=== PATIENT | female | born 1940 | race Caucasian/White ===

== ENCOUNTER → 2016-04-25 | Outpatient (CLI) | payer MEDICARE | LOC: M LAB 08:41 | PROVIDERS: ATTEND Family Medicine | DX: E11.9 Type 2 diabetes mellitus without complications (principal); R07.2 Precordial pain ==

== ENCOUNTER → 2016-04-25 | Outpatient (CLI) | payer MEDICARE ==
[2016-04-25 10:05] LABS: ALBUMIN 3.9 GM/DL (3.2-5.2); ALBUMIN/GLOBULIN RATIO 1.22 (1.00-1.93); BILIRUBIN,DIRECT 0.1 MG/DL (0.0-0.2); BILIRUBIN,TOTAL 0.5 MG/DL (0.2-1.0); TOTAL PROTEIN 7.1 GM/DL (6.4-8.2)
== END ==
LOC: M LAB 08:44
PROVIDERS: ATTEND Internal Medicine Cardiovascular Disease
DX: R07.2 Precordial pain (principal)

== ENCOUNTER → 2016-05-17 | Outpatient (CLI) | payer MEDICARE ==
[~2016-05-17] MED LIST: E-Z PAQUE 60% w/v SUSP 355ML BOTTLE As Ordered ONE; E-Z-GAS II EFFERVESCENT PACKET (SODIUM BICARB./CITRIC ACID/SIMETHICONE) As Ordered ONE; E-Z-HD 98% w/w 340GM SUSP BTL As Ordered ONE
--- NOTE | 2016-05-17 11:41 | REP ---
BARIUM ESOPHAGRAM WITH PA CHEST: 05/17/2016. Clinical history: Hoarseness, reflux symptoms. No comparison study. Findings: The PA chest shows lungs well inflated and clear. The heart is not enlarged. The aorta is tortuous but without aneurysm. Airway intact. Bones show degenerative changes in the spine and shoulders. Findings: Lateral barium esophagram images were obtained. The oral pharyngeal transfer function was normal. There was no laryngeal penetration or aspiration on the initial swallow. As she swallowed unintentionally on the second attempted images and only distal esophagram images were seen with normal distensibility and mucosal appearance. There is no stricture, hiatal hernia, mass or extrinsic mass effect. On the third swallow, she coughed and I was only able to get late images of the swallow. It was apparent than that there had been a small volume of aspiration of barium into the trachea. No further barium was given at that point. I did have her lay down and when through a variety of positions and maneuvers. I was able to elicit one episode of reflux in the lower esophageal segment. Impression: 1. There was normal oral pharyngeal transfer with prompt bolus formation and transfer. On the third swallow, she did have some laryngeal penetration and aspiration and I halted any further barium swallow. I do not see an hiatal hernia. A variety of maneuvers and positions were utilized to attempt to define reflux which was seen once into the lower esophageal segment. 2. Recommend modified barium swallow to be conducted in conjunction with speech pathology to evaluate her aspiration risk and potential modifications of her diet. Fluoroscopy time: 1 minute 8 seconds. Signed by Hill Malcolm MD 05/17/2016 01:21 P
== END ==
LOC: M RAD 09:51
PROVIDERS: ATTEND Otolaryngology
DX: K21.9 Gastro-esophageal reflux disease without esophagitis (principal)

== ENCOUNTER → 2016-07-03 | Outpatient (CLI) | payer MEDICARE ==
[~2016-07-03] MED LIST changes: -E-Z-GAS II EFFERVESCENT PACKET (SODIUM BICARB./CITRIC ACID/SIMETHICONE) As Ordered ONE; -E-Z-HD 98% w/w 340GM SUSP BTL As Ordered ONE; +VARIBAR PUDDING 40% w/v 230ML TUBE As Ordered ONE
--- NOTE | 2016-07-03 17:00 | REP ---
COOKIE SWALLOW: The procedure was performed under the direct supervision of Dr. Morales. The procedure was performed with Antoinette Youngblood from speech pathology present. 5 mL aliquots of nectar pudding solid and thin consistency barium was administered. There is no evidence of penetration or aspiration. A detailed report of this examination will be provided by speech pathology. 36 seconds of fluoroscopy time was utilized for this procedure. Reviewed by CHRIS Coronado 07/04/2016 04:40 PEdited and Signed by Chris Morales MD 07/05/2016 12:54 P
== END ==
LOC: M ST 08:18
PROVIDERS: ATTEND Otolaryngology
DX: R13.10 Dysphagia, unspecified (principal)
CPT/HCPCS: 74230; 92611; G8996; G8997; G8998

== ENCOUNTER → 2016-07-24 | Outpatient (CLI) | payer MEDICARE | LOC: M LAB 08:24 | PROVIDERS: ATTEND Family Medicine | DX: E11.9 Type 2 diabetes mellitus without complications (principal) ==

== ENCOUNTER → 2016-08-09 | Outpatient (REF) | payer MEDICARE | LOC: M LAB REF 11:57 | PROVIDERS: ATTEND Podiatrist | DX: E11.51 Type 2 diabetes mellitus with diabetic peripheral angiopathy without gangrene (principal) ==

== ENCOUNTER → 2016-08-22 | Outpatient (CLI) | payer MEDICARE ==
--- NOTE | 2016-08-24 14:25 | DEXA ---
AP SPINE L1 - L4 1.385 1.5 3.4 LT FEMUR TOTAL 0.910 -0.8 1.1 RT FEMUR TOTAL 0.890 -0.9 0.9 TOTAL BODY TOTAL OTHER DUAL FEMUR FRAX* ASSESSMENT Risk factors: History of fracture (adult.) Secondary osteoporosis ( premature menopause.) 10 year probability of fracture Major osteoporotic fracture 15.9 % Hip fracture 2.6 % COMMENTS: Normal bone densitometry of the spine and hips. There is low bone density of the hips. The decreased density of the spine does not represent a significant change. The decreased density of the left hip does not represent a significant change. The decreased density of the right hip does represent a significant change. The density of the spine has increased 31.9% since the initial exam on 2001. The spine density has decreased 1.1% since the most recent exam on 08/09/2013. The density of the left hip has increased 3.3% since the initial exam on 2001. The density of the left hip has decreased 1.4% since the most recent exam on . The density of the right hip has increased 2.4% since the initial exam on 2001. The density of the right hip has decreased 2.6% since the most recent exam on . FOLLOW-UP: Recommendation for the next bone density exam: 2 years. TANI
== END ==
LOC: M WHC 13:28
PROVIDERS: ATTEND Family Medicine
DX: M81.0 Age-related osteoporosis without current pathological fracture (principal)

== ENCOUNTER 2016-09-14 11:00 | Outpatient (RCR) | payer MEDICARE | END 2016-09-21 | disposition home or self-care (01) | LOC: M ST 11:00 | PROVIDERS: ATTEND Otolaryngology | DX: Z51.89 Encounter for other specified aftercare (principal) | CPT/HCPCS: 92507; 92524; G9171; G9172 ==

== ENCOUNTER → 2016-10-19 | Outpatient (REF) | payer MEDICARE ==
[~2016-10-19] MED LIST changes: +ATOR40TA75; -E-Z PAQUE 60% w/v SUSP 355ML BOTTLE As Ordered ONE; +GABA-282 PO; +NITR0.4S14; +PROP80TA PO; +RANI300T; +SPIR25TA2; -VARIBAR PUDDING 40% w/v 230ML TUBE As Ordered ONE
== END ==
LOC: M LAB REF 16:15
PROVIDERS: ATTEND Obstetrics & Gynecology
DX: N39.46 Mixed incontinence (principal); R39.89 Other symptoms and signs involving the genitourinary system

== ENCOUNTER → 2016-11-05 | Outpatient (REF) | payer MEDICARE ==
[2016-11-05 16:28] LABS: CREATININE FOR GFR 1.25 MG/DL (0.55-1.02); GLOMERULAR FILTRATION RATE 44.4 (>39)
[2016-11-05 16:29] LABS: POTASSIUM SERUM 5.3 MEQ/L (3.5-5.1)
== END ==
LOC: M SFHCPLAZ 10:30
PROVIDERS: ATTEND Family Medicine
DX: E11.9 Type 2 diabetes mellitus without complications (principal); I11.0 Hypertensive heart disease with heart failure

== ENCOUNTER → 2016-11-14 | Outpatient (REF) | payer MEDICARE ==
[2016-11-14 14:23] LABS: CALCIUM LEVEL 10.1 MG/DL (8.8-10.2); CREATININE FOR GFR 1.38 MG/DL (0.55-1.02); GLOMERULAR FILTRATION RATE 39.6 (>39)
== END ==
LOC: M SFHCPLAZ 10:47
PROVIDERS: ATTEND Family Medicine
DX: I11.0 Hypertensive heart disease with heart failure (principal)

== ENCOUNTER 2017-01-10 15:20 | Emergency (ER) | payer MEDICARE ==
[~2017-01-10] VITALS: Ht 165.1 cm; Wt 64.5 kg
[2017-01-10] MEDS ORDERED: RANI300T (15:37)
[2017-01-10] MEDS ORDERED: GABA-282 PO (15:37)
[2017-01-10] MEDS ORDERED: ATOR40TA75 (15:37)
[2017-01-10] MEDS ORDERED: SPIR25TA2 (15:37)
[2017-01-10] MEDS ORDERED: PROP80TA PO (15:37)
[2017-01-10] MEDS ORDERED: NITR0.4S14 (15:37)
--- NOTE | 2017-01-10 18:35 | REP ---
RIGHT FOREARM SERIES COMPLETE: 01/10/2017: Comparison: 06/01/2008. Clinical history trauma, fell, midshaft pain. Two views of the forearm provided. The bones are severely demineralized. There are degenerative changes at the wrist. I see no fracture of the radius or ulna. There is chronic fracture through the waist of the scaphoid as seen on x-ray 09/01/2010, unchanged. Radial head and capitellum align normally. No definite effusion. Impression: 1. Demineralization without fracture, radius or ulna. 2. 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 Signed by Hill Malcolm MD 01/10/2017 08:12 P
--- NOTE | 2017-01-10 18:37 | REP ---
THORACIC SPINE THREE VIEWS: 01/10/2017. Comparison: 10/03/2007. Clinical history: Trauma. Findings: AP lateral and coned lateral view of the cervicothoracic junction were provided. There is dextroconvex curvature of the lower thoracic upper lumbar spine. There is degenerative disc change with disc space narrowing and marginal osteophytes greatest the lower thoracic upper lumbar spine and progressive compared to the previous study. The pedicles, spinous and transverse processes visible posterior rib articulations and the medial clavicles were grossly intact. On the lateral view discogenic endplate sclerosis and vacuum phenomenon at lower thoracic upper lumbar levels are noted. These are new finding since 2007 but not acute. No compression deformity or destructive lesion. There is no abnormal kyphosis. The cervical thoracic junction aligns normally. There is cervical spondylosis and anterolisthesis of the C4-5 due to facet arthropathy. Impression: 1. Degenerative disc changes greatest in the lower thoracic/upper lumbar spine with disc space narrowing, vacuum phenomenon and marginal osteophytes. No compression deformity or destructive lesion. The findings are progressive over the 9 years from the previous exam. No other new finding in the upper thoracic region. Signed by Hill Malcolm MD 01/10/2017 08:13 P
--- NOTE | 2017-01-10 18:39 | REP ---
LUMBAR SPINE COMPLETE: 01/10/2017. Comparison: MRI lumbar spine 07/31/2001. Clinical history: Trauma. Findings: Five views provided. Dextroconvex curvature thoracolumbar spine. Levoconvex curvature of the lower lobe lumbar spine centered at L3-4. Diffuse degenerative disc changes from the lower thoracic through the lower lumbar spine. Marginal osteophytes throughout. Pedicle, spinous and transverse processes intact. There is facet arthropathy greatest at L5, S1 and L4-5 and the left but also significant L2-3 on the right. Midline wire sutures in the infraumbilical abdomen and pelvis. SI joints, sacral ala and foramina intact. There is facet arthropathy without spondylolysis or spondylolisthesis. Vascular calcifications of the aorta and disc space narrowing L2-3 through L5-S1 with vacuum phenomenon also T12-L1. Impression 1. Diffuse degenerative disc changes and facet arthropathy with marginal osteophytes throughout. No compression fractures or other acute finding. There is facet arthropathy. Signed by Hill Malcolm MD 01/10/2017 08:13 P
--- NOTE | 2017-01-10 18:41 | REP ---
SACRUM, COCCYX: 01/10/2017. Clinical history: Trauma, pain. Findings: Three views sacrum and coccyx provided. Inlet and outlet view shows sacral ala and foramina symmetric. SI joints show symmetric sclerosis in the iliac greater than sacral side. Lower lumbar degenerative disc and facet changes are seen. The pelvic ring is intact. Symphysis pubis and pubic rami intact. That portion of the hips noted also symmetric and preserved. Lateral view shows degenerative disc changes L3-4 through L5-S1 and facet arthritis. I do not see a definite displaced fracture of the sacrum or coccyx. Impression: 1. Sacrum and coccyx with some degenerative changes at the SI joints and lower lumbar spine but no fracture or destructive lesion is visible. Signed by Hill Malcolm MD 01/10/2017 08:14 P
--- NOTE | 2017-01-10 18:54 | REP ---
BILATERAL CALCANEUS: 01/10/2017. Technique: Two views each calcaneus performed. Clinical history: Trauma. Findings: LEFT CALCANEUS: Comparison ankle series 11/06/2014. Subtalar joints intact. There is a plantar calcaneal spur without an Achilles insertion spur. No fracture of the calcaneus noted on the lateral or [place] views. Talonavicular and calcaneocuboid joints normal. No acute finding. Impression 1. Plantar calcaneal heel spur . Otherwise negative for acute finding. RIGHT CALCANEUS: A plantar calcaneal spur without Achilles insertion spur. The subtalar joints are intact. Talonavicular and calcaneocuboid joints are normal. Distal tibia and fibula intact. The [place] view showed no focal lesion. Impression: 1. Plantar calcaneal heel spur without fracture or other acute finding. Signed by Hill Malcolm MD 01/10/2017 08:14 P
[2017-01-10 19:21] VITALS: BP 147/72
== END 2017-01-10 19:35 | disposition home or self-care (01) ==
LOC: M ED 15:20
DX: S50.811A Abrasion of right forearm, initial encounter (principal); S50.11XA Contusion of right forearm, initial encounter; S33.8XXA Sprain of other parts of lumbar spine and pelvis, initial encounter; W10.9XXA Fall (on) (from) unspecified stairs and steps, initial encounter; Y92.099 Unspecified place in other non-institutional residence as the place of occurrence of the external cause; Y93.9 Activity, unspecified; Y99.9 Unspecified external cause status; I10 Essential (primary) hypertension; K21.9 Gastro-esophageal reflux disease without esophagitis; K58.9 Irritable bowel syndrome, unspecified; E11.9 Type 2 diabetes mellitus without complications; M77.31 Calcaneal spur, right foot; M77.32 Calcaneal spur, left foot; M51.86 Other intervertebral disc disorders, lumbar region; M51.85 Other intervertebral disc disorders, thoracolumbar region; M81.0 Age-related osteoporosis without current pathological fracture; Z87.81 Personal history of (healed) traumatic fracture; Z79.899 Other long term (current) drug therapy; Z88.6 Allergy status to analgesic agent; Z88.5 Allergy status to narcotic agent

== ENCOUNTER → 2017-02-21 | Outpatient (REF) | payer MEDICARE | LOC: M SFHCPLAZ 13:38 | PROVIDERS: ATTEND Family Medicine | DX: D49.2 Neoplasm of unspecified behavior of bone, soft tissue, and skin (principal) ==

== ENCOUNTER → 2017-03-07 | Outpatient (REF) | payer MEDICARE ==
[2017-03-07 16:32] LABS: CALCIUM LEVEL 10.2 MG/DL (8.8-10.2); CREATININE FOR GFR 1.13 MG/DL (0.55-1.02); GLOMERULAR FILTRATION RATE 49.8 (>39); POTASSIUM SERUM 4.6 MEQ/L (3.5-5.1)
== END ==
LOC: M SFHCPLAZ 14:24
PROVIDERS: ATTEND Family Medicine
DX: E11.9 Type 2 diabetes mellitus without complications (principal); I11.0 Hypertensive heart disease with heart failure

== ENCOUNTER → 2017-04-17 | Outpatient (REF) | payer MEDICARE ==
[2017-04-17 15:45] LABS: ANION GAP 7 MEQ/L (8-16); BLOOD UREA NITROGEN 40 MG/DL (7-18); CALCIUM LEVEL 10.7 MG/DL (8.8-10.2); CARBON DIOXIDE LEVEL 28 MEQ/L (21-32); CHLORIDE LEVEL 102 MEQ/L (98-107); CREATININE FOR GFR 1.32 MG/DL (0.55-1.02); GLOMERULAR FILTRATION RATE 41.5 (>39); GLUCOSE, FASTING 123 MG/DL (70-100); POTASSIUM SERUM 4.4 MEQ/L (3.5-5.1); SODIUM LEVEL 137 MEQ/L (136-145)
[2017-04-17 15:56] LABS: CREATININE, URINE 50.6 MG/DL; MALB URINE SIEMENS 18.1 MG/L; MAU/CREAT RATIO 35.7 MCG/MG (0.0-30.0)
== END ==
LOC: M SFHCPLAZ 13:45
DX: I11.0 Hypertensive heart disease with heart failure (principal); R80.9 Proteinuria, unspecified
CPT/HCPCS: 82043

== ENCOUNTER → 2017-05-01 | Outpatient (CLI) | payer MEDICARE | LOC: M WHC 10:06 | DX: Z12.31 Encounter for screening mammogram for malignant neoplasm of breast (principal); E83.52 Hypercalcemia; Z78.0 Asymptomatic menopausal state | CPT/HCPCS: 82330 ==

== ENCOUNTER → 2017-05-01 | Outpatient (REF) | payer MEDICARE ==
[2017-05-01 11:50] LABS: IONIZED CALCIUM 5.9 MG/DL (4.5-5.3)
== END ==
LOC: M SFHCPLAZ 09:49
DX: E83.52 Hypercalcemia (principal)

== ENCOUNTER → 2017-05-07 | Outpatient (REF) | payer MEDICARE ==
[2017-05-07 20:25] LABS: PTH INTACT 43.2 PG/ML (18.5-88.0)
== END ==
LOC: M SFHCPLAZ 15:09
DX: E83.52 Hypercalcemia (principal)
CPT/HCPCS: 83970

== ENCOUNTER → 2017-05-21 | Outpatient (REF) | payer MEDICARE ==
[2017-05-21 14:12] LABS: TOTAL 25(OH) VITAMIN D 47.2 NG/ML (30.0-100.0)
[2017-05-24 00:07] LABS: VITAMIN D 1,25 DIHYDROXY 26.5 pg/mL (19.9-79.3)
== END ==
LOC: M SFHCPLAZ 10:15
DX: E83.52 Hypercalcemia (principal)
CPT/HCPCS: 82652

== ENCOUNTER → 2017-05-31 | Outpatient (REF) | payer MEDICARE ==
[2017-05-31 13:06] LABS: TOTAL PROTEIN 7.5 GM/DL (6.4-8.2)
[2017-06-01 14:14] LABS: FREE KAPPA LIGHT CHAINS SERUM 25.1 mg/L (3.3-19.4); FREE LAMBDA LIGHT CHAINS SERUM 12.6 mg/L (5.7-26.3); KAPPA/LAMBDA RATIO SERUM 1.99 (0.26-1.65)
[2017-06-03 11:53] LABS: ALBUMIN 4.43 GM/DL (3.29-5.55); ALBUMIN % 59.1 % (55.8-66.1); ALPHA-1-GLOBULIN % 4.6 % (2.9-4.9); ALPHA-1-GLOBULINS 0.35 GM/DL (0.17-0.41); ALPHA-2-GLOBULINS 0.83 GM/DL (0.42-0.99); BETA-1-GLOBULINS 0.52 GM/DL (0.28-0.60); BETA-1-GLOBULINS % 6.9 % (4.7-7.2)
[2017-06-03 11:54] LABS: BETA-2-GLOBULINS 0.41 GM/DL (0.19-0.55); BETA-2-GLOBULINS % 5.5 % (3.2-6.5); GAMMA GLOBULIN % 12.9 % (11.1-18.8); GAMMA GLOBULINS 0.97 GM/DL (0.65-1.58)
== END ==
LOC: M SFHCPLAZ 10:29
DX: E83.52 Hypercalcemia (principal)
CPT/HCPCS: 84165

== ENCOUNTER → 2017-07-19 | Outpatient (REF) | payer MEDICARE ==
[2017-07-19 17:16] LABS: ANION GAP 8 MEQ/L (8-16); BLOOD UREA NITROGEN 44 MG/DL (7-18); CALCIUM LEVEL 10.2 MG/DL (8.8-10.2); CARBON DIOXIDE LEVEL 29 MEQ/L (21-32); CHLORIDE LEVEL 103 MEQ/L (98-107); CREATININE FOR GFR 1.36 MG/DL (0.55-1.30); GLOMERULAR FILTRATION RATE 40.1 (>39); GLUCOSE, FASTING 144 MG/DL (70-100); POTASSIUM SERUM 4.3 MEQ/L (3.5-5.1); SODIUM LEVEL 140 MEQ/L (136-145)
[2017-07-19 17:17] LABS: IONIZED CALCIUM 5.3 MG/DL (4.5-5.3)
[2017-07-19 18:00] LABS: ESTIMATED AVERAGE GLUCOSE 143 MG/DL (60-110); HEMOGLOBIN A1c 6.6 %
[2017-07-19 18:04] LABS: PTH INTACT 52.9 PG/ML (18.5-88.0)
== END ==
LOC: M SFHCPLAZ 15:02
DX: E83.52 Hypercalcemia (principal); E11.9 Type 2 diabetes mellitus without complications; N18.3 Chronic kidney disease, stage 3 (moderate)
CPT/HCPCS: 83036

== ENCOUNTER → 2017-08-20 | Outpatient (REF) | payer MEDICARE ==
[2017-08-20 12:58] LABS: ALBUMIN 3.8 GM/DL (3.2-5.2); ALBUMIN/GLOBULIN RATIO 1.06 (1.00-1.93); ALKALINE PHOSPHATASE 116 U/L (45-117); ALT/SGPT 23 U/L (12-78); ANION GAP 9 MEQ/L (8-16); AST/SGOT 17 U/L (7-37); BILIRUBIN,TOTAL 0.3 MG/DL (0.2-1.0); BLOOD UREA NITROGEN 45 MG/DL (7-18); CALCIUM LEVEL 10.2 MG/DL (8.8-10.2); CARBON DIOXIDE LEVEL 24 MEQ/L (21-32); CHLORIDE LEVEL 103 MEQ/L (98-107); CHOLESTEROL LEVEL 169 MG/DL (<200); CHOLESTEROL RISK RATIO 3.755 (<5); CREATININE FOR GFR 1.53 MG/DL (0.55-1.30); GLUCOSE, FASTING 134 MG/DL (70-100); HDL CHOLESTEROL 45 MG/DL (>40); LDL CHOLESTEROL 95.2 MG/DL (<100); NON-HDL-C 124 MG/DL; POTASSIUM SERUM 4.7 MEQ/L (3.5-5.1); SODIUM LEVEL 136 MEQ/L (136-145); TOTAL PROTEIN 7.4 GM/DL (6.4-8.2); TRIGLYCERIDES LEVEL 144 MG/DL (<150)
== END ==
LOC: M SFHCPLAZ 10:24
DX: E78.5 Hyperlipidemia, unspecified (principal)
CPT/HCPCS: 80053

== ENCOUNTER 2017-09-13 12:20 | Emergency (ER) | payer MEDICARE ==
[2017-09-13] MEDS: ACETAMINOPHEN TAB 650MG DOSE (2X325MG) PO (13:39)
== END 2017-09-13 14:00 | disposition home or self-care (01) ==
LOC: M ED 12:20
DX: M25.561 Pain in right knee (principal); M25.562 Pain in left knee; M25.532 Pain in left wrist; M17.0 Bilateral primary osteoarthritis of knee; M25.461 Effusion, right knee; Z87.81 Personal history of (healed) traumatic fracture; E11.40 Type 2 diabetes mellitus with diabetic neuropathy, unspecified; I10 Essential (primary) hypertension; L82.1 Other seborrheic keratosis; Z85.828 Personal history of other malignant neoplasm of skin; Z79.899 Other long term (current) drug therapy; Z88.8 Allergy status to other drugs, medicaments and biological substances; Z88.6 Allergy status to analgesic agent
CPT/HCPCS: 73110

== ENCOUNTER → 2017-10-01 | Outpatient (CLI) | payer MEDICARE | LOC: M RAD 17:18 | DX: N18.3 Chronic kidney disease, stage 3 (moderate) (principal); I12.9 Hypertensive chronic kidney disease with stage 1 through stage 4 chronic kidney disease, or unspecified chronic kidney disease; E11.22 Type 2 diabetes mellitus with diabetic chronic kidney disease; E83.52 Hypercalcemia | CPT/HCPCS: 76775 ==

== ENCOUNTER 2017-10-08 13:56 | Outpatient (RCR) | payer MEDICARE | END 2017-10-22 | LOC: M PT 13:56 | DX: Z51.89 Encounter for other specified aftercare (principal); M17.0 Bilateral primary osteoarthritis of knee | CPT/HCPCS: 97110 ==

== ENCOUNTER 2017-10-29 12:08 | Outpatient (RCR) | payer MEDICARE | END 2017-11-22 | LOC: M PT 12:08 | DX: Z51.89 Encounter for other specified aftercare (principal); M17.0 Bilateral primary osteoarthritis of knee | CPT/HCPCS: 97110 ==

== ENCOUNTER → 2017-11-12 | Outpatient (REF) | payer MEDICARE ==
[2017-11-12 18:51] LABS: APPEARANCE, URINE TURBID (CLEAR); BACTERIA, URINE AUTO 1+ (NEGATIVE); BILIRUBIN, URINE AUTO NEGATIVE (NEGATIVE); BLOOD, URINE BLOOD 1+ (NEGATIVE); COLOR, URINE AMBER (YELLOW); GLUCOSE, URINE (UA) AUTO NEGATIVE (NEGATIVE); KETONE, URINE AUTO NEGATIVE (NEGATIVE); LEUKOCYTE ESTERASE, URINE AUTO 3+ (NEGATIVE); NITRITE, URINE AUTO NEGATIVE (NEGATIVE); PROTEIN, URINE AUTO NEGATIVE (NEGATIVE); RBC, URINE AUTO 20 /HPF (0-3); SQUAMOUS EPITHELIAL CELL UR AU 1 /HPF (0-6); UROBILINOGEN, URINE AUTO 0.2 mg/dL (0.0-2.0); WBC, URINE AUTO TNTC /HPF (0-3)
== END ==
LOC: M LAB REF 18:22
DX: N39.0 Urinary tract infection, site not specified (principal)
CPT/HCPCS: 81001

== ENCOUNTER → 2017-11-27 | Outpatient (REF) | payer MEDICARE ==
[2017-11-27 15:46] LABS: ESTIMATED AVERAGE GLUCOSE 134 MG/DL (60-110); HEMOGLOBIN A1c 6.3 %
== END ==
LOC: M SFHCPLAZ 11:33
DX: E11.9 Type 2 diabetes mellitus without complications (principal)
CPT/HCPCS: 83036

== ENCOUNTER → 2018-01-02 | Outpatient (CLI) | payer MEDICARE ==
[2018-01-02 13:34] LABS: BLOOD UREA NITROGEN 29 MG/DL (7-18)
[2018-01-02 13:34] LABS: CREATININE FOR GFR 1.07 MG/DL (0.55-1.30); GLOMERULAR FILTRATION RATE 52.9 (>39)
[2018-01-02 14:07] LABS: ERYTHROCYTE SEDIMENTATION RATE 15 mm/hr (0-30)
== END ==
LOC: M LAB 12:46
DX: H02.401 Unspecified ptosis of right eyelid (principal)
CPT/HCPCS: 82565

== ENCOUNTER → 2018-01-29 | Outpatient (REF) | payer MEDICARE ==
[2018-01-30 14:44] LABS: TOTAL PROTEIN 7.8 GM/DL (6.4-8.2)
[2018-02-01 08:06] LABS: FREE LAMBDA LIGHT CHAINS URINE 4.23 mg/L (0.24-6.66); KAPPA/LAMBDA RATIO URINE 11.32 (2.04-10.37)
[2018-02-01 08:06] LABS: VITAMIN D 1,25 DIHYDROXY 19.4 pg/mL (19.9-79.3)
[2018-02-01 10:16] LABS: URINE TOTAL PROTEIN 13.8 MG/DL (0-12)
[2018-02-04 09:50] LABS: ALBUMIN 4.39 GM/DL (3.29-5.55); ALBUMIN % 56.3 % (55.8-66.1); ALPHA-1-GLOBULINS 0.39 GM/DL (0.17-0.41); ALPHA-2-GLOBULINS 0.96 GM/DL (0.42-0.99); ALPHA-2-GLOBULINS % 12.3 % (7.1-11.8); BETA-1-GLOBULINS 0.54 GM/DL (0.28-0.60); BETA-1-GLOBULINS % 6.9 % (4.7-7.2); BETA-2-GLOBULINS 0.46 GM/DL (0.19-0.55); BETA-2-GLOBULINS % 5.9 % (3.2-6.5); GAMMA GLOBULIN % 13.6 % (11.1-18.8); GAMMA GLOBULINS 1.06 GM/DL (0.65-1.58)
== END ==
LOC: M LAB REF 13:16
DX: E83.52 Hypercalcemia (principal)
CPT/HCPCS: 84165

== ENCOUNTER → 2018-03-11 | Outpatient (CLI) | payer MEDICARE ==
[~2018-03-11] MED LIST changes: -GABA-282 PO; +GABA-843 PO; +GASTROGRAFIN SOLUTION 30ML (Q9963) As Ordered ONE; +IBUP200T45 PO; +ISOVUE-370 76% 100ML VIAL (Q9967) As Ordered ONE; +SPIR-10; +SPIR1TAB34; -SPIR25TA2
--- NOTE | 2018-03-11 19:11 | REP ---
CT chest without contrast: History: Hypercalcemia, abnormal weight loss, chronic kidney disease. Comparison CT imaging is from February 23, [address] CT findings: There are multiple small subcentimeter pleural-based nodules in the lower lobes bilaterally which are all felt to be unchanged from the 2008 prior study. There is some linear fibrosis in the right middle lobe. No pulmonary mass lesion or significant nodule is seen. No infiltrate is noted. There is no evidence of pleural or pericardial effusion. No hilar or mediastinal mass or adenopathy is observed. No adrenal lesion is seen. Vascular calcification is noted. Impression: No active cardiopulmonary disease. Electronically Signed by Steve Maciel MD 03/11/2018 07:57 P
--- NOTE | 2018-03-11 19:11 | REP ---
CT abdomen and pelvis without and with IV contrast: With oral contrast. History: Hypercalcemia. Weight loss. Chronic kidney disease. CT contrast dose: 100 ml of intravenous Isovue [address] findings: The liver and the spleen are normal in size and homogeneous in texture on pre and postcontrast images. There is a small accessory splenule. No adrenal lesion is seen. There is some diffuse cortical atrophy affecting the kidneys. No renal mass or hydronephrosis is seen. No intrarenal calculus is observed. No retroperitoneal mass or adenopathy is seen. No abnormalities noted in the pancreas. There is a septation in the gallbladder. No evidence of stone by CT. No retroperitoneal mass is seen. There are scattered normal-sized retroperitoneal lymph nodes. No abdominal wall defect is seen. Normal appendix is seen. There is left colonic diverticulosis. No CT evidence of diverticulitis. Small and large intestinal bowel loops are otherwise unremarkable. Uterus is surgically absent. Urinary bladder is unremarkable. Impression: Diffuse cortical atrophy of the kidneys. No abdominal mass or adenopathy. Left colonic diverticulosis. No CT evidence of diverticulitis. Status post hysterectomy. Electronically Signed by Steve Maciel MD 03/11/2018 07:56 P
== END ==
LOC: M RAD 14:42
PROVIDERS: ATTEND Internal Medicine Nephrology
DX: E83.52 Hypercalcemia (principal); N18.3 Chronic kidney disease, stage 3 (moderate); R63.4 Abnormal weight loss; J84.10 Pulmonary fibrosis, unspecified; R91.8 Other nonspecific abnormal finding of lung field; K57.30 Diverticulosis of large intestine without perforation or abscess without bleeding; N26.1 Atrophy of kidney (terminal)
CPT/HCPCS: 71250; 74178; Q9963; Q9967

== ENCOUNTER → 2018-03-27 | Outpatient (REF) | payer MEDICARE ==
[~2018-03-27] MED LIST changes: -GASTROGRAFIN SOLUTION 30ML (Q9963) As Ordered ONE; -ISOVUE-370 76% 100ML VIAL (Q9967) As Ordered ONE
[2018-03-27 19:25] LABS: CREATININE 24 HOUR, URINE 785.2 MG/24HR (600-1800); CREATININE, URINE 33.7 MG/DL
[2018-03-27 21:48] LABS: CALCIUM, URINE 6.4 MG/DL
[2018-03-27 21:51] LABS: CALCIUM, 24 HOUR URINE 149.1 MG/24HR (42-353)
== END ==
LOC: M LAB REF 17:36
PROVIDERS: ATTEND Internal Medicine Nephrology
DX: E83.52 Hypercalcemia (principal)

== ENCOUNTER → 2018-04-22 | Outpatient (REF) | payer MEDICARE | LOC: M LAB REF 15:25 | PROVIDERS: ATTEND Ophthalmology | DX: H01.009 Unspecified blepharitis unspecified eye, unspecified eyelid (principal) ==

== ENCOUNTER 2018-04-30 06:50 | Day surgery (SDC) | payer MEDICARE ==
[~2018-04-30] VITALS: Ht 162.6 cm; Wt 61.7 kg
[~2018-04-30 06:50] MED LIST changes: +APAP500T10 PO; +ASPI81TA85 PO; +CEPH500C PO; +HAIR1TAB5 PO; +LIDOCAINE 2% W/EPIN INJ 20ML **PRES FREE As Ordered ONE; +POVIDONE-IODINE 5% OPHTH PREP SOL 30ML As Ordered ONE; -RANI300T; +RANI300T PO; +SPIR-10 PO; +TOBRADEX OPHTH OINT 3.5 GM As Ordered ONE; +ZYRT10CA5 PO
[2018-04-30] MEDS ORDERED: LIDOCAINE 3.5 % 1ML OPHTH TOPICAL GEL OU ONE (07:00)
[2018-04-30] MEDS ORDERED: SODIUM BICARBONATE 8.4% INJ 50MEQ 50 ML VIAL As Ordered ONE (07:54)
[2018-04-30] MEDS ORDERED: fentaNYL 100 MCG/2 ML INJECTION (J3010) As Ordered ONE (08:13)
[2018-04-30] MEDS ORDERED: PROPOFOL 200 MG/20 ML VIAL As Ordered ONE (08:13)
[2018-04-30] MEDS ORDERED: LIDOCAINE 2% INJ 100 MG/5 ML SDV (FOR ANES.) As Ordered ONE (08:13)
[2018-04-30] MEDS ORDERED: MIDAZOLAM INJ 2 MG/2 ML VIAL (J2250) As Ordered ONE (08:13)
[2018-04-30 10:55] VITALS: BP 174/77
--- NOTE | 2018-05-01 16:14 | RO ---
DATE OF PROCEDURE: 04/30/2018 PREOPERATIVE DIAGNOSES: Ptosis and dermatochalasis both upper lids. POSTOPERATIVE DIAGNOSES: Ptosis and dermatochalasis both upper lids. PROCEDURE: Ptosis repair and blepharoplasty both upper lids. SURGEON: Wiley Loaiza MD [employer]S ASSEMBLER: None. ANESTHESIA: Local IV standby. COMPLICATIONS: None. PROCEDURE IN DETAIL: Patient was brought to the operating room and laid in supine position. The upper face was prepped and draped in a sterile fashion for ophthalmic surgery. Following which, both upper lids were marked with a sterile marker along the line of the intended skin excision. Following which, both upper lids were infiltrated with 2% lidocaine with 1:100,000 epinephrine. Attention was directed to the right eye. With the help of the electrocautery the skin was excised. Hemostasis was obtained as necessary. Deeper dissection was carried out to isolate the medial and lateral fat pads, which were excised, and hemostasis obtained as needed. #6-0 nylon sutures were then used to reattach the levator aponeurosis. Lid position was checked and was noted to be satisfactory. Following this, the skin was closed using #6-0 nylon sutures. Exactly the same procedure was repeated for the left upper lid. Following this, ice packs were applied. Bacitracin ophthalmic ointment was applied, and patient returned to recovery room in stable condition.
== END 2018-04-30 11:00 | disposition home or self-care (01) ==
LOC: M SDC 06:50
PROVIDERS: ATTEND Ophthalmology
DX: H02.413 Mechanical ptosis of bilateral eyelids (principal); H02.834 Dermatochalasis of left upper eyelid; H02.831 Dermatochalasis of right upper eyelid; I12.9 Hypertensive chronic kidney disease with stage 1 through stage 4 chronic kidney disease, or unspecified chronic kidney disease; I50.9 Heart failure, unspecified; N18.3 Chronic kidney disease, stage 3 (moderate); E11.22 Type 2 diabetes mellitus with diabetic chronic kidney disease; E11.42 Type 2 diabetes mellitus with diabetic polyneuropathy; K21.9 Gastro-esophageal reflux disease without esophagitis; M17.0 Bilateral primary osteoarthritis of knee; E55.9 Vitamin D deficiency, unspecified; M85.80 Other specified disorders of bone density and structure, unspecified site; R10.13 Epigastric pain; E53.8 Deficiency of other specified B group vitamins; R51 Headache; J30.9 Allergic rhinitis, unspecified; Z88.6 Allergy status to analgesic agent; Z88.8 Allergy status to other drugs, medicaments and biological substances; Z79.899 Other long term (current) drug therapy; Z79.82 Long term (current) use of aspirin; Z90.710 Acquired absence of both cervix and uterus
CPT/HCPCS: 67904; 88302; J2250; J3010

== ENCOUNTER → 2018-05-30 | Outpatient (CLI) | payer MEDICARE ==
[~2018-05-30] MED LIST changes: -LIDOCAINE 2% W/EPIN INJ 20ML **PRES FREE As Ordered ONE; -POVIDONE-IODINE 5% OPHTH PREP SOL 30ML As Ordered ONE; -TOBRADEX OPHTH OINT 3.5 GM As Ordered ONE
[2018-05-30 14:01] LABS: HEMOGLOBIN A1c 6.2 %
[2018-05-30 14:03] LABS: CALCIUM LEVEL 10.2 MG/DL (8.8-10.2); CREATININE FOR GFR 1.02 MG/DL (0.55-1.30); GLOMERULAR FILTRATION RATE 55.8 (>39); POTASSIUM SERUM 4.7 MEQ/L (3.5-5.1)
== END ==
LOC: M LAB 13:09
PROVIDERS: ATTEND Family Medicine
DX: E11.9 Type 2 diabetes mellitus without complications (principal); E83.52 Hypercalcemia

== ENCOUNTER → 2018-08-29 | Outpatient (REF) | payer MEDICARE | LOC: M SFHCPLAZ 17:24 | PROVIDERS: ATTEND Dermatology | DX: C44.602 Unspecified malignant neoplasm of skin of right upper limb, including shoulder (principal); C44.310 Basal cell carcinoma of skin of unspecified parts of face; C44.320 Squamous cell carcinoma of skin of unspecified parts of face ==

== ENCOUNTER → 2018-10-16 | Outpatient (REF) | payer MEDICARE ==
[~2018-10-16] MED LIST changes: +CETI10CH PO; +CYMB1CAP5 PO; +RA B2500 PO
== END ==
LOC: M SFHCPLAZ 17:04
PROVIDERS: ATTEND Dermatology
DX: C44.602 Unspecified malignant neoplasm of skin of right upper limb, including shoulder (principal); L57.8 Other skin changes due to chronic exposure to nonionizing radiation

== ENCOUNTER → 2018-11-04 | Outpatient (REF) | payer MEDICARE ==
[~2018-11-04] MED LIST changes: -CETI10CH PO; -CYMB1CAP5 PO; -RA B2500 PO
== END ==
LOC: M SFHCPLAZ 16:19
PROVIDERS: ATTEND Dermatology
DX: C44.320 Squamous cell carcinoma of skin of unspecified parts of face (principal)

== ENCOUNTER → 2018-11-18 | Outpatient (REF) | payer MEDICARE | LOC: M SFHCPLAZ 10:09 | PROVIDERS: ATTEND Dermatology | DX: C44.310 Basal cell carcinoma of skin of unspecified parts of face (principal) ==

== ENCOUNTER → 2018-11-19 | Outpatient (REF) | payer MEDICARE ==
[2018-11-19 17:07] LABS: CALCIUM LEVEL 10.4 MG/DL (8.8-10.2); CREATININE FOR GFR 1.18 MG/DL (0.55-1.30); GLOMERULAR FILTRATION RATE 47.2 (>39); POTASSIUM SERUM 4.6 MEQ/L (3.5-5.1)
[2018-11-19 17:53] LABS: HEMOGLOBIN A1c 6.2 %
== END ==
LOC: M SFHCPLAZ 14:41
PROVIDERS: ATTEND Family Medicine
DX: E11.9 Type 2 diabetes mellitus without complications (principal); I12.9 Hypertensive chronic kidney disease with stage 1 through stage 4 chronic kidney disease, or unspecified chronic kidney disease; Z86.39 Personal history of other endocrine, nutritional and metabolic disease

== ENCOUNTER → 2018-11-27 | Outpatient (REF) | payer MEDICARE ==
[~2018-11-27] MED LIST changes: +CETI10CH PO; +CYMB1CAP5 PO; +RA B2500 PO
== END ==
LOC: M SFHCPLAZ 11:43
PROVIDERS: ATTEND Dermatology
DX: C44.320 Squamous cell carcinoma of skin of unspecified parts of face (principal)

== ENCOUNTER → 2018-12-24 | Outpatient (CLI) | payer MEDICARE ==
[2018-12-24 14:08] LABS: HEMATOCRIT 42.7 % (36.0-47.0); HEMOGLOBIN 14.2 g/dl (12.0-15.5); MEAN CORPUSCULAR HEMOGLOBIN 30.1 pg (27.0-33.0); MEAN CORPUSCULAR HGB CONC 33.3 g/dl (32.0-36.5); MEAN CORPUSCULAR VOLUME 90.7 fl (80.0-96.0); PLATELET COUNT, AUTOMATED 287 10^3/uL (150-450); RED BLOOD COUNT 4.71 10^6/uL (4.00-5.40); WHITE BLOOD COUNT 8.1 10^3/uL (4.0-10.0)
[2018-12-24 14:19] LABS: PROTHROMBIN TIME 12.9 SECONDS (11.8-14.0)
[2018-12-24 14:29] LABS: ALBUMIN 4.1 GM/DL (3.2-5.2); BILIRUBIN,TOTAL 0.6 MG/DL (0.2-1.0); CALCIUM LEVEL 10.4 MG/DL (8.8-10.2); CREATININE FOR GFR 1.19 MG/DL (0.55-1.30); GLOMERULAR FILTRATION RATE 46.7 (>39); POTASSIUM SERUM 4.9 MEQ/L (3.5-5.1); TOTAL PROTEIN 7.7 GM/DL (6.4-8.2)
[2018-12-24 14:35] LABS: ERYTHROCYTE SEDIMENTATION RATE 6 mm/hr (0-30)
--- NOTE | 2018-12-24 15:55 | REP ---
HISTORY: Arthritis. COMPARISON: 08/04/2015. The lung connolly are somewhat hyperexpanded. There is no significant change in the appearance of the cardiomediastinal silhouette. There is mild to moderate cardiomegaly. Mild basilar fibrotic changes are noted, status quo. There is thoracic aortic tortuosity, status quo. No acute patchy parenchymal opacities or pleural effusions have developed. There is no change in the osseous structures. IMPRESSION: Stable appearing chronic changes without evidence of acute cardiopulmonary disease. Electronically Signed by Yfn Chicas DO 12/24/2018 05:04 P
== END ==
LOC: M LAB 13:12
PROVIDERS: ATTEND Family Medicine
DX: M17.11 Unilateral primary osteoarthritis, right knee (principal); Z79.01 Long term (current) use of anticoagulants

== ENCOUNTER → 2019-03-23 | Outpatient (REF) | payer MEDICARE ==
[2019-03-23 18:54] LABS: HEMOGLOBIN A1c 6.4 %
== END ==
LOC: M SFHCPLAZ 14:53
PROVIDERS: ATTEND Family Medicine
DX: E11.9 Type 2 diabetes mellitus without complications (principal)

== ENCOUNTER → 2019-08-20 | Outpatient (CLI) | payer MEDICARE ==
--- NOTE | 2019-08-20 14:44 | REP ---
SESTAMIBI RADIONUCLIDE PARATHYROID NUCLEAR SCAN WITH SPECT: HISTORY: Chronic kidney disease. TECHNIQUE: 27.1 mCi of technetium 99m sestamibi is injected. 15-minute delay and 3-hour delayed planar images of the neck and chest and mediastinum are acquired. In addition a SPECT imaging acquisition is acquired and reformatted axial, sagittal, and coronal images are generated and reviewed. SCINTIGRAPHIC FINDINGS: Initial 15-minute images demonstrate expected uptake in the salivary glands and thyroid lobes. No abnormal uptake is seen. Delayed scan images demonstrate washout from the thyroid lobes. No persistent focus of increased uptake is seen in the neck or mediastinum to suggest parathyroid adenoma. SPECT imaging shows no abnormality. IMPRESSION: Negative sestamibi radionuclide parathyroid scintigraphy with SPECT. Electronically Signed by Steve Maciel MD 08/20/2019 04:13 P
== END ==
LOC: M RAD 09:40
PROVIDERS: ATTEND Internal Medicine Nephrology
DX: N18.3 Chronic kidney disease, stage 3 (moderate) (principal); E83.52 Hypercalcemia
CPT/HCPCS: 78070; 78803; A9500

== ENCOUNTER → 2019-09-14 | Outpatient (REF) | payer MEDICARE ==
[2019-09-14 15:43] LABS: ALBUMIN 3.9 GM/DL (3.2-5.2); BILIRUBIN,TOTAL 0.4 MG/DL (0.2-1.0); CALCIUM LEVEL 10.3 MG/DL (8.8-10.2); CHOLESTEROL RISK RATIO 3.734 (<5); CREATININE FOR GFR 1.2 MG/DL (0.55-1.30); GLOMERULAR FILTRATION RATE 46.1 (>39); POTASSIUM SERUM 4.9 MEQ/L (3.5-5.1); TOTAL PROTEIN 7.5 GM/DL (6.4-8.2)
[2019-09-14 15:53] LABS: APPEARANCE, URINE TURBID (CLEAR); BACTERIA, URINE AUTO 3+ (NEGATIVE); BILIRUBIN, URINE AUTO NEGATIVE (NEGATIVE); BLOOD, URINE BLOOD NEGATIVE (NEGATIVE); COLOR, URINE YELLOW (YELLOW); GLUCOSE, URINE (UA) AUTO NEGATIVE (NEGATIVE); KETONE, URINE AUTO NEGATIVE (NEGATIVE); LEUKOCYTE ESTERASE, URINE AUTO 2+ (NEGATIVE); NITRITE, URINE AUTO NEGATIVE (NEGATIVE); PROTEIN, URINE AUTO 2+ mg/dL (NEGATIVE); RBC, URINE AUTO 20 /HPF (0-3); SPECIFIC GRAVITY URINE AUTO 1.017 (1.002-1.035); SQUAMOUS EPITHELIAL CELL UR AU 0 /HPF (0-6); UROBILINOGEN, URINE AUTO 0.2 mg/dL (0.0-2.0); WBC, URINE AUTO TNTC /HPF (0-3)
[2019-09-14 15:59] LABS: HEMOGLOBIN A1c 6.8 %
== END ==
LOC: M SFHCPLAZ 12:25
PROVIDERS: ATTEND Family Medicine
DX: I12.9 Hypertensive chronic kidney disease with stage 1 through stage 4 chronic kidney disease, or unspecified chronic kidney disease (principal); N18.3 Chronic kidney disease, stage 3 (moderate); E78.2 Mixed hyperlipidemia; E11.9 Type 2 diabetes mellitus without complications; R30.0 Dysuria; E53.8 Deficiency of other specified B group vitamins

== ENCOUNTER 2019-12-23 02:49 | Inpatient (IN) | payer MEDICARE ==
[~2019-12-23] VITALS: Ht 162.6 cm; Wt 64.0 kg
[~2019-12-23 02:49] MED LIST changes: -ASPI81TA85 PO; +ASPI81TA86 PO
--- NOTE | 2019-12-23 04:09 | REPVR ---
PROCEDURE INFORMATION: Exam: XR Chest, 1 View Exam date and time: 12/23/2019 3:46 AM Age: 79 years old Clinical indication: Other: Hip injury TECHNIQUE: Imaging protocol: XR of the chest Views: 1 view. COMPARISON: No relevant prior studies available. FINDINGS: Lungs: Mild hyperinflation with increased lucency of lung. No focal infiltrates. Pleural space: Unremarkable. No pleural effusion. No pneumothorax. Heart/Mediastinum: Borderline cardiomegaly. Bones/joints: Unremarkable. IMPRESSION: 1. 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 2. Borderline cardiomegaly despite lordotic projection. 3. Otherwise negative chest. Electronically signed by: Parker Short On 12/23/2019 04:09:36 AM
--- NOTE | 2019-12-23 04:12 | REPVR ---
PROCEDURE INFORMATION: Exam: XR Left Hip with Pelvis when Performed Exam date and time: 12/23/2019 3:46 AM Age: 79 years old Clinical indication: Other: Fall on hip TECHNIQUE: Imaging protocol: XR Left hip with pelvis when performed. Views: 2 or 3 views. COMPARISON: CT ABD PELVIS W/O FOL x WIT 03/11/2018 4:34 PM FINDINGS: Bones/joints: Fracture of the left femoral neck with varus angulation and some cephalad migration of the distal fragment. Soft tissues: Midline opaque sutures over the pelvis. IMPRESSION: Fracture of the left femoral neck with varus angulation and cephalad migration of the distal fragment. Electronically signed by: Parker Short On 12/23/2019 04:12:40 AM
[2019-12-23 04:15] LABS: BASO % 0.3 % (0.0-1.0); EOS # 0.3 10^3/uL (0.0-0.5); EOS % 2.6 % (0.0-3.0); HEMATOCRIT 42.7 % (36.0-47.0); LYMPH # 1.7 10^3/uL (1.5-5.0); LYMPH % 15.4 % (24.0-44.0); MEAN CORPUSCULAR HEMOGLOBIN 28.5 pg (27.0-33.0); MEAN CORPUSCULAR HGB CONC 32.8 g/dl (32.0-36.5); MEAN CORPUSCULAR VOLUME 86.8 fl (80.0-96.0); MONO # 0.8 10^3/uL (0.0-0.8); MONO % 7.3 % (0.0-5.0); NEUTROPHILS # 8.1 10^3/uL (1.5-8.5); NEUTROPHILS % 73.9 % (36.0-66.0); PLATELET COUNT, AUTOMATED 251 10^3/uL (150-450); RED BLOOD COUNT 4.92 10^6/uL (4.00-5.40)
[2019-12-23 04:30] LABS: INR 0.94; PROTHROMBIN TIME 12.8 SECONDS (12.5-14.3)
[2019-12-23 04:40] LABS: ALBUMIN 3.7 GM/DL (3.2-5.2); ALT/SGPT 20 U/L (12-78); BILIRUBIN,DIRECT 0.1 MG/DL (0.0-0.2); BILIRUBIN,TOTAL 0.4 MG/DL (0.2-1.0); BLOOD UREA NITROGEN 23 MG/DL (7-18); CALCIUM LEVEL 10.1 MG/DL (8.8-10.2); CARBON DIOXIDE LEVEL 26 MEQ/L (21-32); CHLORIDE LEVEL 105 MEQ/L (98-107); CK-MB VALUE MASS 1.3 NG/ML (<3.6); CPK CREATINE PHOSPHOKINASE 53 U/L (26-192); CREATININE FOR GFR 1.06 MG/DL (0.55-1.30); GLOMERULAR FILTRATION RATE 53.2 (>39); GLUCOSE, FASTING 133 MG/DL (70-100); MB/CK RELATIVE INDEX 2.45 (< OR =4); POTASSIUM SERUM 4.2 MEQ/L (3.5-5.1); SODIUM LEVEL 138 MEQ/L (136-145); TROPONIN I < 0.02 NG/ML (< 0.10)
[2019-12-23] MEDS: MORPHINE 2 MG/ML 1ML VIAL (J2270) IV PRN ×5 (04:48→20:11)
[2019-12-23] MEDS ORDERED: CARV12.5 PO (05:15)
[2019-12-23] MEDS ORDERED: NITR4TASL SL (05:15)
[2019-12-23] MEDS ORDERED: ASPI-161 PO (05:15)
[2019-12-23] MEDS ORDERED: DULO20CA27 PO (05:15)
[2019-12-23] MEDS ORDERED: CETI10TA8 PO (05:15)
[2019-12-23] MEDS ORDERED: ACET-897 PO (05:15)
[2019-12-23] MEDS ORDERED: BIOT10009 PO (05:15)
--- NOTE | 2019-12-23 05:25 | HPEPDOC ---
General Date of Admission 12/23/19 Date of Service: Dec 23, 2019 Chief Complaint The patient is a 79-year-old female admitted with a reason for visit of FALL. Source: Patient Exam Limitations: No limitations Timing/Duration: 4-6 hours Severity: Moderate Associated Symptoms: Mechanical fall History of Present Illness Patient is 79 years old female with past medical history of hypertension, diabetes diet controlled, neuropathy, diastolic CHF presented to the hospital with leg pain after mechanical fall. Patient stated that earlier today she developed mechanical fall due to slippage. In emergency room patient was found to have on x-ray Fracture of the left femoral neck with varus angulation and cephalad migration of the distal fragment. Home Medications Scheduled Aspirin (Aspirin EC) 81 Mg Tablet.dr, 81 MG PO DAILY, (Reported) Biotin (Biotin) 1,000 Mcg Tab.chew, 2,000 MCG PO DAILY, (Reported) Carvedilol (Carvedilol) 12.5 Mg Tablet, 12.5 MG PO BID, (Reported) Cetirizine HCl (Cetirizine HCl) 10 Mg Tablet, 10 MG PO DAILY, (Reported) Duloxetine HCl (Duloxetine HCl) 20 Mg Capsule.dr, 20 MG PO DAILY, (Reported) Gabapentin (Gabapentin) 300 Mg Cap, 600 MG PO QHS, (Reported) Spironolactone (Spironolactone) 25 Mg Tab, 12.5 MG PO DAILY, (Reported) Scheduled PRN Acetaminophen (Tylenol Extra Strength) 500 Mg Tablet, 1,000 MG PO BID PRN for PAIN, (Reported) Fluticasone Propionate (Flonase Allergy Relief) 9.9 Ml [place].susp, 1 SPRAY NA DAILY PRN for NASAL CONGESTION, (Reported) Nitroglycerin (Nitrostat) 0.4 Mg Tab.subl, 0.4 MG SL NITRO PRN for CHEST PAIN, (Reported) Allergies Coded Allergies: ketorolac (Verified Allergy, Severe, ANAPHYLAXIS, 12/30/18) naproxen (Verified Allergy, Severe, ANAPHYLAXIS, 12/30/18) meperidine (Verified Allergy, Intermediate, NAUSEA AND VOMITING, 12/30/18) nitrofurantoin (Verified Allergy, Intermediate, NAUSEA AND VOMITING, 12/30/18) Past Medical History Medical History Hypertension, type 2 diabetes, neuropathy, seborrheic keratosis, diastolic CHF, 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 Social History * Smoker: Denies Alcohol: Denies Drugs: denies A-FIB/CHADSVASC A-FIB History Current/History of A-Fib/PAF?: No Current PO Anticoag Therapy: No Review of Systems Constitutional: Denies: Chills, Fever ENT: Denies: Head Aches Skin: Denies: Rash, Lesions Pulmonary: Denies: Dyspnea Cardiovascular: Denies: Chest Pain, Palpitations Gastrointestinal: Denies: Nausea, Vomiting Genitourinary: Denies: Dysuria Hematologic: Denies: Bruising Endocrine: Denies: Polydipsia Musculoskeletal: Reports: Leg Pain Neurological: Denies: Weakness, Numbness Psych: Reports: Mood Normal Physical Examination General Exam: Positive: Alert, Cooperative Eye Exam: Positive: PERRLA ENT Exam: Positive: Atraumatic Neck Exam: Positive: Supple; Negative: JVD Chest Exam: Positive: Clear to auscultation Heart Exam: Positive: Rate Normal Telemetry: Positive: No significant arrhythmia Abdomen Exam: Positive: Normal bowel sounds Extremity Exam: Positive: Other (tenderness over left hip) Skin Exam: Positive: Nl turgor and temperature Neuro Exam: Positive: Cranial Nerves 3-12 NL Psych Exam: Positive: Mental status NL Vital Signs Vital Signs Date Time Temp Pulse Resp B/P (MAP) Pulse Ox O2 Delivery O2 Flow Rate FiO2 12/23/19 04:48 18 Room Air 12/23/19 02:54 63 185/90 97 Laboratory Data Labs 24H Laboratory Tests 2 12/23/19 04:09: Immature Granulocyte % (Auto) 0.5, Neutrophils (%) (Auto) 73.9H, Lymphocytes (%) (Auto) 15.4L, Monocytes (%) (Auto) 7.3H, Eosinophils (%) (Auto) 2.6, Basophils (%) (Auto) 0.3, Neutrophils # (Auto) 8.1, Lymphocytes # (Auto) 1.7, Monocytes # (Auto) 0.8, Eosinophils # (Auto) 0.3, Basophils # (Auto) 0.0, Nucleated Red Blood Cells % (auto) 0.0, Prothrombin Time 12.8, Prothromb Time International Ratio 0.94, Anion Gap 7L, Glomerular Filtration Rate 53.2, Calcium Level 10.1, Total Bilirubin 0.4, Direct Bilirubin 0.1, Aspartate Amino Transf (AST/SGOT) 17, Alanine Aminotransferase (ALT/SGPT) 20, Alkaline Phosphatase 137H, Total Creatine Kinase 53, Creatine Kinase MB 1.3, Creatine Kinase MB Relative Index 2.45, Troponin I < 0.02, Total Protein 7.0, Albumin 3.7, Albumin/Globulin Ratio 1.1L CBC/BMP Laboratory Tests 12/23/19 04:09 Assessment/Plan Patient is 79 years old female with past medical history of hypertension, diabetes diet controlled, neuropathy, diastolic CHF presented to the hospital with leg pain after mechanical fall. Patient stated that earlier today she developed mechanical fall due to slippage. In emergency room patient was found to have on x-ray Fracture of the left femoral neck with varus angulation and cephalad migration of the distal fragment. Problems (1) Hip fracture, left Status: Acute Problem Text: Pain management Consider orthopedic consult in the morning Nothing by mouth for now (2) Diabetes mellitus Status: Chronic Problem Text: Diabetes diet Insulin sliding scale (3) Hypertension Status: Chronic Problem Text: Continue home meds Plan / VTE VTE Prophylaxis Ordered?: Yes DEVENDRA CAMP DO Dec 23, 2019 05:25
[2019-12-23] MEDS ORDERED: FLON1SPR (05:28)
[2019-12-23] MEDS ORDERED: NITROGLYCERIN 0.4 MG SUBL TABLET SL PRN (05:30)
[2019-12-23] MEDS ORDERED: ACETAMINOPHEN TAB 650MG DOSE (2X325MG) PO PRN (05:30)
[2019-12-23] MEDS ORDERED: GLUCAGON INJ 1MG VIAL SC PRN (05:45)
[2019-12-23] MEDS ORDERED: GLUCOSE 4GM CHEW TABLET PO PRN (05:45)
[2019-12-23] MEDS ORDERED: DEXTROSE 50% 50 ML SYRINGE IV PRN (05:45)
[2019-12-23] MEDS: HumaLOG INSULIN (NovoLOG) PER UNIT SC SCH ×4 (06:00→18:42)
--- NOTE | 2019-12-23 07:47 | ECGEPIP ---
[facility] - ED Test Date: 2019-12-23 Pat Name: OLEKSANDR SETH Department: Room: [place] [address] Gender: Female Chief Crna: [facility] : 1940 Requested By: ENOCH Kilpatrick Order Number: [id number] Reading MD: Yash Jordan Measurements Intervals [place] Rate: 65 P: 62 NE: 136 QRS: -41 QRSD: 132 T: 26 QT: 411 QTc: 427 Interpretive Statements SINUS RHYTHM LEFT AXIS DEVIATION RIGHT BUNDLE BRANCH BLOCK, NEW COMPARED TO 08/04/15 Electronically Signed on 12-23-2019 7:46:53 EDT by Yash Jordan
--- NOTE | 2019-12-23 08:33 | REPVR ---
PROCEDURE INFORMATION: Exam: XR Left Knee Exam date and time: 12/23/2019 7:10 AM Age: 79 years old Clinical indication: Injury or trauma; Fall; Fracture, traumatic; Closed fracture; Left; Injury details: Hip films done earlier TECHNIQUE: Imaging protocol: XR Left knee. Views: 1 or 2 views. COMPARISON: CR Knee, complete 09/13/2017 1:21 PM FINDINGS: Bones/joints: Degenerative changes. Osteopenia. Soft tissues: Normal. Vasculature: Atherosclerotic disease. IMPRESSION: No acute findings. Electronically signed by: Yusuf Clements On 12/23/2019 08:32:55 AM
[2019-12-23] MEDS: CETIRIZINE (ZyrTEC) 10 MG TAB PO SCH (09:00)
[2019-12-23] MEDS: HEPARIN SOD (PORCINE) 5000UNITS/ML 1ML VIAL/SYRINGE SC SCH ×2 (09:00→20:11)
[2019-12-23] MEDS: SPIRONOLACTONE 12.5MG PER 1/2 TABLET PO SCH (09:00)
[2019-12-23] MEDS: ASPIRIN 81 MG ENTERIC TAB PO SCH (09:00)
--- NOTE | 2019-12-23 09:19 | IPNPDOC ---
Subjective Date Seen The patient was seen on 12/23/19. Subjective Chief Complaint/HPI Pt was seen at bedside this am. NAD, resting supine in the bed. States that she has 9/10 pain in the L hip and cannot shift any weight without having excruciating sharp pain. The pain is constant and sharp in nature. She states that the 2 doses of morphine she got in the ER helped at first but has now worn off and her pain is back. Otherwise, she denies CP, SOB, abdominal pain, fever, chills, n/v/d. ROS: All 12 points have been reviewed. See HPI PHYSICAL EXAM VS: SEE BELOW CONSTITUTIONAL: Denies fever, chills, nausea, vomiting HEENT: No rhinorrhea, headache, sore throat CARDIOVASCULAR: Denies chest pain. Denies chest tightness, palpitations. RESPIRATORY: Denies shortness of breath, cough, wheeze, sputum production GASTROINTESTINAL: Denies abdominal pain, constipation, diarrhea. GENITOURINARY: Denies dysuria. SKIN: Denies new rashes or lesions. MUSCULOSKELETAL: L hip pain 2/2 to fall and L femoral neck fracture NEUROLOGICAL: AAOx3, no focal neurological deficits. Denies changes in vision, balance, or sensation changes PSYCHIATRIC: Mood appropriate and no flat affect Objective Physical Examination General Exam: Positive: Alert, Cooperative Eye Exam: Positive: PERRLA ENT Exam: Positive: Atraumatic Neck Exam: Positive: Supple; Negative: JVD Chest Exam: Positive: Clear to auscultation Heart Exam: Positive: Rate Normal Telemetry: Positive: No significant arrhythmia Abdomen Exam: Positive: Normal bowel sounds Female Exam: Positive: Nl Ext Genitalia; Negative: Lesions, Discharge, Odor, Tenderness Extremity Exam: Positive: Other (tenderness over left hip) Skin Exam: Positive: Nl turgor and temperature Neuro Exam: Positive: Cranial Nerves 3-12 NL Psych Exam: Positive: Mental status NL Assessment /Plan Assessment This is a 79 y/o elderly female with pmhx significant for HTN, DM2, knee arthritis, admitted after she reports a mechanical fall where she tripped over her couch and fell on her L hip. She denies dizziness or syncope prior to falling and states that she had turned off all of the living room lights and was feeling her way up to the stairs when she tripped on the edge of her couch and landed on her L hip. XRay of hip in the ER shows a L femoral Neck fx with displacement after a mechanical fall. Shes being admitted and ortho is consulted for possible hemiarthroplasty. Plan/VTE VTE Prophylaxis Ordered?: Yes Plan #L femoral neck fx s/p mechanical fall - Varus angulation and cephalad migration - Current pain 12/02 - Pain control with morphine 2mg IV q4h - Ortho consulted (Dr. Bonner)- appreciate recommendations - CXR shows evidence of COPD with probably bullous change #HTN - Bp controlled 127/60 - Continue home meds #DM2 - BS 133 - Continue to monitor - Sliding scale with hypoglycemia protocol #Hx of TIAs - Continue home meds #CAD - Continue home meds ##Pt was seen by resident physician and attending Dr. Keith Adkins today. In the past 4 weeks, pt states that she has had no decline in status or chest pain. Baseline EKG was reviewed by resident and attending physician (Dr. Keith Adkins) today showing RBBB. No further intervention warranted at this time, pt is medical optimized and is at low risk for this low risk surgery. Continue with BB (Coreg) vivienne-operatively. DVT ppx: Heparin 5000 TID GI ppx: None Diet: NPO IVF: none Dispo: Ortho consult (Dr. Bonner). Possible surgery later this pm or tomorrow am. Pain control VS, I&O, 24H, Fishbone Vital Signs/I&O Vital Signs Date Time Temp Pulse Resp B/P (MAP) Pulse Ox O2 Delivery O2 Flow Rate FiO2 12/23/19 07:45 97.9 75 18 117/55 97 2.0 12/23/19 07:02 Room Air Laboratory Data 24H LABS Laboratory Tests 2 12/23/19 04:09: Immature Granulocyte % (Auto) 0.5, Neutrophils (%) (Auto) 73.9H, Lymphocytes (%) (Auto) 15.4L, Monocytes (%) (Auto) 7.3H, Eosinophils (%) (Auto) 2.6, Basophils (%) (Auto) 0.3, Neutrophils # (Auto) 8.1, Lymphocytes # (Auto) 1.7, Monocytes # (Auto) 0.8, Eosinophils # (Auto) 0.3, Basophils # (Auto) 0.0, Nucleated Red Blood Cells % (auto) 0.0, Prothrombin Time 12.8, Prothromb Time International Ratio 0.94, Anion Gap 7L, Glomerular Filtration Rate 53.2, Calcium Level 10.1, Total Bilirubin 0.4, Direct Bilirubin 0.1, Aspartate Amino Transf (AST/SGOT) 17, Alanine Aminotransferase (ALT/SGPT) 20, Alkaline Phosphatase 137H, Total Creatine Kinase 53, Creatine Kinase MB 1.3, Creatine Kinase MB Relative Index 2.45, Troponin I < 0.02, Total Protein 7.0, Albumin 3.7, Albumin/Globulin Ratio 1.1L CBC/BMP Laboratory Tests 12/23/19 04:09 GME ATTESTATION GME ATTESTATION My faculty preceptor for this patient encounter was physically present during the encounter and was fully available. All aspects of the patient interview, examination, medical decision making process, and medical care plan development were reviewed and approved by the faculty preceptor. The faculty preceptor is aware and concurs with the plan as stated in the body of this note and will attest to such by his/her cosignature. ATTENDING NOTE Patient was seen and examined by me personally with the residents and students. Agree with the above assessment and plan Janene Souza DO Dec 23, 2019 09:19 KEITH ADKINS MD Dec 30, 2019 09:33
[2019-12-23 10:00] VITALS: BP 161/75
[2019-12-23] MEDS: CARVedilol 12.5 MG TAB PO SCH ×2 (13:53→20:12)
[2019-12-23 14:00] VITALS: BP 126/71
[2019-12-23] MEDS: DULoxetine 20 MG CAP (CYMBALTA) PO SCH (14:24)
[2019-12-23] MEDS: GABAPENTIN 300 MG CAP PO SCH (20:11)
[2019-12-23 22:00] VITALS: BP 125/62
[2019-12-24] MEDS: HumaLOG INSULIN (NovoLOG) PER UNIT SC SCH ×4 (00:23→18:00)
[2019-12-24] MEDS: MORPHINE 2 MG/ML 1ML VIAL (J2270) IV PRN ×5 (03:14→16:19)
[2019-12-24 06:00] VITALS: BP 131/65
[2019-12-24] MEDS ORDERED: ceFAZolin SOD 2 GM in IV 1 EA IV ONE (07:00)
--- NOTE | 2019-12-24 07:23 | IPNPDOC ---
Subjective Date Seen The patient was seen on 12/24/19. Subjective Chief Complaint/HPI Pt was seen at bedside this am. NAD, resting supine in the bed. States that her pain is under control currently but still feels discomfort in her L hip. No other acute events overnight. Surgery Ortho is schedule for around 3pm today. Pt is aware of the time of surgery and denies any other acute issues. No CP, abdominal discomfort, fever, chills, n/v/d. ROS: All 12 points have been reviewed. See HPI PHYSICAL EXAM VS: SEE BELOW CONSTITUTIONAL: Denies fever, chills, nausea, vomiting HEENT: No rhinorrhea, headache, sore throat CARDIOVASCULAR: Denies chest pain. Denies chest tightness, palpitations. RESPIRATORY: Denies shortness of breath, cough, wheeze, sputum production GASTROINTESTINAL: Denies abdominal pain, constipation, diarrhea. GENITOURINARY: Denies dysuria. SKIN: Denies new rashes or lesions MUSCULOSKELETAL: L hip pain 2/2 to fall and L femoral neck fracture- pain is currently under control NEUROLOGICAL: AAOx3, no focal neurological deficits. Denies changes in vision, balance, or sensation changes PSYCHIATRIC: Mood appropriate and no flat affect Objective Physical Examination General Exam: Positive: Alert, Cooperative Eye Exam: Positive: PERRLA ENT Exam: Positive: Atraumatic Neck Exam: Positive: Supple; Negative: JVD Chest Exam: Positive: Clear to auscultation Heart Exam: Positive: Rate Normal Telemetry: Positive: No significant arrhythmia Abdomen Exam: Positive: Normal bowel sounds Female Exam: Positive: Nl Ext Genitalia; Negative: Lesions, Discharge, Odor, Tenderness Extremity Exam: Positive: Other (tenderness over left hip) Skin Exam: Positive: Nl turgor and temperature Neuro Exam: Positive: Cranial Nerves 3-12 NL Psych Exam: Positive: Mental status NL Assessment /Plan Assessment This is a 79 y/o elderly female with pmhx significant for HTN, DM2, knee art hritis, admitted after she reports a mechanical fall where she tripped over her couch and fell on her L hip. She denies dizziness or syncope prior to falling and states that she had turned off all of the living room lights and was feeling her way up to the stairs when she tripped on the edge of her couch and landed on her L hip. XRay of hip in the ER shows a L femoral Neck fx with displacement after a mechanical fall. Shes being admitted and ortho is consulted for possible hemiarthroplasty Plan/VTE VTE Prophylaxis Ordered?: Yes Plan #L femoral neck fx s/p mechanical fall -Varus angulation and cephalad migration -Current pain 06/01 -Pain control with morphine 2mg IV q4h -Ortho consulted (Dr. Bonner)- pending surgery this afternoon #HTN -Bp controlled 131/65 -Continue home meds #DM2 -Continue to monitor blood glucose carefully -Sliding scale with hypoglycemia protocol #Hx of TIAs -Continue home meds #CAD -Coreg decreased to 6.25mg PO BID ##Pt was seen by resident physician and attending Dr. Keith Adkins today. In the past 4 weeks, pt states that she has had no decline in status or chest pain. Baseline EKG was reviewed by resident and attending physician (Dr. Keith Adkins) today showing RBBB. No further intervention warranted at this time, pt is medical optimized and is at low risk for this low risk surgery. Continue with BB (Coreg) vivienne-operatively. DVT ppx: Heparin 5000 TID GI ppx: None Diet: NPO IVF: none Dispo: Pending Ortho surgery hemiarthroplasty per Dr. Bonner (Gen surgery) today. Pain control. Continue PT/OT. Pending vitD level and TSH lvl VS, I&O, 24H, Fishbone Vital Signs/I&O Vital Signs Date Time Temp Pulse Resp B/P (MAP) Pulse Ox O2 Delivery O2 Flow Rate FiO2 12/24/19 06:57 18 12/24/19 06:00 98.6 88 131/65 (87) 96 Nasal Cannula 2.0 I&O- Last 24 Hours up to 6 AM 12/24/19 06:00 Intake Total 50 ml Output Total 350 ml Balance -300 ml Laboratory Data 24H LABS Laboratory Tests 2 12/23/19 16:56: Bedside Glucose (Misc Panel) 129H 12/24/19 00:10: Bedside Glucose (Misc Panel) 125H 12/24/19 05:33: Bedside Glucose (Misc Panel) 121H 12/24/19 06:02: Coronavirus (COVID-19)(PCR) NEGATIVE GME ATTESTATION GME ATTESTATION My faculty preceptor for this patient encounter was physically present during the encounter and was fully available. All aspects of the patient interview, examination, medical decision making process, and medical care plan development were reviewed and approved by the faculty preceptor. The faculty preceptor is aware and concurs with the plan as stated in the body of this note and will attest to such by his/her cosignature. ATTENDING NOTE Patient was seen and examined by me personally with the residents and students. Agree with the above assessment and plan Janene Souza DO Dec 24, 2019 07:22 KEITH ADKINS MD Dec 30, 2019 09:35
[2019-12-24] MEDS ORDERED: FLUBLOK(EGG FREE)(QUAD)INFLUENZA VACC 0.5ML SYRINGE 18YRS & OLDER IM ONE (08:00)
[2019-12-24 08:38] LABS: THYROID STIMULATING HORMONE 0.688 uIU/ML (0.358-3.740)
[2019-12-24] MEDS: CARVedilol 12.5 MG TAB PO SCH (08:46)
[2019-12-24] MEDS: DULoxetine 20 MG CAP (CYMBALTA) PO SCH (08:46)
[2019-12-24] MEDS: SPIRONOLACTONE 12.5MG PER 1/2 TABLET PO SCH (08:46)
[2019-12-24] MEDS: ASPIRIN 81 MG ENTERIC TAB PO SCH (09:00)
[2019-12-24] MEDS: CETIRIZINE (ZyrTEC) 10 MG TAB PO SCH (09:00)
[2019-12-24] MEDS: HEPARIN SOD (PORCINE) 5000UNITS/ML 1ML VIAL/SYRINGE SC SCH (09:00)
[2019-12-24 10:50] LABS: TOTAL 25(OH) VITAMIN D 17.5 NG/ML (30.0-100.0)
[2019-12-24 14:00] VITALS: BP 100/67
[2019-12-24] MEDS ORDERED: EPINEPHrine INJ 1 MG/ML 1ML AMP As Ordered ONE (16:55)
[2019-12-24] MEDS ORDERED: ceFAZolin 1GM VIAL (J0690 PER 500MG) As Ordered ONE (16:55)
[2019-12-24] MEDS ORDERED: fentaNYL 100 MCG/2 ML INJECTION (J3010) As Ordered ONE (17:12)
[2019-12-24] MEDS ORDERED: MIDAZOLAM INJ 2MG/2ML VIAL (J2250 PER 1MG) As Ordered ONE (17:12)
[2019-12-24] MEDS ORDERED: propofoL 200 MG/20 ML VIAL As Ordered ONE (17:12)
[2019-12-24] MEDS ORDERED: LIDOCAINE 2% 100MG/5ML SDV (FOR ANES.) As Ordered ONE (17:12)
[2019-12-24] MEDS ORDERED: KETAMINE HCL 200 MG/20 ML VIAL As Ordered ONE (17:31)
[2019-12-24] MEDS ORDERED: ROCURONIUM BROMIDE 50 MG/5 ML VIAL As Ordered ONE (17:53)
[2019-12-24] MEDS ORDERED: BUPIVACAINE HCL 0.25% 30ML VIAL As Ordered ONE (18:08)
[2019-12-24] MEDS ORDERED: TRANEXAMIC ACID 100 MG/ML 10ML VIAL As Ordered ONE (18:16)
[2019-12-24] MEDS ORDERED: PHENYLephrine HCL 500 MCG/5 ML (100MCG/ML) SYRINGE (J2370) As Ordered ONE (18:21)
[2019-12-24] MEDS ORDERED: ePHEDrine SULFATE 25 MG/5 ML(5MG/ML) SYRINGE As Ordered ONE (18:21)
[2019-12-24] MEDS ORDERED: ONDANSETRON 4MG/2ML VIAL As Ordered ONE (18:31)
[2019-12-24] MEDS ORDERED: METOCLOPRAMIDE INJ 10MG/2ML VIAL (J2765 PER 1) As Ordered ONE (18:31)
[2019-12-24] MEDS ORDERED: NEOSTIGMINE 10MG/10ML VIAL (J2710 PER 0.5MG) As Ordered ONE (18:42)
[2019-12-24] MEDS ORDERED: GLYCOPYRROLATE INJ 0.2 MG/ML 2 ML VIAL As Ordered ONE (18:42)
[2019-12-24] MEDS ORDERED: LABETALOL 100MG/20ML VIAL As Ordered ONE (18:47)
[2019-12-24] MEDS ORDERED: LR 1,000 ML IV SCH (21:15)
[2019-12-24] MEDS: LR 1,000 ML IV SCH (21:15)
[2019-12-24] MEDS ORDERED: oxyCODONE 5MG TAB PO PRN (21:15)
[2019-12-24] MEDS ORDERED: fentaNYL 100 MCG/2 ML INJECTION (J3010) IV PRN (21:15)
[2019-12-24] MEDS ORDERED: ONDANSETRON 4MG/2ML VIAL IV PRN (21:15)
[2019-12-24] MEDS ORDERED: HYDROMORPHONE HCL 0.5 MG/ 0.5 ML SYRINGE (J1170 PER 1) IV PRN (21:15)
[2019-12-24 21:30] VITALS: BP 109/67
[2019-12-24 22:00] VITALS: BP 109/66
[2019-12-24 23:00] VITALS: BP 125/64
[2019-12-25] VITALS: BP 122/64
[2019-12-25] MEDS ORDERED: PERCOCET 5MG/325MG TAB PO PRN
[2019-12-25] MEDS: GABAPENTIN 300 MG CAP PO SCH ×2 (00:31→21:43)
[2019-12-25] MEDS: PERCOCET 5MG/325MG TAB PO PRN ×2 (00:33→07:46)
[2019-12-25] MEDS: CARVedilol 6.25 MG TAB PO SCH ×3 (00:33→21:44)
[2019-12-25] MEDS: HumaLOG INSULIN (NovoLOG) PER UNIT SC SCH ×4 (00:34→17:37)
[2019-12-25] MEDS: ceFAZolin SOD 2 GM in IV 1 EA IV SCH ×2 (00:35→09:11)
[2019-12-25 01:00] VITALS: BP 119/65
[2019-12-25 02:00] VITALS: BP 99/56
[2019-12-25 06:00] VITALS: BP 115/65
[2019-12-25] MEDS: LR 1,000 ML IV SCH ×3 (06:43→22:25)
[2019-12-25 08:25] LABS: APPEARANCE, URINE TURBID (CLEAR); BILIRUBIN, URINE AUTO NEGATIVE (NEGATIVE); BLOOD, URINE BLOOD NEGATIVE (NEGATIVE); COLOR, URINE AMBER (YELLOW); GLUCOSE, URINE (UA) AUTO 1+ mg/dL (NEGATIVE); KETONE, URINE AUTO NEGATIVE (NEGATIVE); LEUKOCYTE ESTERASE, URINE AUTO 3+ (NEGATIVE); NITRITE, URINE AUTO NEGATIVE (NEGATIVE); PROTEIN, URINE AUTO 2+ mg/dL (NEGATIVE); SPECIFIC GRAVITY URINE AUTO 1.034 (1.002-1.035); UROBILINOGEN, URINE AUTO 0.2 mg/dL (0.0-2.0)
[2019-12-25 08:35] LABS: BACTERIA, URINE AUTO NEGATIVE (NEGATIVE); MUCUS, URINE SMALL (NEGATIVE); RBC, URINE AUTO 119 /HPF (0-3); SQUAMOUS EPITHELIAL CELL UR AU 2 /HPF (0-6); WBC, URINE AUTO TNTC /HPF (0-3)
[2019-12-25] MEDS ORDERED: FLUBLOK(EGG FREE)(QUAD)INFLUENZA VACC 0.5ML SYRINGE 18YRS & OLDER IM ONE (09:00)
[2019-12-25] MEDS: MIRALAX *UNIT DOSE* 17GM PACKET PO SCH (09:00)
[2019-12-25] MEDS: CETIRIZINE (ZyrTEC) 10 MG TAB PO SCH (09:11)
[2019-12-25] MEDS: SPIRONOLACTONE 12.5MG PER 1/2 TABLET PO SCH (09:11)
[2019-12-25] MEDS: DULoxetine 20 MG CAP (CYMBALTA) PO SCH (09:11)
[2019-12-25] MEDS: MOM 30ML SUSPENSION UDC PO SCH (09:11)
[2019-12-25] MEDS ORDERED: traMADol 50 MG TAB PO PRN (10:00)
--- NOTE | 2019-12-25 10:27 | IPNPDOC ---
Text Note Date of Service The patient was seen on 12/25/19. NOTE Pt was seen at bedside this am. The patient is status post left femur neck repair. The patient was slightly sleepy this morning after [place], but otherwise complains of no other issues PHYSICAL EXAM CONSTITUTIONAL: Denies fever, chills, nausea, vomiting HEENT: No rhinorrhea, headache, sore throat CARDIOVASCULAR: Denies chest pain. Denies chest tightness, palpitations. RESPIRATORY: Denies shortness of breath, cough, wheeze, sputum production GASTROINTESTINAL: Denies abdominal pain, constipation, diarrhea. GENITOURINARY: Denies dysuria. SKIN: Denies new rashes or lesions MUSCULOSKELETAL: Left hip surgical dressing is present. The wound looks clear with mild ecchymosis around the surgical wound site NEUROLOGICAL: AAOx3, no focal neurological deficits. Denies changes in vision, balance, or sensation changes PSYCHIATRIC: Mood appropriate and no flat affect PHYSICAL EXAMINATION: General: The patient is sleepy but easily arousable Head and Neck Exam: Extraocular muscles intact. Pupils equally round and reactive to light. Mucous membranes are moist. Neck is supple. There is no jugular venous distention (JVD). Cardiovascular: S1 and S2, regular rate. Trace edema of the bilateral lower extremities. Respiratory: Clear auscultation bilaterally Abdomen: Soft. Positive bowel sounds. Nontender. No organomegaly. Genitourinary: Deferred Musculoskeletal: Clubbing of the fingernails, no cyanosis was noted. Left hip surgical site is clean and the wound looks healthy Central Nervous System (IRONWORKER MACHINE OPERATOR): No focal deficit. Power is 5/5 in all extremities. Assessment and plan This is a 79 y/o elderly female with pmhx significant for HTN, DM2, knee arthritis, admitted after she reports a mechanical fall where she tripped over her couch and fell on her L hip. She denies dizziness or syncope prior to falling and states that she had turned off all of the living room lights and was feeling her way up to the stairs when she tripped on the edge of her couch and landed on her L hip. XRay of hip in the ER shows a L femoral Neck fx with displacement after a mechanical fall.. She underwent hemiarthroplasty on 12/24/19 and has been started on Xarelto for DVT prophylaxis. . She is being evaluated by PT, OT and probably will require subacute rehabilitation placement. 1. L femoral neck fx s/p mechanical fall: Status post hemiarthroplasty on 12/24/19. Pain control with [place]. Activity as per Ortho. DVT prophylaxis as per Ortho and the patient has been started on Xarelto. 2. HTN . Bp controlled 131/65 , Continue home meds 3. DM2 . Continue to monitor blood glucose carefully . Sliding scale with hypoglycemia protocol . Continue to hold oral hypoglycemics 4. Hx of TIAs, Continue home meds with statins and aspirin 5. CAD . Coreg decreased to 6.25mg PO BID because of the soft blood pressure postop DVT prophylaxis until about PT, OT evaluated for possible subacute rehabilitation placement versus ARU VS,Fishbone, I+O VS, Fishbone, I+O Vital Signs Date Time Temp Pulse Resp B/P (MAP) Pulse Ox O2 Delivery O2 Flow Rate FiO2 12/25/19 09:11 106 115/65 12/25/19 08:16 18 12/25/19 07:50 1.0 12/25/19 06:00 98.0 90 Nasal Cannula I&O- Last 24 Hours up to 6 AM 12/25/19 06:00 Intake Total 2475 ml Output Total 950 ml Balance 1525 ml ROSAURA ADKINS MD Dec 25, 2019 10:27
[2019-12-25] MEDS: ACETAMINOPHEN 500 MG TAB PO SCH ×2 (14:00→22:00)
[2019-12-25] MEDS: RIVAROXABAN 10 MG TAB (XARELTO) PO SCH (18:38)
[2019-12-25 22:00] VITALS: BP 116/62
[2019-12-26 02:00] VITALS: BP 129/57
[2019-12-26] MEDS: ACETAMINOPHEN 500 MG TAB PO SCH ×3 (05:27→21:48)
[2019-12-26] MEDS: LR 1,000 ML IV SCH ×3 (05:28→21:48)
[2019-12-26 06:00] VITALS: BP 111/51
[2019-12-26] MEDS: HumaLOG INSULIN (NovoLOG) PER UNIT SC SCH ×5 (06:00→21:00)
[2019-12-26] MEDS: CETIRIZINE (ZyrTEC) 10 MG TAB PO SCH (08:56)
[2019-12-26] MEDS: MOM 30ML SUSPENSION UDC PO SCH (08:56)
[2019-12-26] MEDS: MIRALAX *UNIT DOSE* 17GM PACKET PO SCH (08:56)
[2019-12-26] MEDS: CARVedilol 6.25 MG TAB PO SCH ×2 (08:56→21:47)
[2019-12-26] MEDS: DULoxetine 20 MG CAP (CYMBALTA) PO SCH (08:56)
[2019-12-26] MEDS: SPIRONOLACTONE 12.5MG PER 1/2 TABLET PO SCH (08:56)
--- NOTE | 2019-12-26 09:28 | IPNPDOC ---
Date Seen The patient was seen on 12/26/19. Progress Note SUBJECTIVE: Patient was seen, examined, chart is interviewed. Per nursing, and orthopedic physician assistant head cashier yesterday. Patient was sedated due to pain medications. This morning she was arousable but still appears to be lethargic. She says that her pain is 3 out of 10 when she is not moving and worsens in to 7 out of 10 on a pain scale when she tries to move around the bed and try to get up and ambulate. She otherwise denies any new complaints. No fever, chills, shortness of breath, chest pain, pressure, tightness, cough, nausea, vomiting, epigastric pain, abdominal pain or constipation. No other issues per nursing overnight. Aside from the drowsiness during the day. OBJECTIVE: PHYSICAL EXAMINATION: VITAL signs see below General: Asleep but easily arousable, answered questions appropriately. Patient was oriented to herself. Head and Neck Exam: Face is symmetric. Tongue is midline Extraocular muscles intact. Pupils equally round and reactive to light. Mucous membranes are moist. Neck is supple. , No cervical lymphadenopathy. No thyromegaly There is no jugular venous distention (JVD). Cardiovascular: S1 and S2, regular rate. Nondisplaced point of maximal impulse Trace edema of the bilateral lower extremities., No carotid bruits. Respiratory: Air entry is equal bilaterally Clear auscultation bilaterally . No adventitious breath sounds. No wheezing, rales or rhonchi Abdomen: Soft. , Nondistended, no fluid wave. No abdominal bruit Positive bowel sounds 4 quadrants. Nontender. No organomegaly. Musculoskeletal: Clubbing of the fingernails, no cyanosis was noted. Left hip surgical site is clean, dry. . Skin pink Central Nervous System (FORMATION TESTING OPERATOR): No focal deficit. Power is 5/5 in all extremities. LABORATORY DATA: See below IMAGING studies: See chart ASSESSMENT: 79 y/o elderly female with HTN, DM2, knee arthritis, admitted after a mechanical fall. XRay of hip : L femoral Neck fx with displacement after a mechanical fall, s/p hemiarthroplasty on 12/24/19 and on Xarelto for DVT prophylaxis. 1. L femoral neck fx s/p mechanical fall: Status post hemiarthroplasty on 12/24/19. 2. HTN 3. DM2 4. Hx of TIAs 5. CAD 6. . Acute encephalopathy secondary to pain medications PLAN: Postop management per orthopedic surgery. Patient is currently on pain medications, bowel regimen, but has had adverse effects with increased sedation and lethargy with pain medications, which we are monitoring ARU and PT/OT have all been consulted. . She has been resumed on her home medications for hypertension and coronary artery disease, also on Xarelto for DVT prophylaxis, which would be adequate coverage for history TIAs, well. She currently is not exhibiting any acute ischemic symptoms and appeared to be stable on medical surgical floor. She is In a consistent carbohydrate diet 2 g sodium with insulin sliding scale for coverage and hypoglycemic protocol. Activity as tolerated. [place]'s. Her pain is controlled. She has been encouraged to alert her nurse if the pain is greater than 5 out of 10. Bowel regimen has been provided in case she becomes constipated to avoid fecal impaction. VS, I&O, 24H, Fishbone Vital Signs/I&O Vital Signs Date Time Temp Pulse Resp B/P (MAP) Pulse Ox O2 Delivery O2 Flow Rate FiO2 12/26/19 08:56 86 111/51 12/26/19 06:00 98.7 18 96 Nasal Cannula 1.0 I&O- Last 24 Hours up to 6 AM 12/26/19 06:00 Intake Total 840 ml Output Total 750 ml Balance 90 ml Laboratory Data 24H LABS Laboratory Tests 2 12/25/19 12:50: Bedside Glucose (Misc Panel) 168H 12/25/19 16:32: Bedside Glucose (Misc Panel) 156H 12/25/19 20:37: Bedside Glucose (Misc Panel) 138H 12/26/19 00:11: Bedside Glucose (Misc Panel) 130H 12/26/19 06:31: Bedside Glucose (Misc Panel) 138H TIAGO ANDREA MD Dec 26, 2019 09:24
[2019-12-26 14:00] VITALS: BP 118/58
[2019-12-26] MEDS ORDERED: GLUCOSE 4GM CHEW TABLET PO PRN (15:30)
[2019-12-26] MEDS ORDERED: DEXTROSE 50% 50 ML SYRINGE IV PRN (15:30)
[2019-12-26] MEDS ORDERED: GLUCAGON INJ 1MG VIAL SC PRN (15:30)
[2019-12-26] MEDS: RIVAROXABAN 10 MG TAB (XARELTO) PO SCH (17:54)
[2019-12-26] MEDS: GABAPENTIN 300 MG CAP PO SCH (21:47)
[2019-12-26 22:00] VITALS: BP 142/72
[2019-12-27] VITALS (12 sets, daily range): BP systolic 108–128; BP diastolic 54–84
[2019-12-27] MEDS: ACETAMINOPHEN 500 MG TAB PO SCH ×3 (06:36→20:29)
[2019-12-27 06:59] LABS: HEMATOCRIT 22.1 % (36.0-47.0); HEMOGLOBIN 7.3 g/dl (12.0-15.5); MEAN CORPUSCULAR HEMOGLOBIN 28.9 pg (27.0-33.0); MEAN CORPUSCULAR VOLUME 87.4 fl (80.0-96.0); PLATELET COUNT, AUTOMATED 158 10^3/uL (150-450); RED BLOOD COUNT 2.53 10^6/uL (4.00-5.40); WHITE BLOOD COUNT 10.2 10^3/uL (4.0-10.0)
[2019-12-27 07:10] LABS: BLOOD UREA NITROGEN 32 MG/DL (7-18); CALCIUM LEVEL 9.2 MG/DL (8.8-10.2); CARBON DIOXIDE LEVEL 27 MEQ/L (21-32); CHLORIDE LEVEL 103 MEQ/L (98-107); CREATININE FOR GFR 0.83 MG/DL (0.55-1.30); GLOMERULAR FILTRATION RATE > 60.0 (>39); GLUCOSE, FASTING 130 MG/DL (70-100); POTASSIUM SERUM 4.5 MEQ/L (3.5-5.1); SODIUM LEVEL 135 MEQ/L (136-145)
[2019-12-27 08:52] LABS: HEMATOCRIT 21.7 % (36.0-47.0); HEMOGLOBIN 7.2 g/dl (12.0-15.5)
[2019-12-27] MEDS: DULoxetine 20 MG CAP (CYMBALTA) PO SCH (08:57)
[2019-12-27] MEDS: SPIRONOLACTONE 12.5MG PER 1/2 TABLET PO SCH (08:57)
[2019-12-27] MEDS: CETIRIZINE (ZyrTEC) 10 MG TAB PO SCH (08:57)
[2019-12-27] MEDS: HumaLOG INSULIN (NovoLOG) PER UNIT SC SCH ×4 (08:57→21:00)
[2019-12-27] MEDS: MOM 30ML SUSPENSION UDC PO SCH (08:57)
[2019-12-27] MEDS: MIRALAX *UNIT DOSE* 17GM PACKET PO SCH (08:57)
[2019-12-27] MEDS: CARVedilol 6.25 MG TAB PO SCH ×2 (08:58→20:28)
--- NOTE | 2019-12-27 09:19 | REPVR ---
PROCEDURE INFORMATION: Exam: CT Abdomen And Pelvis Without Contrast Exam date and time: 12/27/2019 8:54 AM Age: 79 years old Clinical indication: Other: Hgb7 postop hip on xarelto R/O hematoma, retroperitoneal bleed? ; Prior surgery; Surgery date: 3-7 days post-operative; Surgery type: Left hip, TECHNIQUE: Imaging protocol: Computed tomography of the abdomen and pelvis without contrast. Radiation optimization: All CT scans at this facility use at least one of these dose optimization techniques: automated exposure control; mA and/or kV adjustment per patient size (includes targeted exams where dose is matched to clinical indication); or iterative reconstruction. COMPARISON: CT ABD PELVIS W/O FOL BY WIT 03/11/2018 4:34 PM FINDINGS: Lungs: Bilateral dependent and linear atelectasis. Heart: Cardiomegaly. Liver: Mild hepatomegaly. Gallbladder and bile ducts: Suggestion of layering biliary sludge. Pancreas: Normal. No ductal dilation. Spleen: Normal. No splenomegaly. Adrenals: Normal. No mass. Kidneys and ureters: Left renal cortical atrophy. Nonspecific bilateral perinephric fat stranding. Stomach and bowel: Diverticulosis of the colon. No evidence of acute diverticulitis. Appendix: No evidence of appendicitis. Intraperitoneal space: Unremarkable. No free air. No significant fluid collection. Vasculature: Atherosclerotic disease of the thoracoabdominal aorta. Lymph nodes: Mild raisa hepatis and gastrohepatic ligament adenopathy. Urinary bladder: Unremarkable as visualized. Reproductive: Status post hysterectomy. Bones/joints: Severe multilevel degenerative disease facet hypertrophy of the lumbar spine. Stenosis of the spinal canal and neural foramina multiple levels. Mild levoscoliosis. Status post left hip arthroplasty. Extensive beam hardening artifact from the hardware limits evaluation of adjacent organs. Soft tissues: There is a large lateral left thigh subcutaneous hematoma measuring at least 4.2 x 4.2 x 11.5 cm. Additional intramuscular blood and gas is noted in the left thigh musculature, likely postsurgical. IMPRESSION: Status post left hip arthroplasty. Extensive beam hardening artifact from the hardware limits evaluation of adjacent organs. There is a large lateral left thigh subcutaneous hematoma measuring at least 4.2 x 4.2 x 11.5 cm. Additional intramuscular blood and gas is noted in the left thigh musculature, likely postsurgical. Electronically signed by: Yusuf Clements On 12/27/2019 09:19:13 AM
--- NOTE | 2019-12-27 09:43 | IPNPDOC ---
Date Seen The patient was seen on 12/27/19. Progress Note SUBJECTIVE: Patient was seen and examined at the bedside chart has been reviewed. Patient's hemoglobin is 7.2. CT abdomen shows large hematoma along the left thigh. Denies been temporarily held until hematoma has stabilized. No fevers. . No complains of pain is much more awake and alert, eating her breakfast upright at 90 in bed OBJECTIVE: PHYSICAL EXAMINATION: VITAL signs see below General: Asleep but easily arousable, answered questions appropriately. Patient was oriented to herself. Head and Neck Exam: Face is symmetric. Tongue is midline Extraocular muscles intact. Pupils equally round and reactive to light. Mucous membranes are moist. Neck is supple. , No cervical lymphadenopathy. No thyromegaly There is no jugular venous distention (JVD). Cardiovascular: S1 and S2, regular rate. Nondisplaced point of maximal impulse Trace edema of the bilateral lower extremities., No carotid bruits. Respiratory: Air entry is equal bilaterally Clear auscultation bilaterally . No adventitious breath sounds. No wheezing, rales or rhonchi Abdomen: Soft. , Nondistended, no fluid wave. No abdominal bruit Positive bowel sounds 4 quadrants. Nontender. No organomegaly. Musculoskeletal: Clubbing of the fingernails, no cyanosis was noted. Left hip surgical site is clean, dry. Hematoma Central Nervous System (MARKING STITCHER): No focal deficit. Power is 5/5 in all extremities. LABORATORY DATA: See below IMAGING studies: See chart ASSESSMENT: 79 y/o elderly female with HTN, DM2, knee arthritis, admitted after a mechanical fall. XRay of hip : L femoral Neck fx with displacement after a mechanical fall, s/p hemiarthroplasty on 12/24/19 and on Xarelto for DVT prophylaxis. 1. L femoral neck fx s/p mechanical fall: Status post hemiarthroplasty on 12/24/19, Complicated by hematoma and acute blood loss. Hemoglobin of 7.2 2. HTN 3. DM2 4. Hx of TIAs 5. CAD 6. . Acute encephalopathy secondary to pain medications , resolved 7. Left thigh hematoma secondary to acute blood blood loss in the setting Xarelto for DVT prophylaxis, status post left femoral neck hemiarthroplasty PLAN: Due to significant anemia with hemoglobin of 7.2. Patient only given 2 units RBC transfusion and Xarelto has been held temporarily. After the hematoma has stabilized. We'll resume Xarelto for now. DVT prophylaxis with compression stocking, which still a risk of DVT. Patient is continued on all her home medication. She is doing better with her encephalopathy which is now resolved. Pain is tolerable, did not want any changes in her pain medications. PT, OT evaluation. Monitor hemoglobin after blood transfusion VS, I&O, 24H, Fishbone Vital Signs/I&O Vital Signs Date Time Temp Pulse Resp B/P (MAP) Pulse Ox O2 Delivery O2 Flow Rate FiO2 12/27/19 08:58 80 114/56 12/27/19 06:00 98.4 18 93 Room Air 12/27/19 00:52 1.0 I&O- Last 24 Hours up to 6 AM 12/27/19 06:00 Intake Total 2750 ml Output Total 1825 ml Balance 925 ml Laboratory Data 24H LABS Laboratory Tests 2 12/26/19 11:26: Bedside Glucose (Misc Panel) 125H 12/26/19 16:48: Bedside Glucose (Misc Panel) 129H 12/26/19 19:59: Bedside Glucose (Misc Panel) 132H 12/27/19 06:23: Nucleated Red Blood Cells % (auto) 0.0, Anion Gap 5L, Glomerular Filtration Rate > 60.0, Calcium Level 9.2 12/27/19 06:28: Bedside Glucose (Misc Panel) 129H 12/27/19 08:39: Reticulocyte # (auto) 55.0, Differential Slide Review Report, Peripheral Blood Smear Path Consult PERIPHERAL SMEAR, Percent Reticulocyte Count 2.2H, Reticulocyte Hemoglobin Equivalent 28.8 CBC/BMP Laboratory Tests 12/27/19 06:23 12/27/19 08:39 TIAGO ANDREA MD Dec 27, 2019 09:43
[2019-12-27 10:28] LABS: FERRITIN 312 NG/ML (8-252); IRON (FE) 14 UG/DL (50-170); PERCENT SATURATION 9.5 % (13.2-45.0); TOTAL IRON BINDING CAPACITY 148 UG/DL (250-450)
--- NOTE | 2019-12-27 13:40 | CR ---
DATE OF CONSULTATION: 12/23/2019 INDICATION: Left hip fracture. HISTORY OF PRESENT ILLNESS: Antoinette Neff is a 79-year-old female, who sustained a mechanical fall and landed on her left side. She has, I believe, preexisting right knee arthritis and her leg was painful and gave out on her. So, she is reporting severe pain in left hip and was unable to bear weight. X- rays in the Emergency Room revealed a displaced femoral neck fracture on the left side. She is denying numbness or tingling in her foot. For the patient's full past medical history, past surgical history, medications, allergies, social history and review of systems; please see the admitting H and P from the hospitalist. Patient reports she usually has good balance, occasionally uses assistive devices. PHYSICAL EXAMINATION: Reveals an elderly female in no distress. She is alert and oriented x3. Neurologic: Appropriate mood and affect. Cardiovascular: 2+ DP pulse. Pulmonary: Non-labored breathing. Abdomen: Non-distended. Skin: At the lateral aspect of the hip is intact without open lesions. Musculoskeletal: Patient's left leg is shortened when externally rotated. She fires EHL and FHL. She can plantar and dorsiflex her ankle. Sensation to light touch is grossly intact on the foot. She has mild tenderness over the medial tibial plateau, but there is no swelling. There is no joint effusion. Logroll deferred due to known displaced femoral neck fracture. IMAGING STUDIES: X-rays of the hip and femur were available for my review; they reveal Garden 3 versus 4 displaced femoral neck fracture. ASSESSMENT AND PLAN: Antoinette has a displaced left femoral neck fracture. This requires hemiarthroplasty. Patient is going to be admitted to the hospitalist service and medically optimized. Once she is cleared for surgery, orthopedic team will proceed with hemiarthroplasty when the OR is available. TANI
--- NOTE | 2019-12-27 13:44 | IPN ---
DATE: 12/24/2019 CHIEF COMPLAINT: Left femoral neck fracture. HISTORY OF PRESENT ILLNESS: A 79-year-old female had a mechanical fall at home. No head injury or loss of consciousness. She is unable to ambulate. She was consulted to me by Dr. Knapp, the orthopedic surgeon who saw her initially. She was admitted to the hospital while he was the physician superintendent transmission the morning of December 22. For past medical history, medications, drug allergies, and surgical history, please see the hospitalist note, who will clear the patient for surgery. SOCIAL HISTORY: She lives at home with her , Magdi. She lives in a 2- story house. She is a nonsmoker. PHYSICAL EXAMINATION: This is a well-appearing 79-year-old female. She is a little bit slow to respond "due to the morphine;" however, she responds appropriately. She is alert and oriented. I spoke to her , Magdi, on the phone as well during this visit. She can wiggle her toes, dorsiflex and plantarflex the feet. Both feet are warm and well perfused. There is no pain down at the knee or ankle. Thigh compartments soft. Left hip marked. No pain elsewhere. Radiographs were reviewed of the left hip. This shows displaced femoral neck fracture. ASSESSMENT AND PLAN: A 79-year-old female with displaced left femoral neck fracture. She had no distant hip pain. I spoke with her , who was on the phone, Magdi. We discussed the pros, cons, risks, benefits of nonsurgical management versus surgery, which would be left hip hemiarthroplasty. She wished to go ahead. Specific surgical risks include, but are not limited to, infection, pain, stiffness, weakness, damage to surrounding structures, neurovascular injury, fracture, instability, problems with the component, as well as anesthetic complications, blood clots, , and other risks. She wished to go ahead and signed the consent for surgery. We marked the left hip. We will keep her fasting hopefully for surgery today later in the day. In addition, she signed the consent form for possible need for blood products. She had no further questions. She will be on bedrest pending surgery. TANI
[2019-12-27 16:51] LABS: HEMATOCRIT 28.2 % (36.0-47.0); HEMOGLOBIN 9.5 g/dl (12.0-15.5)
[2019-12-27 17:21] LABS: ALBUMIN 2.3 GM/DL (3.2-5.2); BILIRUBIN,DIRECT 0.5 MG/DL (0.0-0.2); BILIRUBIN,TOTAL 1.4 MG/DL (0.2-1.0); TOTAL PROTEIN 5.5 GM/DL (6.4-8.2)
[2019-12-27] MEDS ORDERED: FUROSEMIDE 20MG/2ML VIAL (J1940) IV ONE (17:30)
--- NOTE | 2019-12-27 17:56 | REPVR ---
PROCEDURE INFORMATION: Exam: CT Head Without Contrast Exam date and time: 12/27/2019 5:28 PM Age: 79 years old Clinical indication: Pain; Other: AMS on noac R/O ich TECHNIQUE: Imaging protocol: Computed tomography of the head without contrast. Radiation optimization: All CT scans at this facility use at least one of these dose optimization techniques: automated exposure control; mA and/or kV adjustment per patient size (includes targeted exams where dose is matched to clinical indication); or iterative reconstruction. COMPARISON: No relevant prior studies available. FINDINGS: Brain: There is moderate age related parenchymal volume loss. White matter changes are demonstrated in the subcortical, centrum semiovale and periventricular white matter consistent with age related small vessel white matter angiopathic gliosis. Cerebral ventricles: The degree of ventricular dilatation is normal for age and/or degree of atrophy present. Bones/joints: Unremarkable. No acute fracture. Paranasal sinuses: Inflammatory changes in the left ethmoid sinuses. Mild inflammatory changes in the left sphenoid sinus. Mastoid air cells: Visualized mastoid air cells are well aerated. Soft tissues: Unremarkable. IMPRESSION: 1. There is moderate age related parenchymal volume loss. White matter changes are demonstrated in the subcortical, centrum semiovale and periventricular white matter consistent with age related small vessel white matter angiopathic gliosis. 2. The degree of ventricular dilatation is normal for age and/or degree of atrophy present. 3. No acute intracranial findings. Electronically signed by: David Kaur On 12/27/2019 17:55:05 PM
[2019-12-27] MEDS: GABAPENTIN 300 MG CAP PO SCH (20:27)
[2019-12-28] MEDS: ACETAMINOPHEN 500 MG TAB PO SCH ×3 (05:38→22:18)
[2019-12-28 06:00] VITALS: BP 126/60
[2019-12-28 08:21] LABS: HEMATOCRIT 28.7 % (36.0-47.0); HEMOGLOBIN 9.6 g/dl (12.0-15.5); MEAN CORPUSCULAR HEMOGLOBIN 28.8 pg (27.0-33.0); MEAN CORPUSCULAR HGB CONC 33.4 g/dl (32.0-36.5); MEAN CORPUSCULAR VOLUME 86.2 fl (80.0-96.0); PLATELET COUNT, AUTOMATED 195 10^3/uL (150-450); RED BLOOD COUNT 3.33 10^6/uL (4.00-5.40); WHITE BLOOD COUNT 10.6 10^3/uL (4.0-10.0)
[2019-12-28] MEDS: HumaLOG INSULIN (NovoLOG) PER UNIT SC SCH ×4 (08:36→21:00)
[2019-12-28] MEDS: MIRALAX *UNIT DOSE* 17GM PACKET PO SCH (08:36)
[2019-12-28] MEDS: MOM 30ML SUSPENSION UDC PO SCH (08:37)
[2019-12-28] MEDS: SPIRONOLACTONE 12.5MG PER 1/2 TABLET PO SCH (08:38)
[2019-12-28] MEDS: DULoxetine 20 MG CAP (CYMBALTA) PO SCH (08:39)
[2019-12-28] MEDS: CETIRIZINE (ZyrTEC) 10 MG TAB PO SCH (08:39)
[2019-12-28] MEDS: CARVedilol 6.25 MG TAB PO SCH ×2 (08:40→22:17)
--- NOTE | 2019-12-28 11:43 | IPNPDOC ---
Date Seen The patient was seen on 12/28/19. Progress Note SUBJECTIVE: Patient was seen and examined at the bedside chart is interviewed per nursing. Patient's mentation is improved and back to baseline. She did receive 2 units RBC transfusion yesterday due to significant hematoma in the left lateral thigh with no complaints of chest pain, pressure, tightness, shortness of breath, palpitations, lightheadedness or dizziness. Patient says her pain is still out of 10, wanting any pain medications this morning. She otherwise denies any upper or lower GI bleed. No hematemesis, coffee-ground emesis, bright red blood per rectum, melena, or black tarry stools due to confusion yesterday and previously been on throughout the patient was evaluated with CT of the head which showed no acute intracranial hemorrhage. OBJECTIVE: PHYSICAL EXAMINATION: VITAL SIGNS: SEE BELOW Gen.: Patient is less sedated less drowsy awake, alert, oriented, able to converse. No conversational dyspnea. Dry mucous membranes. No JVD, thyromegaly. HEENT: Anicteric, no jaundice. Pupils round and reactive. Extraocular muscles intact. Face is symmetric. Tongue is midline. No JVD, no thyromegaly. LUNGS: AIR ENTRY IS EQUAL BILATERALLY. NO WHEEZING, RALES OR RHONCHI. CLEAR TO AUSCULTATION. HEART: S1, S2 regular rate rhythm, no murmurs, sepsis, or gallops. ABDOMEN: POSITIVE BOWEL SOUNDS, SOFT, NONTENDER, NONDISTENDED. NO HEPATOSPLENOMEGALY. EXTREMITY: Postop left hip, left lateral thigh hematoma, tender. Laboratory data: See below IMAGING STUDIES: PROCEDURE INFORMATION: Exam: CT Abdomen And Pelvis Without Contrast Exam date and time: 12/27/2019 8:54 AM Age: 79 years old Clinical indication: Other: Hgb7 postop hip on xarelto R/O hematoma, retroperitoneal bleed? ; Prior surgery; Surgery date: 3-7 days post-operative; Surgery type: Left hip, TECHNIQUE: Imaging protocol: Computed tomography of the abdomen and pelvis without contrast. Radiation optimization: All CT scans at this facility use at least one of these dose optimization techniques: automated exposure control; mA and/or kV adjustment per patient size (includes targeted exams where dose is matched to clinical indication); or iterative reconstruction. COMPARISON: CT ABD PELVIS W/O FOL BY MARK 03/11/2018 4:34 PM FINDINGS: Lungs: Bilateral dependent and linear atelectasis. Heart: Cardiomegaly. Liver: Mild hepatomegaly. Gallbladder and bile ducts: Suggestion of layering biliary sludge. Pancreas: Normal. No ductal dilation. Spleen: Normal. No splenomegaly. Adrenals: Normal. No mass. Kidneys and ureters: Left renal cortical atrophy. Nonspecific bilateral perinephric fat stranding. Stomach and bowel: Diverticulosis of the colon. No evidence of acute diverticulitis. Appendix: No evidence of appendicitis. Intraperitoneal space: Unremarkable. No free air. No significant fluid collection. Vasculature: Atherosclerotic disease of the thoracoabdominal aorta. Lymph nodes: Mild raisa hepatis and gastrohepatic ligament adenopathy. Urinary bladder: Unremarkable as visualized. Reproductive: Status post hysterectomy. Bones/joints: Severe multilevel degenerative disease facet hypertrophy of the lumbar spine. Stenosis of the spinal canal and neural foramina multiple levels. Mild levoscoliosis. Status post left hip arthroplasty. Extensive beam hardening artifact from the hardware limits evaluation of adjacent organs. Soft tissues: There is a large lateral left thigh subcutaneous hematoma measuring at least 4.2 x 4.2 x 11.5 cm. Additional intramuscular blood and gas is noted in the left thigh musculature, likely postsurgical. IMPRESSION: Status post left hip arthroplasty. Extensive beam hardening artifact from the hardware limits evaluation of adjacent organs. There is a large lateral left thigh subcutaneous hematoma measuring at least 4.2 x 4.2 x 11.5 cm. Additional intramuscular blood and gas is noted in the left thigh musculature, likely postsurgical. Electronically signed by: Yusuf Clements On 12/27/2019 09:19:13 AM PROCEDURE INFORMATION: Exam: CT Head Without Contrast Exam date and time: 12/27/2019 5:28 PM Age: 79 years old Clinical indication: Pain; Other: AMS on noac R/O ich TECHNIQUE: Imaging protocol: Computed tomography of the head without contrast. Radiation optimization: All CT scans at this facility use at least one of these dose optimization techniques: automated exposure control; mA and/or kV adjustment per patient size (includes targeted exams where dose is matched to clinical indication); or iterative reconstruction. COMPARISON: No relevant prior studies available. FINDINGS: Brain: There is moderate age related parenchymal volume loss. White matter changes are demonstrated in the subcortical, centrum semiovale and periventricular white matter consistent with age related small vessel white matter angiopathic gliosis. Cerebral ventricles: The degree of ventricular dilatation is normal for age and/or degree of atrophy present. Bones/joints: Unremarkable. No acute fracture. Paranasal sinuses: Inflammatory changes in the left ethmoid sinuses. Mild inflammatory changes in the left sphenoid sinus. Mastoid air cells: Visualized mastoid air cells are well aerated. Soft tissues: Unremarkable. IMPRESSION: 1. There is moderate age related parenchymal volume loss. White matter changes are demonstrated in the subcortical, centrum semiovale and periventricular white matter consistent with age related small vessel white matter angiopathic gliosis. 2. The degree of ventricular dilatation is normal for age and/or degree of atrophy present. 3. No acute intracranial findings. Electronically signed by: David Kaur On 12/27/2019 17:55:05 PM ASSESSMENT: 79 y/o elderly female with HTN, DM2, knee arthritis, admitted after a mechanical fall. XRay of hip : L femoral Neck fx with displacement after a mechanical fall, s/p hemiarthroplasty on 12/24/19 1. L femoral neck fx s/p mechanical fall: Status post hemiarthroplasty on 12/24/19. 2. HTN 3. DM2 4. Hx of TIAs 5. CAD 6. Acute encephalopathy secondary to pain medications 7. Left lateral thigh hematoma secondary to Xarelto 8. Acute blood loss anemia requiring 2 units of RBC transfusion due to hematoma from Xarelto PLAN: Postop period was complicated by a hematoma that formed in the left lateral thigh patient Xarelto had been held temporarily until the hematoma has stabilized. She has required 2 units RBC transfusion and currently off anticoagulation for DVT prophylaxis post hemiarthroplasty with increased risk of DVT. Patient Xarelto may be resumed today if hemoglobin remains stable and hematoma does not expand further. Orthopedic surgery for postoperative management, physical therapy and air U have all been consulted. Due to confusion, CT of the head yesterday was done to rule out intracranial hemorrhage which was negative. VS, I&O, 24H, Fishbone Vital Signs/I&O Vital Signs Date Time Temp Pulse Resp B/P (MAP) Pulse Ox O2 Delivery O2 Flow Rate FiO2 12/28/19 08:40 70 126/60 12/28/19 06:00 97.1 18 92 Room Air 12/27/19 12:18 94 12/27/19 00:52 1.0 I&O- Last 24 Hours up to 6 AM 12/28/19 05:59 Intake Total 3500 ml Output Total 2625 ml Balance 875 ml Laboratory Data 24H LABS Laboratory Tests 2 12/27/19 16:16: Bedside Glucose (Misc Panel) 133H 12/27/19 16:37: Total Bilirubin 1.4H, Direct Bilirubin 0.5H, Aspartate Amino Transf (AST/SGOT) 29, Alanine Aminotransferase (ALT/SGPT) 17, Alkaline Phosphatase 204H, Total Protein 5.5L, Albumin 2.3L, Albumin/Globulin Ratio 0.7L 12/27/19 17:12: Ammonia 34H 12/27/19 20:25: Bedside Glucose (Misc Panel) 154H 12/28/19 05:36: Bedside Glucose (Misc Panel) 136H 12/28/19 07:50: Nucleated Red Blood Cells % (auto) 0.0 CBC/BMP Laboratory Tests 12/27/19 16:37 12/28/19 07:50 TIAGO ANDREA MD Dec 28, 2019 11:37
[2019-12-28 14:00] VITALS: BP 145/73
[2019-12-28] MEDS: RIVAROXABAN 10 MG TAB (XARELTO) PO SCH (17:45)
[2019-12-28 22:00] VITALS: BP 142/72
[2019-12-28] MEDS: GABAPENTIN 300 MG CAP PO SCH (22:18)
[2019-12-29] MEDS: ACETAMINOPHEN 500 MG TAB PO SCH ×3 (05:59→21:27)
[2019-12-29 06:00] VITALS: BP 140/75
[2019-12-29 06:31] LABS: HEMATOCRIT 29.3 % (36.0-47.0); HEMOGLOBIN 9.7 g/dl (12.0-15.5); MEAN CORPUSCULAR HEMOGLOBIN 28.5 pg (27.0-33.0); MEAN CORPUSCULAR HGB CONC 33.1 g/dl (32.0-36.5); MEAN CORPUSCULAR VOLUME 86.2 fl (80.0-96.0); PLATELET COUNT, AUTOMATED 239 10^3/uL (150-450); WHITE BLOOD COUNT 10.5 10^3/uL (4.0-10.0)
[2019-12-29] MEDS: MIRALAX *UNIT DOSE* 17GM PACKET PO SCH (07:47)
[2019-12-29] MEDS: DULoxetine 20 MG CAP (CYMBALTA) PO SCH (07:48)
[2019-12-29] MEDS: MOM 30ML SUSPENSION UDC PO SCH (07:48)
[2019-12-29] MEDS: HumaLOG INSULIN (NovoLOG) PER UNIT SC SCH ×4 (07:48→21:00)
[2019-12-29] MEDS: SPIRONOLACTONE 12.5MG PER 1/2 TABLET PO SCH (07:48)
[2019-12-29] MEDS: CARVedilol 6.25 MG TAB PO SCH ×2 (07:49→21:26)
[2019-12-29] MEDS: CETIRIZINE (ZyrTEC) 10 MG TAB PO SCH (07:49)
[2019-12-29 14:00] VITALS: BP 148/74
[2019-12-29] MEDS: RIVAROXABAN 10 MG TAB (XARELTO) PO SCH (17:18)
[2019-12-29] MEDS ORDERED: RIVAROXABAN 10 MG TAB (XARELTO) PO SCH (18:00)
--- NOTE | 2019-12-29 20:37 | IPNPDOC ---
Subjective Date Seen The patient was seen on 12/29/19. Subjective Chief Complaint/HPI Mrs. Neff is a 79 year old female here with leg pain after mechanical fall found to have left femoral neck fracture s/p hemiarthroplasty on 12/24/2019. This morning, she was having abdominal pain from constipation. Otherwise denies fever/chills, chest pain, dyspnea, or dysuria. Constitutional: Denies: Chills, Fever Pulmonary: Denies: Dyspnea Cardiovascular: Denies: Chest Pain Gastrointestinal: Reports: Constipation; Denies: Abdominal Pain Genitourinary: Denies: Dysuria Objective Physical Examination General Exam: Positive: Alert, Cooperative Eye Exam: Positive: EOMI; Negative: Sclera icteric ENT Exam: Positive: Atraumatic Neck Exam: Positive: Supple; Negative: JVD Chest Exam: Positive: Clear to auscultation Heart Exam: Positive: Rate Normal Abdomen Exam: Positive: Normal bowel sounds Extremity Exam: Positive: Other (tenderness over left hip) Skin Exam: Positive: Nl turgor and temperature Neuro Exam: Positive: Cranial Nerves 3-12 NL Psych Exam: Positive: Mental status NL Assessment /Plan Assessment Mrs. Neff is a 79 year old female here with leg pain after mechanical fall found to have left femoral neck fracture s/p hemiarthroplasty on 12/24/2019. She had required 2 units of pRBC on 12/27/2019 and has responded appropriately. Hemoglobin stable and has restarted Xarelto. Otherwise pending placement Plan/VTE VTE Prophylaxis Ordered?: Yes Plan 1. L femoral neck fx s/p mechanical fall -Status post hemiarthroplasty on 12/24/19. -Pending placement 2. Acute anemia requiring transfusion -Maybe secondary to left lateral thigh hematoma 2/2 Xarelto -Resolved. Resumed Xarelto 3. DM -Insulin SS 4. HTN -continue home medication 5. CAD -Continue Coreg, aspirin, statin 6. History of TIA -Continue aspirin and statin 7. Constipation -Resolved 8. DVT ppx -On Xarelto Dispo: Pending placement VS, I&O, 24H, Fishbone Vital Signs/I&O Vital Signs Date Time Temp Pulse Resp B/P (MAP) Pulse Ox O2 Delivery O2 Flow Rate FiO2 12/29/19 14:00 97.2 100 18 148/74 (98) 100 Room Air 12/27/19 12:18 94 10/4/20 00:52 1.0 I&O- Last 24 Hours up to 6 AM 12/29/19 06:00 Intake Total 900 ml Output Total 1675 ml Balance -775 ml Laboratory Data 24H LABS Laboratory Tests 2 12/28/19 20:57: Bedside Glucose (Misc Panel) 119H 12/29/19 05:49: Bedside Glucose (Misc Panel) 123H 12/29/19 05:50: Nucleated Red Blood Cells % (auto) 0.0 CBC/BMP Laboratory Tests 12/29/19 05:50 BREONNA GAMBOA DO Dec 29, 2019 20:37
[2019-12-29] MEDS: GABAPENTIN 300 MG CAP PO SCH (21:27)
[2019-12-29 22:00] VITALS: BP 135/65
[2019-12-30 06:00] VITALS: BP 133/68
[2019-12-30] MEDS: ACETAMINOPHEN 500 MG TAB PO SCH ×3 (06:03→22:23)
[2019-12-30 06:11] LABS: HEMATOCRIT 32.3 % (36.0-47.0); HEMOGLOBIN 10.9 g/dl (12.0-15.5); MEAN CORPUSCULAR HEMOGLOBIN 29.2 pg (27.0-33.0); MEAN CORPUSCULAR HGB CONC 33.7 g/dl (32.0-36.5); MEAN CORPUSCULAR VOLUME 86.6 fl (80.0-96.0); PLATELET COUNT, AUTOMATED 292 10^3/uL (150-450); RED BLOOD COUNT 3.73 10^6/uL (4.00-5.40); WHITE BLOOD COUNT 10.8 10^3/uL (4.0-10.0)
[2019-12-30 06:33] LABS: BLOOD UREA NITROGEN 20 MG/DL (7-18); CALCIUM LEVEL 9.1 MG/DL (8.8-10.2); CARBON DIOXIDE LEVEL 24 MEQ/L (21-32); CHLORIDE LEVEL 100 MEQ/L (98-107); CREATININE FOR GFR 0.74 MG/DL (0.55-1.30); GLOMERULAR FILTRATION RATE > 60.0 (>39); GLUCOSE, FASTING 129 MG/DL (70-100); POTASSIUM SERUM 4.6 MEQ/L (3.5-5.1); SODIUM LEVEL 133 MEQ/L (136-145)
[2019-12-30 08:35] VITALS: BP 131/68
[2019-12-30] MEDS: HumaLOG INSULIN (NovoLOG) PER UNIT SC SCH ×4 (08:39→21:00)
[2019-12-30] MEDS: CETIRIZINE (ZyrTEC) 10 MG TAB PO SCH (08:40)
[2019-12-30] MEDS: SPIRONOLACTONE 12.5MG PER 1/2 TABLET PO SCH (08:40)
[2019-12-30] MEDS: DULoxetine 20 MG CAP (CYMBALTA) PO SCH (08:40)
[2019-12-30] MEDS: CARVedilol 6.25 MG TAB PO SCH ×2 (08:41→22:24)
[2019-12-30] MEDS: TAMSULOSIN 0.4 MG CAP PO SCH (10:59)
--- NOTE | 2019-12-30 13:09 | IPNPDOC ---
Subjective Date Seen The patient was seen on 12/30/19. Subjective Chief Complaint/HPI Mrs. Neff is a 79 year old female here with leg pain after mechanical fall found to have left femoral neck fracture s/p hemiarthroplasty on 12/24/2019. Yesterday she had 4 bowel movements and today, she had two more. Denies fever/chills, chest pain, dyspnea, or dysuria. She has abdominal pain associated with bowel movements. She still has the farr catheter in place. Will try Flomax. Constitutional: Denies: Chills, Fever Pulmonary: Denies: Dyspnea Cardiovascular: Denies: Chest Pain Gastrointestinal: Reports: Abdominal Pain (Associated with BM) Genitourinary: Denies: Dysuria Objective Physical Examination General Exam: Positive: Alert, Cooperative Eye Exam: Positive: PERRLA ENT Exam: Positive: Atraumatic Neck Exam: Positive: Supple Chest Exam: Positive: Clear to auscultation Heart Exam: Positive: Rate Normal Abdomen Exam: Positive: Normal bowel sounds Extremity Exam: Positive: Other (tenderness over left hip) Skin Exam: Positive: Nl turgor and temperature Neuro Exam: Positive: Cranial Nerves 3-12 NL Psych Exam: Positive: Mental status NL Assessment /Plan Assessment Mrs. Neff is a 79 year old female here with leg pain after mechanical fall found to have left femoral neck fracture s/p hemiarthroplasty on 12/24/2019. She had required 2 units of pRBC on 12/27/2019 and has responded appropriately. Hemoglobin stable and has restarted Xarelto. Otherwise pending placement Plan/VTE VTE Prophylaxis Ordered?: Yes Plan 1. L femoral neck fx s/p mechanical fall -Status post hemiarthroplasty on 12/24/19. -Pending placement 2. Acute anemia requiring transfusion -Maybe secondary to left lateral thigh hematoma 2/2 Xarelto -Resolved. Resumed Xarelto 3. DM -Insulin SS 4. HTN -continue home medication 5. CAD -Continue Coreg, aspirin, statin 6. History of TIA -Continue aspirin and statin 7. Constipation -Resolved 8. DVT ppx -On Xarelto Dispo: Pending placement VS, I&O, 24H, Fishbone Vital Signs/I&O Vital Signs Date Time Temp Pulse Resp B/P (MAP) Pulse Ox O2 Delivery O2 Flow Rate FiO2 12/30/19 08:41 77 131/68 12/30/19 06:00 97.9 18 95 Room Air 12/27/19 12:18 94 12/27/19 00:52 1.0 I&O- Last 24 Hours up to 6 AM 12/30/19 06:00 Intake Total 1300 ml Output Total 1500 ml Balance -200 ml Laboratory Data 24H LABS Laboratory Tests 2 12/29/19 20:08: Bedside Glucose (Misc Panel) 153H 12/30/19 05:44: Anion Gap 9, Glomerular Filtration Rate > 60.0, Calcium Level 9.1 12/30/19 05:45: Nucleated Red Blood Cells % (auto) 0.0 12/30/19 06:15: Bedside Glucose (Misc Panel) 119H 12/30/19 11:22: Bedside Glucose (Misc Panel) 137H CBC/BMP Laboratory Tests 12/30/19 05:44 12/30/19 05:45 BREONNA GAMBOA DO Dec 30, 2019 13:09
[2019-12-30 14:00] VITALS: BP 133/82
[2019-12-30] MEDS: RIVAROXABAN 10 MG TAB (XARELTO) PO SCH (17:18)
[2019-12-30 22:00] VITALS: BP 128/70
[2019-12-30] MEDS: GABAPENTIN 300 MG CAP PO SCH (22:24)
[2019-12-31] MEDS: ACETAMINOPHEN 500 MG TAB PO SCH ×3 (05:53→21:50)
[2019-12-31 06:00] VITALS: BP 121/67
[2019-12-31 07:30] VITALS: BP 101/54
[2019-12-31 07:41] LABS: HEMATOCRIT 31.8 % (36.0-47.0); HEMOGLOBIN 10.6 g/dl (12.0-15.5); MEAN CORPUSCULAR HEMOGLOBIN 28.8 pg (27.0-33.0); MEAN CORPUSCULAR HGB CONC 33.3 g/dl (32.0-36.5); MEAN CORPUSCULAR VOLUME 86.4 fl (80.0-96.0); PLATELET COUNT, AUTOMATED 320 10^3/uL (150-450); RED BLOOD COUNT 3.68 10^6/uL (4.00-5.40); WHITE BLOOD COUNT 10.5 10^3/uL (4.0-10.0)
[2019-12-31 08:16] LABS: BLOOD UREA NITROGEN 19 MG/DL (7-18); CALCIUM LEVEL 8.7 MG/DL (8.8-10.2); CARBON DIOXIDE LEVEL 23 MEQ/L (21-32); CHLORIDE LEVEL 103 MEQ/L (98-107); CREATININE FOR GFR 0.73 MG/DL (0.55-1.30); GLOMERULAR FILTRATION RATE > 60.0 (>39); GLUCOSE, FASTING 129 MG/DL (70-100); POTASSIUM SERUM 4.4 MEQ/L (3.5-5.1); SODIUM LEVEL 134 MEQ/L (136-145)
--- NOTE | 2019-12-31 08:56 | REP ---
PORTABLE LEFT HIP: 3-VIEWS HISTORY: Status post hemiarthroplasty. FINDINGS: Three portably obtained AP and cross-table lateral views of the left hip demonstrate hemiarthroplasty in good position. Periarticular soft tissue emphysema is seen. MTDD
[2019-12-31] MEDS: CARVedilol 6.25 MG TAB PO SCH ×2 (09:00→21:51)
[2019-12-31] MEDS: TAMSULOSIN 0.4 MG CAP PO SCH (09:21)
[2019-12-31] MEDS: SPIRONOLACTONE 12.5MG PER 1/2 TABLET PO SCH (09:21)
[2019-12-31] MEDS: DULoxetine 20 MG CAP (CYMBALTA) PO SCH (09:22)
[2019-12-31] MEDS: CETIRIZINE (ZyrTEC) 10 MG TAB PO SCH (09:22)
[2019-12-31] MEDS: HumaLOG INSULIN (NovoLOG) PER UNIT SC SCH ×4 (09:24→21:00)
[2019-12-31 14:00] VITALS: BP 139/71
--- NOTE | 2019-12-31 15:30 | RO ---
DATE OF OPERATION: 12/24/2019 PREOPERATIVE DIAGNOSIS: Left femoral neck fracture. POSTOPERATIVE DIAGNOSIS: Left femoral neck fracture. PLANNED PROCEDURE: Left hip hemiarthroplasty. PROCEDURE PERFORMED: Left hip hemiarthroplasty (cemented). SURGEON: Virgil Bonner MD HOSPITALIST NOCTURNIST PHYSICIAN: Nithin TIMMONS TYPE OF ANESTHETIC: Failed spinal converted to GA. OPERATIVE PREAMBLE: This is a 79-year-old female with mechanical fall. She had displaced femoral neck fracture. We talked about the pros, cons, risks, benefits going ahead with left hip hemiarthroplasty. I discussed with her as well. I saw her in preoperative holding and marked the left lower extremity and proceeded to surgery. OPERATIVE REPORT: The patient was brought to the operating theater. They administered spinal anesthetic which failed and converted to general anesthesia. 2 gm of IV Ancef and 2 gm IV Tranexamic Acid was administered. The patient was placed left lateral decubitus with the aid of [place] hip positioner. All bony prominences were padded. Axillary roll was used. SCDs were used on down leg and bear hugger to keep the patient warm. The leg was prepped and draped in usual sterile fashion with Chlorhexidine-based prep solution allowing over 3 minutes for prep solution drying time prior to draping. Preoperative time out was performed confirming side and patients surgery. I began by making a standard lateral curved posteriorly incision centered over lateral proximal aspect of femur. Dissection down through skin and subcutaneous tissue, achieving meticulous hemostasis. I incised the tensor fascia rukhsana in line with skin incision. I sharply incised the short adductors off the greater trochanter. I made T-shaped capsulotomy. I made the femoral neck cut approximately 1 cm above the level of the lesser trochanter. I tagged the capsule with #1 Vicryl suture. I delivered the head through the wound. This sized to 47 mm. I broached the canal using lateral box osteotome and entry reamers. I broached up to size 4, used the planer. I trialed size 4 femoral stem, minus 3 mm offset and sized for 7 mm head. This appeared appropriate. Full range of motion, no impingement and no dislocation in flexion and internal rotation and external rotation and extension. Broach was removed. The canal was thoroughly irrigated and prepared. Cement was mixed using third generation cement mixing techniques including vacuum mixing. I sized for size 3 distal cement restrictor and placed this down into the canal after thoroughly irrigating the canal. I then placed cement into the canal with pressurization techniques. I then inserted the femoral component and waited for the cement to fully set. Trunnion was cleaned. Minus 3 mm offset with minus 3 mm taper spacer was sized for a 7 mm modular head for the Synthes Grundy Hemiarthroplasty System was then impacted into place using [place] taper as stable. This was reduced, again impingement and shuck test as well stability were tested and found to be stable with normal range of motion and normal leg lengths. The wound was thoroughly irrigated. Capsular closure was obtained with #1 Vicryl sutures. Abductors were repaired using #2 FiberWire through bone tunnels using Homero-Zoran type stitch. Tensor fascia rukhsana was closed with Stratafix suture, subcutaneous tissue with 2-0 Vicryl sutures. The wound was cleaned with wet-to-dry dressing. 10 mL 0.25% Bupivacaine was instilled in and around the incision site. The skin was cleaned with wet-to-dry dressing again and Prineo type dressing was then applied and using Dermabond over top in standard fashion. This was allowed to thoroughly dry and then small ABD pad was placed over top of this. The patient was awoken from general anesthesia, transferred off the operating room table and taken to postanesthesia care unit in stable condition. All sponge, instrument and needle counts correct. Estimated blood loss 100 mL. PLAN: She is to be weightbearing as tolerated. X-ray in postanesthesia care unit. Sent urinalysis for sample. Sediment in Morgan catheter. PT/OT for transfer safety and mobilization for discharge home. Follow up in the office in 2 weeks time. Maintain hip precautions. I have spoken to the patients after the operation.Prick Stitcher instrumental in achieving visualization, holding retractors, and completing the case. TANI
--- NOTE | 2019-12-31 15:32 | IPN ---
DATE: 12/28/2019 CHIEF COMPLAINT: Postoperative day #4 left hip hemiarthroplasty complicated by a transfusion requirement. HISTORY OF PRESENT ILLNESS: This 79-year-old female underwent left hip hemiarthroplasty for a femoral neck fracture. She is doing well. She had a drop in her hemoglobin to 7.2. She was transfused 2 units packed red blood cells. The hospitalist, Dr. Seals, is following her. Her Xarelto is held. PHYSICAL EXAMINATION: This is a well-appearing 79-year-old female. She had moderate hematoma of the left hip. Incision looks clean and dry, free of redness, drainage, or deformity. The hematoma already looks a few days old. She had normal sensation and motor function of her foot. Foot is warm and well perfused. Good pedal pulses. She is alert and oriented times three. Vital signs are stable. Laboratory examination reveals hemoglobin on 12/27/2019 to be 7.2 and after transfusion 9.6. ASSESSMENT AND PLAN: This is a is a 79-year-old female postoperative day #4 from a left hip hemiarthroplasty for a femoral neck fracture complicated by slightly low hemoglobin and 2 units packed red blood cells transfusion. She is doing well. She appears stable. I would recommend holding her Xarelto for today and restarting tomorrow as long as her hemoglobin remains stable. I will follow her while she is in the hospital. I thank the hospitalist greatly for her expert care and advice. TANI
--- NOTE | 2019-12-31 15:34 | IPN ---
DATE: 12/29/2019 CHIEF COMPLAINT: Postoperative day #5 left hip hemiarthroplasty for a femoral neck fracture. HISTORY OF PRESENT ILLNESS: A 79-year-old female is postoperative from a left hip hemiarthroplasty. She was transfused 2 units of packed red blood cells 2 days ago. She is doing well. No concerns or complaints from the nursing staff. PHYSICAL EXAMINATION: This is a well-appearing 79-year-old female. She arouses easily. She is a little bit somnolent this morning. Hematoma is not developing but is stable. No drainage over the incision. Incision looks clean and dry, free of redness. Repeat hemoglobin not yet available this morning. ASSESSMENT AND PLAN: A 79-year-old female. If her hemoglobin is stable, we may restart her anticoagulation. I will follow her while in hospital. TANI
--- NOTE | 2019-12-31 17:02 | IPNPDOC ---
Subjective Date Seen The patient was seen on 12/31/19. Subjective Chief Complaint/HPI Mrs. Neff is a 79 year old female here with leg pain after mechanical fall found to have left femoral neck fracture s/p hemiarthroplasty on 12/24/2019. This morning, she told me about her irritable bowel syndrome which has caused her chronic abdominal pain associated with bowel movements. Otherwise, denies fever/chills, chest pain, or dyspnea. She still had the Morgan catheter this morning. Will try removing after 24hours from first tamsulosin dose Constitutional: Denies: Fever Pulmonary: Denies: Dyspnea Cardiovascular: Denies: Chest Pain Gastrointestinal: Reports: Abdominal Pain (associated with BM (history of IBS)) Genitourinary: Reports: Other Symptoms (Morgan in place this morning) Objective Physical Examination General Exam: Positive: Alert, Cooperative Eye Exam: Positive: PERRLA ENT Exam: Positive: Atraumatic Neck Exam: Positive: Supple Chest Exam: Positive: Clear to auscultation Heart Exam: Positive: Rate Normal Abdomen Exam: Positive: Normal bowel sounds Extremity Exam: Positive: Other (tenderness over left hip) Skin Exam: Positive: Nl turgor and temperature Neuro Exam: Positive: Cranial Nerves 3-12 NL Psych Exam: Positive: Mental status NL Assessment /Plan Assessment Mrs. Neff is a 79 year old female here with leg pain after mechanical fall found to have left femoral neck fracture s/p hemiarthroplasty on 12/24/2019. She had required 2 units of pRBC on 12/27/2019 and has responded appropriately. Hemog lobin stable and has restarted Xarelto. Otherwise pending placement Plan/VTE VTE Prophylaxis Ordered?: Yes Plan 1. L femoral neck fx s/p mechanical fall -Status post hemiarthroplasty on 12/24/19. -Pending placement 2. Acute anemia requiring transfusion -Maybe secondary to left lateral thigh hematoma 2/2 Xarelto -Resolved. Resumed Xarelto 3. DM -Insulin SS 4. HTN -continue home medication 5. CAD -Continue Coreg, aspirin, statin 6. History of TIA -Continue aspirin and statin 7. Constipation/IBS -Resolved -Abd pain 2/2 IBS 8. Acute urinary retention -Will try removing Morgan catheter after 24 hours from first tamsulosin dose -She may need to go with Morgan catheter, pending response 9. DVT ppx -On Xarelto Dispo: Pending placement VS, I&O, 24H, Fishbone Vital Signs/I&O Vital Signs Date Time Temp Pulse Resp B/P (MAP) Pulse Ox O2 Delivery O2 Flow Rate FiO2 12/31/19 14:00 98.2 94 17 139/71 (93) 99 Room Air 12/27/19 12:18 94 12/27/19 00:52 1.0 I&O- Last 24 Hours up to 6 AM 12/31/19 06:00 Intake Total 1390 ml Output Total 1500 ml Balance -110 ml Laboratory Data 24H LABS Laboratory Tests 2 12/30/19 21:11: Bedside Glucose (Misc Panel) 162H 12/31/19 07:04: Nucleated Red Blood Cells % (auto) 0.0, Anion Gap 8, Glomerular Filtration Rate > 60.0, Calcium Level 8.7L 12/31/19 07:38: Bedside Glucose (Misc Panel) 126H 12/31/19 11:21: Bedside Glucose (Misc Panel) 125H 12/31/19 16:33: Bedside Glucose (Misc Panel) 146H CBC/BMP Laboratory Tests 12/31/19 07:04 BREONNA GAMBOA DO Dec 31, 2019 17:02
[2019-12-31] MEDS: RIVAROXABAN 10 MG TAB (XARELTO) PO SCH (17:43)
[2019-12-31] MEDS: GABAPENTIN 300 MG CAP PO SCH (21:50)
[2019-12-31 22:00] VITALS: BP 140/71
[2020-01-01 06:00] VITALS: BP 141/71
[2020-01-01 06:14] LABS: HEMATOCRIT 33.8 % (36.0-47.0); HEMOGLOBIN 10.9 g/dl (12.0-15.5); MEAN CORPUSCULAR HEMOGLOBIN 28.2 pg (27.0-33.0); MEAN CORPUSCULAR HGB CONC 32.2 g/dl (32.0-36.5); MEAN CORPUSCULAR VOLUME 87.3 fl (80.0-96.0); PLATELET COUNT, AUTOMATED 383 10^3/uL (150-450); RED BLOOD COUNT 3.87 10^6/uL (4.00-5.40); WHITE BLOOD COUNT 10.6 10^3/uL (4.0-10.0)
[2020-01-01] MEDS ORDERED: TRAM50TA2 PO (06:21)
[2020-01-01] MEDS ORDERED: XARE10TA PO (06:21)
[2020-01-01] MEDS ORDERED: ACET-683 PO (06:21)
[2020-01-01] MEDS: ACETAMINOPHEN 500 MG TAB PO SCH ×2 (06:30→12:53)
[2020-01-01 06:44] LABS: BLOOD UREA NITROGEN 24 MG/DL (7-18); CALCIUM LEVEL 9.9 MG/DL (8.8-10.2); CARBON DIOXIDE LEVEL 25 MEQ/L (21-32); CHLORIDE LEVEL 102 MEQ/L (98-107); CREATININE FOR GFR 0.84 MG/DL (0.55-1.30); GLOMERULAR FILTRATION RATE > 60.0 (>39); GLUCOSE, FASTING 131 MG/DL (70-100); POTASSIUM SERUM 4.5 MEQ/L (3.5-5.1); SODIUM LEVEL 132 MEQ/L (136-145)
[2020-01-01] MEDS: HumaLOG INSULIN (NovoLOG) PER UNIT SC SCH ×2 (07:30→12:26)
--- NOTE | 2020-01-01 08:56 | REPVR ---
PROCEDURE INFORMATION: Exam: XR Left Ankle Exam date and time: 01/01/2020 8:32 AM Age: 79 years old Clinical indication: Pain; Ankle; Left; Additional info: Left ankle pain, history of recent hip fracture, best images possible TECHNIQUE: Imaging protocol: XR Left ankle. Views: Frontal, lateral, and 2 oblique views. COMPARISON: CR Ankle, complete 11/06/2014 8:18 PM FINDINGS: Bones/joints: No acute bony abnormality identified. A small plantar calcaneal ossified spur is present. Soft tissues: Normal. IMPRESSION: 1. No acute bony abnormality identified. 2. Plantar calcaneal spur. Electronically signed by: Brayan Bosch On 01/01/2020 08:56:31 AM
[2020-01-01] MEDS ORDERED: BACTRIM 160MG/800MG DS TAB PO SCH (09:00)
[2020-01-01] MEDS: TAMSULOSIN 0.4 MG CAP PO SCH (09:59)
[2020-01-01] MEDS: CETIRIZINE (ZyrTEC) 10 MG TAB PO SCH (10:00)
[2020-01-01] MEDS: SPIRONOLACTONE 12.5MG PER 1/2 TABLET PO SCH (10:00)
[2020-01-01] MEDS: DULoxetine 20 MG CAP (CYMBALTA) PO SCH (10:00)
[2020-01-01 10:01] VITALS: BP 141/71
[2020-01-01] MEDS: CARVedilol 6.25 MG TAB PO SCH (10:01)
[2020-01-01] MEDS ORDERED: BACT800T5 PO (10:21)
[2020-01-01] MEDS ORDERED: FLOM0.4C39 PO (10:21)
[2020-01-01] MEDS ORDERED: CARV6.25 PO (10:21)
--- NOTE | 2020-01-01 19:27 | DS.PDOC ---
Discharge Summary General Date of Admission Dec 23, 2019 at 05:37 Date of Discharge Jan 01, 2020 Attending Physician: BREONNA GAMBOA DO Specialist/[facility], Dr. Bonner Discharge Summary PROCEDURES PERFORMED DURING STAY: Left hip hemiarthroplasty for femoral neck fracture ADMITTING DIAGNOSES: 1. Left femoral neck fracture status post mechanical fall 2. Diabetes mellitus 3. Hypertension. DISCHARGE DIAGNOSES: 1. Left femoral neck fracture status post mechanical fall 2. Acute anemia requiring transfusion 3. Diabetes mellitus 4. Hypertension 5. Coronary artery disease 6. History of TIA 7. IBS 8. Acute urinary retention 9. Acute diplopia secondary to pain medication COMPLICATIONS/CHIEF COMPLAINT: FALL. HISTORY OF PRESENT ILLNESS: Patient is a 79-year-old female with hypertension, diet-controlled diabetes, neuropathy, diastolic CHF who presented to the hospital with leg pain after mechanical fall. She stated that she slipped. In the ED her x-ray demonstrated fracture of the left femoral neck with varus angulation and cephalad migration of the distal fragment. HOSPITAL COURSE: She had her surgery on 12/24/2019. Hospitalization was complicated by acute encephalopathy secondary to pain medication. With holding pain medication resolved encephalopathy. Subsequently she developed left hematoma with acute anemia. Xarelto was held and she was transfused with 2 units of packed red blood cells. Her hemoglobin responded appropriately from 7.2 to 9.5. Since then her hemoglobin has been stable and was restarted on Xarelto. During hospitalization she did develop acute urinary retention. She is given Flomax. After 24 hours of Flomax, Morgan was removed. She is able to urinate. This morning, she is complaining of dysuria and left ankle pain. X-ray of the left ankle demonstrated no acute bony abnormality but there was a plantar calcaneal spur. UA was obtained, demonstrated 3+ leukocytes and no nitrites. Also demonstrated 2+ bacteria. Urine culture currently pending. Otherwise, she denies any fever or chills, shortness of breath, chest pain, or abdominal pain DISCHARGE MEDICATIONS: Please see below. ALLERGIES: Please see below. PHYSICAL EXAMINATION ON DISCHARGE: VITAL SIGNS: Please see below. GENERAL: Comfortable, in no apparent distress. HEENT: Head normocephalic/atraumatic, EOMI, sclera clear. NECK: Supple RESPIRATORY: Lungs clear to auscultation bilaterally, no rales, wheeze or rhonchi. CARDIOVASCULAR: Regular rate and rhythm. ABDOMEN: Soft, nontender, no guarding or rebound tenderness. Normal bowel sounds. MUSCLE SKELETAL: Tenderness over right hip, no tenderness in the ankles. No pitting edema NEUROLOGICAL: CN 312 grossly intact, no focal deficits noted. PSYCHOLOGICAL: Normal mood and affect LABORATORY DATA: Please see below. IMAGING: Ankle x-ray 1. No acute bony abnormality identified. 2. Plantar calcaneal spur. CT abdomen and pelvis Status post left hip arthroplasty. Extensive beam hardening artifact from the hardware limits evaluation of adjacent organs. There is a large lateral left thigh subcutaneous hematoma measuring at least 4.2 x 4.2 x 11.5 cm. Additional intramuscular blood and gas is noted in the left thigh musculature, likely postsurgical. X-ray of left hip Fracture of the left femoral neck with varus angulation and cephalad migration of the distal fragment. PROGNOSIS: Stable ACTIVITY: As tolerated DIET: Carbohydrate consistent diet DISCHARGE PLAN: [facility] Home DISPOSITION: [facility]. DISCHARGE INSTRUCTIONS: 1. Follow-up with her physician at [facility] 2. Follow-up with her primary care provider within 7 days of discharge 3. Follow-up with orthopedics on 01/08/2020 ITEMS TO FOLLOWUP ON ON OUTPATIENT: 1. Urine culture results DISCHARGE CONDITION: Stable Total time spent on discharge planning, discharge summary, and med reconciliation 45 minutes Vital Signs/I&Os Vital Signs Date Time Temp Pulse Resp B/P (MAP) Pulse Ox O2 Delivery O2 Flow Rate FiO2 01/01/20 15:53 102 95 Nasal Cannula 3.0 01/01/20 10:01 141/71 01/01/20 06:00 98.2 17 12/27/19 12:18 94 I&O- Last 24 Hours up to 6 AM 01/01/20 06:00 Intake Total 1530 ml Output Total 1300 ml Balance 230 ml Laboratory Data Labs 24H Laboratory Tests 2 12/31/19 21:08: Bedside Glucose (Misc Panel) 117H 01/01/20 05:55: Nucleated Red Blood Cells % (auto) 0.0, Anion Gap 5L, Glomerular Filtration Rate > 60.0, Calcium Level 9.9 01/01/20 08:15: Urine Color YELLOW, Urine Appearance HAZY, Urine pH 7.0, Urine Specific [place] 1.009, Urine Protein NEGATIVE, Urine Glucose (UA) NEGATIVE, Urine Ketones NEGATIVE, Urine Blood 1+H, Urine Nitrite NEGATIVE, Urine Bilirubin NEGATIVE, Urine Urobilinogen 0.2, Urine Leukocyte Esterase 3+H, Urine WBC (Auto) 131H, Urine RBC (Auto) 7H, Urine Hyaline Casts (Auto) 0, Urine Bacteria (Auto) 2+H, Urine Squamous Epithelial Cells 4, Urine Sperm (Auto) 01/01/20 10:32: Coronavirus (COVID-19)(PCR) NEGATIVE 01/01/20 11:35: Bedside Glucose (Misc Panel) 137H CBC/BMP Laboratory Tests 01/01/20 05:55 FSBS Laboratory Tests Test 12/31/19 21:08 01/01/20 11:35 Range/Units Bedside Glucose (Misc Panel) 117 137 83-110 MG/DL Microbiology Microbiology 01/01/20 Urine Culture, Received Pending Discharge Medications Scheduled Acetaminophen (Acetaminophen) 500 Mg Tablet, 1,000 MG PO Q8H Aspirin (Aspirin EC) 81 Mg Tablet.dr, 81 MG PO DAILY, (Reported) Biotin (Biotin) 1,000 Mcg Tab.chew, 2,000 MCG PO DAILY, (Reported) Carvedilol (Carvedilol) 6.25 Mg Tablet, 6.25 MG PO BID Cetirizine HCl (Cetirizine HCl) 10 Mg Tablet, 10 MG PO DAILY, (Reported) Duloxetine HCl (Duloxetine HCl) 20 Mg Capsule.dr, 20 MG PO DAILY, (Reported) Gabapentin (Gabapentin) 300 Mg Cap, 600 MG PO QHS, (Reported) Rivaroxaban (Xarelto) 10 Mg Tablet, 10 MG PO DAILY Spironolactone (Spironolactone) 25 Mg Tab, 12.5 MG PO DAILY, (Reported) Sulfamethoxazole/Trimethoprim (Bactrim Ds Tablet) 1 Each Tablet, 1 TAB PO BID Tamsulosin HCl (Flomax) 0.4 Mg Capsule, 0.4 MG PO DAILY Scheduled PRN Fluticasone Propionate (Flonase Allergy Relief) 9.9 Ml [place].susp, 1 SPRAY NA DAILY PRN for NASAL CONGESTION, (Reported) Nitroglycerin (Nitrostat) 0.4 Mg Tab.subl, 0.4 MG SL NITRO PRN for CHEST PAIN, (Reported) Tramadol HCl (Tramadol HCl) 50 Mg Tablet, 1 TAB PO Q6H PRN for PAIN Allergies Coded Allergies: ketorolac (Verified Allergy, Severe, ANAPHYLAXIS, 12/30/18) naproxen (Verified Allergy, Severe, ANAPHYLAXIS, 12/30/18) meperidine (Verified Allergy, Intermediate, NAUSEA AND VOMITING, 12/30/18) nitrofurantoin (Verified Allergy, Intermediate, NAUSEA AND VOMITING, 12/30/18) BREONNA GAMBOA DO Jan 01, 2020 19:27
== END 2020-01-01 12:50 | DRG 521 ==
LOC: M ED 02:49 → M ED INP 05:37 → M MS5PR 09:50
PROVIDERS: ADMIT Internal Medicine; ATTEND Internal Medicine
PROC: 0SRS0J9 Replacement of Left Hip Joint, Femoral Surface with Synthetic Substitute, Cemented, Open Approach (ICD-10-PCS; principal; 2019-12-24 15:45)
PROC: 30233N1 Transfusion of Nonautologous Red Blood Cells into Peripheral Vein, Percutaneous Approach (ICD-10-PCS; 2019-12-27)
DX: S72.002A Fracture of unspecified part of neck of left femur, initial encounter for closed fracture (principal); G92 Toxic encephalopathy; I50.32 Chronic diastolic (congestive) heart failure; D68.32 Hemorrhagic disorder due to extrinsic circulating anticoagulants; D62 Acute posthemorrhagic anemia; M96.840 Postprocedural hematoma of a musculoskeletal structure following a musculoskeletal system procedure; I10 Essential (primary) hypertension; E11.40 Type 2 diabetes mellitus with diabetic neuropathy, unspecified; I25.10 Atherosclerotic heart disease of native coronary artery without angina pectoris; Z86.73 Personal history of transient ischemic attack (TIA), and cerebral infarction without residual deficits; H53.2 Diplopia; R33.9 Retention of urine, unspecified; W18.09XA Striking against other object with subsequent fall, initial encounter; Y92.009 Unspecified place in unspecified non-institutional (private) residence as the place of occurrence of the external cause; Z79.899 Other long term (current) drug therapy; Z79.82 Long term (current) use of aspirin; Z88.8 Allergy status to other drugs, medicaments and biological substances; Z85.820 Personal history of malignant melanoma of skin

== ENCOUNTER → 2020-01-07 | Outpatient (REF) ==
[~2020-01-07] MED LIST changes: +ACET-683 PO; +ACET-897 PO; +ASPI-161 PO; +BACT800T5 PO; +BIOT10009 PO; +CARV12.5 PO; +CARV6.25 PO; +CETI10TA8 PO; +DULO20CA27 PO; +FLOM0.4C39 PO; +FLON1SPR; +NITR4TASL SL; +TRAM50TA2 PO; +XARE10TA PO
[2020-01-07 10:31] LABS: HEMATOCRIT 34.7 % (36.0-47.0); MEAN CORPUSCULAR HEMOGLOBIN 27.9 pg (27.0-33.0); MEAN CORPUSCULAR HGB CONC 31.7 g/dl (32.0-36.5); MEAN CORPUSCULAR VOLUME 88.1 fl (80.0-96.0); PLATELET COUNT, AUTOMATED 625 10^3/uL (150-450); RED BLOOD COUNT 3.94 10^6/uL (4.00-5.40); WHITE BLOOD COUNT 11.2 10^3/uL (4.0-10.0)
[2020-01-07 11:17] LABS: HEMOGLOBIN A1c 6.1 %
[2020-01-07 11:23] LABS: CALCIUM LEVEL 10.5 MG/DL (8.8-10.2); CREATININE FOR GFR 1.04 MG/DL (0.55-1.30); GLOMERULAR FILTRATION RATE 54.4 (>39); POTASSIUM SERUM 5.3 MEQ/L (3.5-5.1)
== END ==
LOC: SKLAB5 07:56
PROVIDERS: ATTEND Internal Medicine
DX: E87.1 Hypo-osmolality and hyponatremia (principal); E11.9 Type 2 diabetes mellitus without complications

== ENCOUNTER → 2020-01-11 | Outpatient (REF) ==
[2020-01-11 06:51] LABS: HEMATOCRIT 32.2 % (36.0-47.0); HEMOGLOBIN 10.4 g/dl (12.0-15.5); MEAN CORPUSCULAR HEMOGLOBIN 28.4 pg (27.0-33.0); MEAN CORPUSCULAR HGB CONC 32.3 g/dl (32.0-36.5); PLATELET COUNT, AUTOMATED 480 10^3/uL (150-450); RED BLOOD COUNT 3.66 10^6/uL (4.00-5.40); WHITE BLOOD COUNT 9.3 10^3/uL (4.0-10.0)
[2020-01-11 07:22] LABS: BLOOD UREA NITROGEN 19 MG/DL (7-18); CALCIUM LEVEL 9.6 MG/DL (8.8-10.2); CARBON DIOXIDE LEVEL 26 MEQ/L (21-32); CHLORIDE LEVEL 101 MEQ/L (98-107); CREATININE FOR GFR 0.88 MG/DL (0.55-1.30); GLOMERULAR FILTRATION RATE > 60.0 (>39); GLUCOSE, FASTING 114 MG/DL (70-100); POTASSIUM SERUM 4.5 MEQ/L (3.5-5.1); SODIUM LEVEL 134 MEQ/L (136-145)
== END ==
LOC: SKLAB5 10:16
PROVIDERS: ATTEND Internal Medicine
DX: E87.5 Hyperkalemia (principal); D64.9 Anemia, unspecified

== ENCOUNTER → 2020-01-21 | Outpatient (REF) | payer MEDICARE ==
[2020-01-21 14:16] LABS: BASO % 0.4 % (0.0-1.0); EOS # 0.2 10^3/uL (0.0-0.5); EOS % 2.1 % (0.0-3.0); HEMATOCRIT 37.1 % (36.0-47.0); HEMOGLOBIN 11.5 g/dl (12.0-15.5); LYMPH # 1.6 10^3/uL (1.5-5.0); LYMPH % 20.3 % (24.0-44.0); MEAN CORPUSCULAR HEMOGLOBIN 27.6 pg (27.0-33.0); MONO # 0.9 10^3/uL (0.0-0.8); MONO % 11.4 % (0.0-5.0); NEUTROPHILS # 5.2 10^3/uL (1.5-8.5); NEUTROPHILS % 65.3 % (36.0-66.0); PLATELET COUNT, AUTOMATED 320 10^3/uL (150-450); RED BLOOD COUNT 4.17 10^6/uL (4.00-5.40)
[2020-01-21 14:34] LABS: BLOOD UREA NITROGEN 16 MG/DL (7-18); CALCIUM LEVEL 9.7 MG/DL (8.8-10.2); CARBON DIOXIDE LEVEL 29 MEQ/L (21-32); CHLORIDE LEVEL 102 MEQ/L (98-107); CREATININE FOR GFR 0.83 MG/DL (0.55-1.30); GLOMERULAR FILTRATION RATE > 60.0 (>39); GLUCOSE, FASTING 117 MG/DL (70-100); POTASSIUM SERUM 4.2 MEQ/L (3.5-5.1); SODIUM LEVEL 136 MEQ/L (136-145)
== END ==
LOC: M SFHCPLAZ 12:10
PROVIDERS: ATTEND Family Medicine
DX: R30.0 Dysuria (principal); D64.9 Anemia, unspecified; E87.1 Hypo-osmolality and hyponatremia

== ENCOUNTER → 2020-02-10 | Outpatient (CLI) | payer MEDICARE | LOC: M LABSMTC 14:45 | PROVIDERS: ATTEND Internal Medicine Cardiovascular Disease | DX: Z01.812 Encounter for preprocedural laboratory examination (principal); Z20.828 Contact with and (suspected) exposure to other viral communicable diseases ==

== ENCOUNTER → 2020-02-11 | Outpatient (REF) | payer MEDICARE | LOC: M LAB REF 16:53 | PROVIDERS: ATTEND Internal Medicine Nephrology | DX: N39.0 Urinary tract infection, site not specified (principal) ==

== ENCOUNTER → 2020-03-14 | Outpatient (REF) | payer MEDICARE ==
[2020-03-14 15:11] LABS: HEMATOCRIT 43.6 % (36.0-47.0); HEMOGLOBIN 13.7 g/dl (12.0-15.5); MEAN CORPUSCULAR HEMOGLOBIN 27.5 pg (27.0-33.0); MEAN CORPUSCULAR HGB CONC 31.4 g/dl (32.0-36.5); MEAN CORPUSCULAR VOLUME 87.4 fl (80.0-96.0); PLATELET COUNT, AUTOMATED 261 10^3/uL (150-450); RED BLOOD COUNT 4.99 10^6/uL (4.00-5.40); WHITE BLOOD COUNT 7.2 10^3/uL (4.0-10.0)
[2020-03-14 15:56] LABS: HEMOGLOBIN A1c 6.2 %
== END ==
LOC: M SFHCPLAZ 12:59
PROVIDERS: ATTEND Family Medicine
DX: D64.9 Anemia, unspecified (principal); E11.9 Type 2 diabetes mellitus without complications

== ENCOUNTER 2020-05-02 17:19 | Inpatient (IN) | payer MEDICARE ==
[~2020-05-02] VITALS: Ht 167.6 cm; Wt 60.8 kg
[~2020-05-02 17:19] MED LIST changes: +GABA-282 PO; -GABA-843 PO
[2020-05-02] MEDS ORDERED: FAMO40TA3 (18:12)
[2020-05-02 18:25] LABS: HEMATOCRIT 44.5 % (36.0-47.0); HEMOGLOBIN 14.6 g/dl (12.0-15.5); MEAN CORPUSCULAR HEMOGLOBIN 27.7 pg (27.0-33.0); MEAN CORPUSCULAR HGB CONC 32.8 g/dl (32.0-36.5); MEAN CORPUSCULAR VOLUME 84.4 fl (80.0-96.0); PLATELET COUNT, AUTOMATED 351 10^3/uL (150-450); RED BLOOD COUNT 5.27 10^6/uL (4.00-5.40); WHITE BLOOD COUNT 12.7 10^3/uL (4.0-10.0)
[2020-05-02 18:47] LABS: ALBUMIN 3.8 GM/DL (3.2-5.2); ALT/SGPT 18 U/L (12-78); AMYLASE 32 U/L (25-115); BILIRUBIN,DIRECT 0.2 MG/DL (0.0-0.2); BILIRUBIN,TOTAL 0.7 MG/DL (0.2-1.0); BLOOD UREA NITROGEN 30 MG/DL (7-18); CALCIUM LEVEL 11.5 MG/DL (8.8-10.2); CARBON DIOXIDE LEVEL 27 MEQ/L (21-32); CHLORIDE LEVEL 99 MEQ/L (98-107); CREATININE FOR GFR 1.02 MG/DL (0.55-1.30); GLOMERULAR FILTRATION RATE 55.5 (>32); GLUCOSE, FASTING 137 MG/DL (70-100); POTASSIUM SERUM 3.4 MEQ/L (3.5-5.1); SODIUM LEVEL 137 MEQ/L (136-145); TOTAL PROTEIN 7.9 GM/DL (6.4-8.2)
[2020-05-02] MEDS ORDERED: NS 1,000 ML IV ONE (19:00)
[2020-05-02 19:23] LABS: OSMOLALITY SERUM 295 MOSM/KG (280-301)
--- NOTE | 2020-05-02 19:34 | REP ---
INDICATION: ALTERED MENTAL STATUS. COMPARISON: Comparison chest x-ray 12/23/2019. TECHNIQUE: Two views.. FINDINGS: The lungs are symmetrically aerated and free of infiltrate. Pleural angles are sharp. Heart is enlarged unchanged. The aorta is tortuous and calcific. Pulmonary vasculature is not increased. No acute bony abnormality. There are degenerative spondylosis changes. IMPRESSION: Cardiomegaly. Otherwise no acute disease.. <Electronically signed by Derrick Maciel > 05/02/201929
--- NOTE | 2020-05-02 19:36 | REP ---
INDICATION: pain/falls ENDY in december. COMPARISON: December 24, 2019.. TECHNIQUE: AP pelvis and AP and frogleg views of the left hip are obtained. FINDINGS: Patient is status post left hip hemiarthroplasty. The prosthetic femoral head is well aligned with respect to the acetabulum and the proximal femur. No fracture or subluxation is seen. Pelvic ring is intact. No pelvic or sacral fracture is seen. Right hip is intact. There are skin serenity in the midline. The visualized bowel gas pattern is normal. IMPRESSION: Status post left hip hemiarthroplasty. No fracture or other acute bony abnormality. <Electronically signed by Derrick Maciel > 05/02/201931
[2020-05-02 19:53] LABS: ACETAMINOPHEN LEVEL < 2.0 UG/ML (10.0-30.0); CPK CREATINE PHOSPHOKINASE 106 U/L (26-192); MB/CK RELATIVE INDEX 1.89 (< OR =4); SALICYLATE LEVEL < 1.7 MG/DL (5.0-30.0); TROPONIN I < 0.02 NG/ML (< 0.10)
--- NOTE | 2020-05-02 20:06 | REPVR ---
PROCEDURE INFORMATION: Exam: CT Head Without Contrast Exam date and time: 05/02/2020 7:31 PM Age: 80 years old Clinical indication: Altered mental status/memory loss; Additional info: Confused TECHNIQUE: Imaging protocol: Computed tomography of the head without contrast. Radiation optimization: All CT scans at this facility use at least one of these dose optimization techniques: automated exposure control; mA and/or kV adjustment per patient size (includes targeted exams where dose is matched to clinical indication); or iterative reconstruction. COMPARISON: CT Head without contrast 12/27/2019 5:24 PM FINDINGS: Brain: There is age-related volume loss. There is white matter lucency consistent with chronic microvascular disease. No acute infarct is identified. There is no hemorrhage or extra-axial collection. There is no mass. Cerebral ventricles: Ventricular size is mildly disproportionate to the prominence of the sulci. Bones/joints: Unremarkable. No acute fracture. Paranasal sinuses: There is left posterior ethmoid sinus opacification similar to prior scan. Mastoid air cells: Visualized mastoid air cells are well aerated. Soft tissues: Unremarkable. IMPRESSION: 1. Volume loss and chronic microvascular disease. 2. Ventricular dilatation is mildly disproportionate to cortical atrophy and normal pressure hydrocephalus should be clinically considered. Ventricular size is stable compared with prior scan. 3. No acute intracranial lesion or injury and no change from prior scan. Electronically signed by: Popeye Hampton On 05/02/2020 20:06:12 PM
[2020-05-02] MEDS ORDERED: ONDANSETRON 4MG/2ML VIAL IV PRN (22:15)
[2020-05-02 22:58] LABS: RSV AMPLIFICATION NEGATIVE (NEGATIVE)
[2020-05-02] MEDS ORDERED: D31000TA2 PO (23:04)
[2020-05-02] MEDS ORDERED: SPIR-10 PO (23:04)
[2020-05-02] MEDS ORDERED: FAMO40TA3 PO (23:04)
[2020-05-02] MEDS ORDERED: BIOT1000 PO (23:04)
[2020-05-02] MEDS ORDERED: CARV12.5 PO (23:04)
[2020-05-02] MEDS ORDERED: POTASSIUM CHLORIDE 10 MEQ SR TABLET PO ONE (23:30)
[2020-05-02] MEDS ORDERED: FLUTICASONE PROP 0.05% NASAL SPRAY 16 GM (FLONASE) PRN (23:30)
[2020-05-02] MEDS ORDERED: NITROGLYCERIN 0.4 MG SUBL TABLET SL PRN (23:30)
[2020-05-02] MEDS: cefTRIAXone SOD 1 GM in D5W MINI-BAG PLUS 50 ML IV SCH (23:57)
[2020-05-02] MEDS: FAMOTIDINE 20 MG TAB PO SCH (23:58)
--- NOTE | 2020-05-03 00:02 | HPEPDOC ---
General Date of Admission 05/02/2020 Date of Service: May 02, 2020 Chief Complaint The patient is a 80-year-old female admitted with a reason for visit of General Health. Source: Family Exam Limitations: Clinical conditions, Mild cognitive slowing, Garbled speech Timing/Duration: Other (weeks to months) Associated Symptoms: Weakness History of Present Illness Limited info was able to be obtained from patient, thus the majority of HPI was obtained from patient's son. Per patient's son, "For the past few weeks, patient was intermittently confused. She was unable to control her urination. Her gait has been changed for couple months, she fell 3-4 weeks ago because her knee" gave out". She had a couple more few falls since then. She can stand with assist but only briefly. Patient mentioned she hit her head and her buttock region with fall 3-4 weeks ago. Her speech is slower and quieter than usual, not confused but distracted. Mother reported no fever, chills. She reported dysuria today, no urgency or frequency. No flank pain. Patient was complaining about left hip pain after the fall from 3-4 weeks ago. No facial droopiness, no expressive or receptive aphasia" Patient reported that she last felt normal in Dec 2019 when she first started falling, she reported had fallen more than 10 times since Dec 2019. She reported when she felt in Mar, she fell backwards and hit the back of her head and her buttock, reported fall with landing on her buttock. She reported that she is able to move all 4 extremities. Home Medications Scheduled Aspirin (Aspirin EC) 81 Mg Tablet.dr, 81 MG PO DAILY, (Reported) Biotin (Biotin) 1 Mg Tablet, 1,000 MCG PO DAILY, (Reported) Carvedilol (Carvedilol) 12.5 Mg Tablet, 12.5 MG PO BID, (Reported) Cetirizine HCl (Cetirizine HCl) 10 Mg Tablet, 10 MG PO DAILY, (Reported) Cholecalciferol (Vitamin D3) (Vitamin D3) 1,000 Unit Tablet, 1,000 UNITS PO DAILY, (Reported) Duloxetine HCl (Duloxetine HCl) 20 Mg Capsule.dr, 20 MG PO DAILY, (Reported) Famotidine (Famotidine) 40 Mg Tablet, 40 MG PO QHS, (Reported) Gabapentin (Gabapentin) 300 Mg Cap, 600 MG PO QHS, (Reported) Spironolactone (Spironolactone) 25 Mg Tablet, 12.5 MG PO DAILY, (Reported) Scheduled PRN Fluticasone Propionate (Flonase Allergy Relief) 9.9 Ml Center.susp, 1 SPRAY NA DAILY PRN for NASAL CONGESTION, (Reported) Nitroglycerin (Nitrostat) 0.4 Mg Tab.subl, 0.4 MG SL NITRO PRN for CHEST PAIN, (Reported) Allergies Coded Allergies: ketorolac (Verified Allergy, Severe, ANAPHYLAXIS, 12/30/18) naproxen (Verified Allergy, Severe, ANAPHYLAXIS, 12/30/18) meperidine (Verified Allergy, Intermediate, NAUSEA AND VOMITING, 12/30/18) nitrofurantoin (Verified Allergy, Intermediate, NAUSEA AND VOMITING, 12/30/18) Past Medical History Medical History 1.Hypertension 2. Type 2 diabetes, neuropathy 3. Seborrheic keratosis 4. 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 Dyspepsia 11. Depression 12. Diastolic heart failure Surgical History 1. Hysterectomy 2. A&P repairX2 3. Colonoscopy-diverticulosis and internal hemorrhoids, no polyps 4. Eye lid surgery 04/2018 5. 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 Left hip hemiarthroplasty for left hip fracture 12/2019 Family History Father: heart disease Paternal grandfather: heart disease 4 sons, 5 daughters Social History * Smoker: Denies A-FIB/CHADSVASC A-FIB History Current/History of A-Fib/PAF?: No Review of Systems Constitutional: Denies: Chills, Fever Genitourinary: Reports: Incontinence; Denies: Dysuria, Frequency Musculoskeletal: Reports: Other Symptoms (pain in buttock region); Denies: Back Pain Neurological: Reports: Incoordination, Change in speech, Confusion Other systems Due to patient's altered mental status and lethargy, unable to complete rest of ROS Physical Examination General Exam: Positive: No Acute Distress Eye Exam: Positive: Conjunctiva & lids normal, EOMI ENT Exam: Positive: Mucous membr. moist/pink Chest Exam: Positive: Clear to auscultation, Normal air movement; Negative: Rales, Rhonchi, Wheezing Heart Exam: Positive: Rate Normal, Regular Rhythm, Normal S1, Normal S2 Abdomen Exam: Positive: Normal bowel sounds, Soft; Negative: Tenderness Extremity Exam: Negative: Edema Skin Exam: Positive: Nl turgor and temperature Neuro Exam: Positive: Strength at 5/5 X4 ext, Normal Tone, Other (slowed speech); Negative: Normal Speech Psych Exam: Positive: Oriented x 3; Negative: Memory Intact Other physical findings Pos for suprapubic tenderness Vital Signs Vital Signs Date Time Temp Pulse Resp B/P (MAP) Pulse Ox O2 Delivery O2 Flow Rate FiO2 05/02/20 18:13 05/02/20 17:19 98.5 82 16 98 Room Air Laboratory Data Labs 24H Laboratory Tests 2 05/02/20 18:08: Lactic Acid Level 1.5 05/02/20 18:09: Nucleated Red Blood Cells % (auto) 0.0, Anion Gap 11, Glomerular Filtration Rate 55.5, Osmolality 295, Calcium Level 11.5H, Total Bilirubin 0.7, Direct Bilirubin 0.2, Aspartate Amino Transf (AST/SGOT) 18, Alanine Aminotransferase (ALT/SGPT) 18, Alkaline Phosphatase 144H, Total Creatine Kinase 106, Creatine Kinase MB 2.0, Creatine Kinase MB Relative Index 1.89, Troponin I < 0.02, Total Protein 7.9, Albumin 3.8, Albumin/Globulin Ratio 0.9L, Amylase Level 32, Thyroid Stimulating Hormone (TSH) 0.740, Salicylates Level < 1.7L, Acetaminophen Level < 2.0L 05/02/20 20:18: Urine Color YELLOW, Urine Appearance TURBIDH, Urine pH 5.0, Urine Specific [place] 1.017, Urine Protein 3+H, Urine Glucose (UA) NEGATIVE, Urine Ketones NEGATIVE, Urine Blood 1+H, Urine Nitrite NEGATIVE, Urine Bilirubin NEGATIVE, Urine Urobilinogen 0.2, Urine Leukocyte Esterase 2+H, Urine WBC (Auto) TNTCH, Urine RBC (Auto) 20H, Urine Hyaline Casts (Auto) 0, Urine Bacteria (Auto) NEGATIVE, Urine Squamous Epithelial Cells 1, Urine Mucus (Auto) SMALL, Urine Sperm (Auto) 05/02/20 20:48: Ammonia < 10 05/02/20 22:11: CBC/BMP Laboratory Tests 05/02/20 18:09 Microbiology Microbiology 05/02/20 Urine Culture, Received Pending 05/02/20 Blood Culture, Received Pending 05/02/20 Blood Culture, Received Pending Assessment/Plan 80 yo female came in with gait imbalance, speech changes, and urinary incontinence and head CT findings questionable for NPH with UA indicating UTI. 1. UTI. UA indicated UTI with pos leuk. esterase, WBC, and RBC. Urine cx pendi ng. Will start IV Rocephin, pending urine cx. Blood cx X2 ordered 2. Normal pressure hydrocephalus. Head CT showed "ventricular dilatation is mildly disproportionate to cortical atrophy", pt also has gait disturbance, AMS, and urinary incontinence. Night team called and spoke with Dr. Nicholson and recommended outpatient evaluation of patient's possible normal pressure hydrocephalus. PT eval and tx; fall and seizure precaution. 3. Hx of fall. Patient reported hx of multiple falls since Dec. Reported last fell normal in Dec 2019. Hip/pelvis left XR showed "s/p left hip hemiarthroplasty. No fracture." XR coccyx and sacrum ordered. PT ordered. Fall precaution. 4. Type 2 DM with neuropathy. Patient is not on outpatient medication for type 2 DM. Will have patient on SS IS and glucose checks. Hold home med Gabapentin for now 5. Depression. Hold home med Fluoxetine for now 6. Hypertension. Cont home med Carvedilol 7. Diastolic heart failure. Cont home med Carvedilol and spironolactone 8. Dyspepsia. Cont Famotidine 9. Seasonal allergies. Hold home med Cetirizine. Cont fluticasone nasal spray DVT prophylaxis: lovenox SC Plan / VTE VTE Prophylaxis Ordered?: Yes GME ATTESTATION My faculty preceptor for this patient encounter was physically present during the encounter and was fully available. All aspects of the patient interview, examination, medical decision making process, and medical care plan development were reviewed and approved by the faculty preceptor. The faculty preceptor is aware and concurs with the plan as stated in the body of this note and will attest to such by his/her cosignature. ATTENDING NOTE I, Danis Duron DO, performed a history and physical examination of the patient and discussed the management with the resident, Neri Jessica DO. I reviewed the resident's note and agree with the documented findings and plan of care. NERI JESSICA DO May 02, 2020 22:33 DANIS DURON DO May 03, 2020 04:31
[2020-05-03] MEDS: CARVedilol 12.5 MG TAB PO SCH ×3 (00:03→21:41)
[2020-05-03] MEDS: ENOXAPARIN 40MG/0.4ML SYRINGE (J1650 PER 10MG) SC SCH ×2 (00:40→11:00)
--- NOTE | 2020-05-03 00:46 | REPVR ---
PROCEDURE INFORMATION: Exam: XR Sacrum and Coccyx, 2 or More Views Exam date and time: 05/03/2020 12:12 AM Age: 80 years old Clinical indication: Pain in coccyx area; Additional info: R/O fracture. PT reported pain in buttock region TECHNIQUE: Imaging protocol: XR of the sacrum and coccyx, 2 or more views. COMPARISON: CR Sacrum, Coccyx 01/10/2017 5:25 PM FINDINGS: Bones/joints: No acute fracture or dislocation of the sacrum or coccyx is identified. There are degenerative changes in the lumbar spine. Left hip hemiarthroplasty hardware is in place, which was not fully imaged. Soft tissues: There is suture material overlying the anterior pelvic wall. Vasculature: There are atherosclerotic calc the ifications. IMPRESSION: No acute fracture or dislocation of the sacrum or coccyx. Electronically signed by: Hayden Flores On 05/03/2020 00:47:04 AM
[2020-05-03 01:40] VITALS: BP 154/72
[2020-05-03 01:45] LABS: CPK CREATINE PHOSPHOKINASE 111 U/L (26-192); TROPONIN I < 0.02 NG/ML (< 0.10)
[2020-05-03] MEDS ORDERED: GLUCAGON INJ 1MG VIAL SC PRN (03:00)
[2020-05-03] MEDS ORDERED: DEXTROSE 50% 50 ML SYRINGE IV PRN (03:00)
[2020-05-03] MEDS ORDERED: GLUCOSE 4GM CHEW TABLET PO PRN (03:00)
[2020-05-03 06:00] VITALS: BP 144/70
[2020-05-03 06:02] LABS: BASO % 0.4 % (0.0-1.0); EOS # 0.3 10^3/uL (0.0-0.5); EOS % 3.2 % (0.0-3.0); HEMATOCRIT 39.9 % (36.0-47.0); HEMOGLOBIN 12.9 g/dl (12.0-15.5); LYMPH % 20.8 % (24.0-44.0); MEAN CORPUSCULAR HEMOGLOBIN 27.3 pg (27.0-33.0); MEAN CORPUSCULAR HGB CONC 32.3 g/dl (32.0-36.5); MEAN CORPUSCULAR VOLUME 84.4 fl (80.0-96.0); MONO # 0.9 10^3/uL (0.0-0.8); MONO % 9.4 % (0.0-5.0); NEUTROPHILS # 6.3 10^3/uL (1.5-8.5); NEUTROPHILS % 65.8 % (36.0-66.0); PLATELET COUNT, AUTOMATED 297 10^3/uL (150-450); RED BLOOD COUNT 4.73 10^6/uL (4.00-5.40); WHITE BLOOD COUNT 9.5 10^3/uL (4.0-10.0)
[2020-05-03 06:22] LABS: BLOOD UREA NITROGEN 26 MG/DL (7-18); CARBON DIOXIDE LEVEL 27 MEQ/L (21-32); CHLORIDE LEVEL 106 MEQ/L (98-107); CREATININE FOR GFR 0.89 MG/DL (0.55-1.30); GLOMERULAR FILTRATION RATE > 60.0 (>32); GLUCOSE, FASTING 116 MG/DL (70-100); POTASSIUM SERUM 3.1 MEQ/L (3.5-5.1); SODIUM LEVEL 141 MEQ/L (136-145)
[2020-05-03] MEDS: KCL 10MEQ/100ML SWI (KRUN) 10 MEQ in IV 1 EA IV SCH ×3 (07:11→11:27)
[2020-05-03] MEDS: HumaLOG INSULIN (NovoLOG) PER UNIT SC SCH ×4 (09:20→21:00)
[2020-05-03 10:00] VITALS: BP 160/82
[2020-05-03] MEDS: SPIRONOLACTONE 25 MG TAB PO SCH (10:59)
[2020-05-03] MEDS: ASPIRIN 81 MG ENTERIC TAB PO SCH (10:59)
[2020-05-03] MEDS: VITAMIN D 1,000 INTERNATIONAL UNITS TABLET PO SCH (10:59)
[2020-05-03 14:00] VITALS: BP 146/70
--- NOTE | 2020-05-03 18:45 | IPNPDOC ---
Text Note Date of Service The patient was seen on 05/03/20. NOTE Subjective: Patient was seen and examined this morning at bedside. Patient is sitting in bed appears to be able to answer some questions appropriately but overall is somewhat confused appears weak. Denies any troubles her at this time. I discussed her care with her son Yaw [phone] Objective: Constitutional: Awake and alert, in no apparent distress, some confusion but answering questions mostly appropriately ENT: Sclera are clear. Mucosa is moist. Respiratory: Lungs CTA bilaterally. No respiratory distress. No use of accessory muscles. Cardiovascular: RRR S1 and S2 are normal, no murmur Gastrointestinal: Abdomen is soft, non distended, non tender, BS present. Musculoskeletal: No peripheral edema Neurologic: No focal neurological deficit. Gait not assessed will be assessed with physical therapy Mental Status: A&O x3, normal affect Assessment/plan: 80-year-old female admitted for EMS suspected to be secondary to UTI as well as urinary incontinence and gait imbalance. Head CT findings questionable for NPH. # Urinary tract infection: Urinalysis positive. Urine culture pending. On IV ceftriaxone. Fu BCx. # Acute metabolic encephalopathy suspected to be secondary to UTI: Should improve as UTI is treated. NPH might be contributing # Possible NPH: Suggested on CT head. This was discussed with neurologist semiconductor processing technician Dr. Walters who recommended outpatient follow-up. PT/OT # DM: ISS. Frequent Accu-Cheks. Hypoglycemic precautions. # Depression: Continue fluoxetine # Hypertension: Continue home meds. Monitor and titrate # Congestive heart failure with preserved ejection fraction: Continue carvedilol and spironolactone home medications. Euvolemic on exam # DVT prophylaxis: Nildax A Sarahy Hospitalist Jamila TIRADO, I+O Jamila TIRADO I+O Laboratory Tests 05/03/20 05:31 Vital Signs Date Time Temp Pulse Resp B/P (MAP) Pulse Ox O2 Delivery O2 Flow Rate FiO2 05/03/20 14:00 97.0 80 17 146/70 (95) 90 Room Air I&O- Last 24 Hours up to 6 AM 05/03/20 06:00 Intake Total 1050 ml Output Total 250 ml Balance 800 ml SALBADOR VASQUEZ MD May 03, 2020 18:44
--- NOTE | 2020-05-03 20:10 | ECGEPIP ---
[facility] - ED Test Date: 2020-05-02 Pat Name: OLEKSANDR SETH Department: Room: [place] [address] Gender: Female [employer] Games Dual Rate Supervisor: : 1940 Requested By: SUSHMA SANDOVAL PA-C Order Number: [id number] Reading MD: Genna Horner Measurements Intervals [place] Rate: 73 P: 43 ND: 147 QRS: -42 QRSD: 142 T: -6 QT: 414 QTc: 457 Interpretive Statements SINUS RHYTHM WITH OCCASIONAL ECTOPIC PREMATURE COMPLEXES MARKED LEFT AXIS DEVIATION RIGHT BUNDLE BRANCH BLOCK SIMILAR 12/23/19 Electronically Signed on 05-03-2020 20:09:41 EST by Genna Horner
[2020-05-03] MEDS: FAMOTIDINE 20 MG TAB PO SCH (21:33)
[2020-05-03 22:00] VITALS: BP 138/72
[2020-05-03] MEDS: cefTRIAXone SOD 1 GM in D5W MINI-BAG PLUS 50 ML IV SCH (23:26)
[2020-05-04 02:00] VITALS: BP 140/68
[2020-05-04 06:00] VITALS: BP 140/66
[2020-05-04 06:02] LABS: BASO # 0.1 10^3/uL (0.0-0.2); BASO % 0.6 % (0.0-1.0); EOS # 0.4 10^3/uL (0.0-0.5); EOS % 4.7 % (0.0-3.0); HEMATOCRIT 39.5 % (36.0-47.0); HEMOGLOBIN 12.9 g/dl (12.0-15.5); LYMPH % 25.7 % (24.0-44.0); MEAN CORPUSCULAR HEMOGLOBIN 27.4 pg (27.0-33.0); MEAN CORPUSCULAR HGB CONC 32.7 g/dl (32.0-36.5); MONO # 0.9 10^3/uL (0.0-0.8); MONO % 11.4 % (0.0-5.0); NEUTROPHILS # 4.5 10^3/uL (1.5-8.5); NEUTROPHILS % 57.2 % (36.0-66.0); PLATELET COUNT, AUTOMATED 290 10^3/uL (150-450); WHITE BLOOD COUNT 7.8 10^3/uL (4.0-10.0)
[2020-05-04 06:20] LABS: CREATININE FOR GFR 0.96 MG/DL (0.55-1.30); GLOMERULAR FILTRATION RATE 59.5 (>32); POTASSIUM SERUM 3.4 MEQ/L (3.5-5.1)
[2020-05-04] MEDS ORDERED: POTASSIUM CHLORIDE 10 MEQ SR TABLET PO ONE (09:00)
[2020-05-04] MEDS: VITAMIN D 1,000 INTERNATIONAL UNITS TABLET PO SCH (09:01)
[2020-05-04] MEDS: HumaLOG INSULIN (NovoLOG) PER UNIT SC SCH ×4 (09:01→20:38)
[2020-05-04] MEDS: ENOXAPARIN 40MG/0.4ML SYRINGE (J1650 PER 10MG) SC SCH (09:01)
[2020-05-04] MEDS: SPIRONOLACTONE 25 MG TAB PO SCH (09:01)
[2020-05-04] MEDS: ASPIRIN 81 MG ENTERIC TAB PO SCH (09:01)
[2020-05-04] MEDS: CARVedilol 12.5 MG TAB PO SCH ×2 (09:06→20:48)
[2020-05-04 10:00] VITALS: BP 158/92
--- NOTE | 2020-05-04 11:26 | IPNPDOC ---
Text Note Date of Service The patient was seen on 05/04/20. NOTE Subjective: Patient was seen and examined this morning at bedside. She's laying in bed very sleepy answering questions appropriately but says she feels tired but says she is willing to try to work with physical therapy later today . son Yaw [phone] Objective: Constitutional: Awake and alert, in no apparent distress, some confusion but answering questions mostly appropriately more sleepy today ENT: Sclera are clear. Mucosa is moist. Respiratory: Lungs CTA bilaterally. No respiratory distress. No use of accessory muscles. Cardiovascular: RRR S1 and S2 are normal, no murmur Gastrointestinal: Abdomen is soft, non distended, non tender, BS present. Musculoskeletal: No peripheral edema Neurologic: No focal neurological deficit. Mental Status: A&O x3, normal affect Assessment/plan: 80-year-old female admitted for AMS suspected to be secondary to UTI as well as urinary incontinence and gait imbalance. Head CT findings questionable for NPH. # Urinary tract infection: Urinalysis positive. Urine culture pending. On IV ceftriaxone. BCx negative to date. # Acute metabolic encephalopathy suspected to be secondary to UTI: Should improve as UTI is treated. NPH might be contributing # Possible NPH: Suggested on CT head. This was discussed with neurologist weapons officer naval activity Dr. Walters who recommended outpatient follow-up. PT/OT # DM: ISS. Frequent Accu-Cheks. Hypoglycemic precautions. # Depression: Continue fluoxetine # Hypertension: Continue home meds. Monitor and titrate # Congestive heart failure with preserved ejection fraction: Continue carvedilol and spironolactone home medications. Euvolemic on exam # DVT prophylaxis: Lovenox A Sarahy Hospitalist Jamila TIRADO, I+O VSJamila I+O Laboratory Tests 05/04/20 05:29 Vital Signs Date Time Temp Pulse Resp B/P (MAP) Pulse Ox O2 Delivery O2 Flow Rate FiO2 05/04/20 10:00 96.8 78 16 158/92 (114) 95 Room Air I&O- Last 24 Hours up to 6 AM 05/04/20 06:00 Intake Total 1160 ml Output Total 0 ml Balance 1160 ml SALBADOR VASQUEZ MD May 04, 2020 11:26
[2020-05-04 14:00] VITALS: BP 137/84
[2020-05-04 18:00] VITALS: BP 160/82
[2020-05-04] MEDS: FAMOTIDINE 20 MG TAB PO SCH (20:46)
[2020-05-04 22:00] VITALS: BP 135/81
[2020-05-04] MEDS: cefTRIAXone SOD 1 GM in D5W MINI-BAG PLUS 50 ML IV SCH (23:27)
[2020-05-05 06:00] VITALS: BP 145/75
[2020-05-05 06:30] LABS: BASO % 0.4 % (0.0-1.0); EOS # 0.4 10^3/uL (0.0-0.5); EOS % 4.7 % (0.0-3.0); HEMATOCRIT 37.7 % (36.0-47.0); HEMOGLOBIN 12.3 g/dl (12.0-15.5); LYMPH # 1.9 10^3/uL (1.5-5.0); LYMPH % 22.6 % (24.0-44.0); MEAN CORPUSCULAR HEMOGLOBIN 27.3 pg (27.0-33.0); MEAN CORPUSCULAR HGB CONC 32.6 g/dl (32.0-36.5); MEAN CORPUSCULAR VOLUME 83.6 fl (80.0-96.0); MONO # 0.9 10^3/uL (0.0-0.8); MONO % 11.4 % (0.0-5.0); NEUTROPHILS % 60.5 % (36.0-66.0); PLATELET COUNT, AUTOMATED 284 10^3/uL (150-450); RED BLOOD COUNT 4.51 10^6/uL (4.00-5.40); WHITE BLOOD COUNT 8.2 10^3/uL (4.0-10.0)
[2020-05-05 06:52] LABS: BLOOD UREA NITROGEN 21 MG/DL (7-18); CALCIUM LEVEL 9.6 MG/DL (8.8-10.2); CARBON DIOXIDE LEVEL 24 MEQ/L (21-32); CHLORIDE LEVEL 106 MEQ/L (98-107); CREATININE FOR GFR 0.86 MG/DL (0.55-1.30); GLOMERULAR FILTRATION RATE > 60.0 (>32); GLUCOSE, FASTING 123 MG/DL (70-100); POTASSIUM SERUM 4.1 MEQ/L (3.5-5.1); SODIUM LEVEL 140 MEQ/L (136-145)
[2020-05-05] MEDS ORDERED: NITROFURANTOIN (MACROBID) 100 MG CAP PO SCH (09:00)
[2020-05-05] MEDS: HumaLOG INSULIN (NovoLOG) PER UNIT SC SCH ×4 (09:07→20:26)
[2020-05-05] MEDS: ENOXAPARIN 40MG/0.4ML SYRINGE (J1650 PER 10MG) SC SCH (09:07)
[2020-05-05] MEDS: ASPIRIN 81 MG ENTERIC TAB PO SCH (09:08)
[2020-05-05] MEDS: VITAMIN D 1,000 INTERNATIONAL UNITS TABLET PO SCH (09:08)
[2020-05-05] MEDS: SPIRONOLACTONE 25 MG TAB PO SCH (09:08)
[2020-05-05] MEDS: CARVedilol 12.5 MG TAB PO SCH ×2 (09:10→20:26)
[2020-05-05] MEDS: NITROFURANTOIN (MACROBID) 100 MG CAP PO SCH ×2 (09:42→20:26)
--- NOTE | 2020-05-05 09:51 | IPNPDOC ---
Text Note Date of Service The patient was seen on 05/05/20. NOTE Subjective: Patient was seen and examined this morning at bedside. She looks better today that she feels better sitting up in bed able to answer my questions appropriately but still looks weak overall I discussed with her rehabilitation and she says she is interested prior to going home. I discussed with her her urine culture results and the plan for antibiotics and she understands plan. I also discussed with her the need to follow-up with urology after discharge. son Yaw [phone] Objective: Constitutional: Awake and alert, in no apparent distress, doesn't appear confused today and less sleepy than yesterday ENT: Sclera are clear. Mucosa is moist. Respiratory: Lungs CTA bilaterally. No respiratory distress. No use of accessory muscles. Cardiovascular: RRR S1 and S2 are normal, no murmur Gastrointestinal: Abdomen is soft, non distended, non tender, BS present. Musculoskeletal: No peripheral edema Neurologic: No focal neurological deficit. Mental Status: A&O x3, normal affect Assessment/plan: 80-year-old female admitted for AMS suspected to be secondary to UTI as well as urinary incontinence and gait imbalance. Head CT findings questionable for NPH which neurology would like to follow-up with her on in the clinic. Patient showed good improvement and resolution of her confusion with IV ceftriaxone and after urine sensitivities returned patient was transitioned to by mouth Macrobid. Patient was transitioned to ALC status on 05/05/2020 pending placement for subacute rehabilitation # Urinary tract infection: Urinalysis positive. Urine culture grew Aerococcus Urinae sensetive. Transitions from IV ceftriaxone to Macrobid on 05/05/2020 for an additional 5 day course. BCx negative to date. # Acute metabolic encephalopathy suspected to be secondary to UTI: Her confusion has resolved with treatment of the UTI # Possible NPH: Suggested on CT head. This was discussed with neurologist door to door salesperson Dr. Walters who recommended outpatient follow-up. PT/OT rec subacute rehabilitation # DM: ISS. Frequent Accu-Cheks. Hypoglycemic precautions. # Depression: Continue fluoxetine # Hypertension: Continue home meds. Monitor and titrate # Congestive heart failure with preserved ejection fraction: Continue carvedilol and spironolactone home medications. Euvolemic on exam # DVT prophylaxis: Lovenox A Yousef Hospitalist VS,Jamila, I+O VS, Jamila I+O Laboratory Tests 05/05/20 05:39 Vital Signs Date Time Temp Pulse Resp B/P (MAP) Pulse Ox O2 Delivery O2 Flow Rate FiO2 05/05/20 09:10 81 159/89 05/05/20 06:00 97.6 18 96 05/04/20 18:00 Room Air I&O- Last 24 Hours up to 6 AM 05/05/20 06:00 Intake Total 1870 ml Output Total 0 ml Balance 1870 ml SALBADOR VASQUEZ MD May 05, 2020 09:51
[2020-05-05 10:00] VITALS: BP 150/79
[2020-05-05 18:00] VITALS: BP 138/92
[2020-05-05] MEDS: FAMOTIDINE 20 MG TAB PO SCH (20:26)
[2020-05-06 06:00] VITALS: BP 133/78
[2020-05-06] MEDS: HumaLOG INSULIN (NovoLOG) PER UNIT SC SCH ×4 (07:46→20:36)
[2020-05-06] MEDS: VITAMIN D 1,000 INTERNATIONAL UNITS TABLET PO SCH (09:54)
[2020-05-06] MEDS: ASPIRIN 81 MG ENTERIC TAB PO SCH (09:54)
[2020-05-06] MEDS: ENOXAPARIN 40MG/0.4ML SYRINGE (J1650 PER 10MG) SC SCH (09:54)
[2020-05-06] MEDS: SPIRONOLACTONE 25 MG TAB PO SCH (09:55)
[2020-05-06] MEDS: CARVedilol 12.5 MG TAB PO SCH ×2 (09:55→20:35)
[2020-05-06] MEDS: NITROFURANTOIN (MACROBID) 100 MG CAP PO SCH (10:49)
[2020-05-06] MEDS: AMOXICILLIN 875 MG TAB PO SCH (20:35)
[2020-05-06] MEDS: FAMOTIDINE 20 MG TAB PO SCH (20:35)
[2020-05-07 06:00] VITALS: BP 148/84
[2020-05-07] MEDS: VITAMIN D 1,000 INTERNATIONAL UNITS TABLET PO SCH (10:40)
[2020-05-07] MEDS: SPIRONOLACTONE 25 MG TAB PO SCH (10:40)
[2020-05-07] MEDS: ASPIRIN 81 MG ENTERIC TAB PO SCH (10:40)
[2020-05-07] MEDS: AMOXICILLIN 875 MG TAB PO SCH ×2 (10:40→20:37)
[2020-05-07] MEDS: ENOXAPARIN 40MG/0.4ML SYRINGE (J1650 PER 10MG) SC SCH (10:42)
[2020-05-07] MEDS: CARVedilol 12.5 MG TAB PO SCH ×2 (10:45→20:37)
[2020-05-07] MEDS: HumaLOG INSULIN (NovoLOG) PER UNIT SC SCH ×4 (10:45→20:37)
[2020-05-07] MEDS: FAMOTIDINE 20 MG TAB PO SCH (20:36)
[2020-05-08 06:00] VITALS: BP 149/80
[2020-05-08] MEDS: HumaLOG INSULIN (NovoLOG) PER UNIT SC SCH ×4 (09:42→20:44)
[2020-05-08] MEDS: ASPIRIN 81 MG ENTERIC TAB PO SCH (10:29)
[2020-05-08] MEDS: AMOXICILLIN 875 MG TAB PO SCH ×2 (10:29→20:11)
[2020-05-08] MEDS: VITAMIN D 1,000 INTERNATIONAL UNITS TABLET PO SCH (10:29)
[2020-05-08] MEDS: SPIRONOLACTONE 25 MG TAB PO SCH (10:30)
[2020-05-08] MEDS: CARVedilol 12.5 MG TAB PO SCH ×2 (10:30→20:10)
[2020-05-08] MEDS: ENOXAPARIN 40MG/0.4ML SYRINGE (J1650 PER 10MG) SC SCH (10:31)
[2020-05-08] MEDS: FAMOTIDINE 20 MG TAB PO SCH (20:11)
[2020-05-09 06:00] VITALS: BP 133/87
[2020-05-09] MEDS ORDERED: MOM 30ML SUSPENSION UDC PO ONE (08:30)
[2020-05-09] MEDS ORDERED: BISACODYL 10 MG SUPP PR ONE (08:30)
[2020-05-09] MEDS: ASPIRIN 81 MG ENTERIC TAB PO SCH (08:58)
[2020-05-09] MEDS: AMOXICILLIN 875 MG TAB PO SCH (08:59)
[2020-05-09] MEDS: SPIRONOLACTONE 25 MG TAB PO SCH (08:59)
[2020-05-09] MEDS: HumaLOG INSULIN (NovoLOG) PER UNIT SC SCH (08:59)
[2020-05-09] MEDS: VITAMIN D 1,000 INTERNATIONAL UNITS TABLET PO SCH (08:59)
[2020-05-09 09:00] VITALS: BP 140/92
[2020-05-09] MEDS: CARVedilol 12.5 MG TAB PO SCH (09:00)
[2020-05-09] MEDS: ENOXAPARIN 40MG/0.4ML SYRINGE (J1650 PER 10MG) SC SCH (09:00)
--- NOTE | 2020-05-09 11:08 | DS.PDOC ---
Discharge Summary General Date of Admission May 02, 2020 at 23:41 Date of Discharge 05/09/20 Discharge Summary PROCEDURES PERFORMED DURING STAY: [None]. ADMITTING DIAGNOSES: 1. Altered mental status 2. Urinary tract infection DISCHARGE DIAGNOSES: 1. Acute metabolic encephalopathy suspected to be secondary to UTI 2. Urinary tract infection 2. Possible normal pressure hydrocephalus COMPLICATIONS/CHIEF COMPLAINT: Metabolic Encephalopathy,Uti. HISTORY OF PRESENT ILLNESS: From admitting physician H&P: Limited info was able to be obtained from patient, thus the majority of HPI was obtained from patient's son. Per patient's son, "For the past few weeks, patient was inter mittently confused. She was unable to control her urination. Her gait has been changed for couple months, she fell 3-4 weeks ago because her knee" gave out". She had a couple more few falls since then. She can stand with assist but only briefly. Patient mentioned she hit her head and her buttock region with fall 3-4 weeks ago. Her speech is slower and quieter than usual, not confused but distracted. Mother reported no fever, chills. She reported dysuria today, no urgency or frequency. No flank pain. Patient was complaining about left hip pain after the fall from 3-4 weeks ago. No facial droopiness, no expressive or receptive aphasia" Patient reported that she last felt normal in Dec 2019 when she first started falling, she reported had fallen more than 10 times since Dec 2019. She reported when she felt in Mar, she fell backwards and hit the back of her head and her buttock, reported fall with landing on her buttock. She reported that she is able to move all 4 extremities. HOSPITAL COURSE: 80-year-old female admitted for AMS suspected to be secondary to UTI as well as urinary incontinence and gait imbalance. Head CT findings questionable for NPH which neurology would like to follow-up with her on in the clinic. Patient showed good improvement and resolution of her confusion with IV ceftriaxone and after urine sensitivities returned patient was transitioned to by mouth Macrobid which she completed treatment for. Patient was transitioned to ALC status on 05/05/2020 pending placement for subacute rehabilitation DISCHARGE MEDICATIONS: Please see below. ALLERGIES: Please see below. PHYSICAL EXAMINATION ON DISCHARGE: VITAL SIGNS: Please see below. Constitutional: Awake and alert, in no apparent distress, eating breakfast, appears weak, thin frail appearing elderly female ENT: Sclera are clear. Mucosa is moist. Respiratory: Lungs CTA bilaterally. No respiratory distress. No use of acces sadie muscles. Cardiovascular: RRR S1 and S2 are normal, no murmur Gastrointestinal: Abdomen is soft, non distended, non tender, BS present. Musculoskeletal: No peripheral edema Neurologic: No focal neurological deficit. Mental Status: A&O x3, normal affect LABORATORY DATA: Please see below. IMAGING: See chart PROGNOSIS: Fair ACTIVITY: [As tolerated]. DIET: Mechanical soft diet level 4 DISPOSITION: Subacute rehabilitation DISCHARGE INSTRUCTIONS: Please follow up with your primary care physician within 1 week from discharge. If you do not have one, please follow up with us to schedule an appointment. Please keep all of your follow up appointments. Please call central to book your appointments with hospital specialists. Please take all your medications as prescribed. Please call/come to Clinic or go to the Emergency Department if - Temp >101, intractable Nausea/Vomiting, Diarrhea, Mouth sores, Headaches, Altered mental status, Seizures, sudden onset of swelling, bleeding, shortness of breath or chest pain. ITEMS TO FOLLOWUP ON ON OUTPATIENT: 1. Follow-up with PCP within 5 days of discharge 2. Follow-up with neurology referral DISCHARGE CONDITION: [Stable]. TIME SPENT ON DISCHARGE: 40 minutes. Vital Signs/I&Os Vital Signs Date Time Temp Pulse Resp B/P (MAP) Pulse Ox O2 Delivery O2 Flow Rate FiO2 05/09/20 09:00 71 140/92 05/09/20 06:00 98.3 20 96 05/08/20 06:00 Room Air I&O- Last 24 Hours up to 6 AM 05/09/20 06:00 Intake Total 480 ml Balance 480 ml Laboratory Data Labs 24H Laboratory Tests 2 05/08/20 11:23: Bedside Glucose (Misc Panel) 241H 05/08/20 16:21: Bedside Glucose (Misc Panel) 93 05/08/20 20:37: Bedside Glucose (Misc Panel) 138H 05/09/20 06:55: Bedside Glucose (Misc Panel) 127H FSBS Laboratory Tests Test 05/08/20 11:23 05/08/20 16:21 05/08/20 20:37 05/09/20 06:55 Range/Units Bedside Glucose (Misc Panel) 241 93 138 127 83-110 MG/DL Microbiology Microbiology 05/02/20 Urine Culture - Final, Complete Aerococcus Urinae 05/02/20 Blood Culture - Final, Complete NO GROWTH AFTER 5 DAYS 05/02/20 Blood Culture - Final, Complete NO GROWTH AFTER 5 DAYS Discharge Medications Scheduled Aspirin (Aspirin EC) 81 Mg Tablet.dr, 81 MG PO DAILY, (Reported) Biotin (Biotin) 1 Mg Tablet, 1,000 MCG PO DAILY, (Reported) Carvedilol (Carvedilol) 12.5 Mg Tablet, 12.5 MG PO BID, (Reported) Cetirizine HCl (Cetirizine HCl) 10 Mg Tablet, 10 MG PO DAILY, (Reported) Cholecalciferol (Vitamin D3) (Vitamin D3) 1,000 Unit Tablet, 1,000 UNITS PO DAILY, (Reported) Duloxetine HCl (Duloxetine HCl) 20 Mg Capsule.dr, 20 MG PO DAILY, (Reported) Famotidine (Famotidine) 40 Mg Tablet, 40 MG PO QHS, (Reported) Gabapentin (Gabapentin) 300 Mg Cap, 600 MG PO QHS, (Reported) Spironolactone (Spironolactone) 25 Mg Tablet, 12.5 MG PO DAILY, (Reported) Scheduled PRN Fluticasone Propionate (Flonase Allergy Relief) 9.9 Ml [place].susp, 1 SPRAY NA DAILY PRN for NASAL CONGESTION, (Reported) Nitroglycerin (Nitrostat) 0.4 Mg Tab.subl, 0.4 MG SL NITRO PRN for CHEST PAIN, (Reported) Allergies Coded Allergies: ketorolac (Verified Allergy, Severe, ANAPHYLAXIS, 12/30/18) naproxen (Verified Allergy, Severe, ANAPHYLAXIS, 12/30/18) meperidine (Verified Adverse Reaction, Mild, NAUSEA AND VOMITING, 05/05/20) nitrofurantoin (Verified Adverse Reaction, Mild, NAUSEA AND VOMITING, 05/05/20) SALBADOR VASQUEZ MD May 09, 2020 11:08
== END 2020-05-09 11:56 | DRG 689 ==
LOC: M ED 17:19 → M ED INP 23:41 → M MSPAV 05-03 01:39
PROVIDERS: ADMIT Internal Medicine; ATTEND Family Medicine
DX: N39.0 Urinary tract infection, site not specified (principal); G93.41 Metabolic encephalopathy; I50.32 Chronic diastolic (congestive) heart failure; G91.2 (Idiopathic) normal pressure hydrocephalus; Z79.82 Long term (current) use of aspirin; Z79.899 Other long term (current) drug therapy; Z88.8 Allergy status to other drugs, medicaments and biological substances; I11.0 Hypertensive heart disease with heart failure; Z85.820 Personal history of malignant melanoma of skin; K57.30 Diverticulosis of large intestine without perforation or abscess without bleeding; K64.8 Other hemorrhoids; Z96.642 Presence of left artificial hip joint; E11.40 Type 2 diabetes mellitus with diabetic neuropathy, unspecified; R29.6 Repeated falls

== ENCOUNTER → 2020-09-09 | Outpatient (REF) | payer MEDICARE ==
[~2020-09-09] MED LIST changes: +BIOT1000 PO; +D31000TA2 PO; +FAMO40TA3; +FAMO40TA3 PO
[2020-09-09 16:25] LABS: HEMOGLOBIN A1c 6.6 %
[2020-09-09 16:40] LABS: TOTAL 25(OH) VITAMIN D 19.8 NG/ML (30.0-100.0)
== END ==
LOC: M SFHCPLAZ 14:33
PROVIDERS: ATTEND Family Medicine
DX: E55.9 Vitamin D deficiency, unspecified (principal); E11.9 Type 2 diabetes mellitus without complications; E53.8 Deficiency of other specified B group vitamins

== ENCOUNTER → 2020-11-01 | Outpatient (CLI) | payer MEDICARE ==
[2020-11-01 15:54] LABS: FOLATE 14.2 NG/ML (>5.4)
== END ==
LOC: M LAB 14:20
PROVIDERS: ATTEND Psychiatry & Neurology Neurology
DX: E53.9 Vitamin B deficiency, unspecified (principal); E61.0 Copper deficiency

== ENCOUNTER → 2020-11-03 | Outpatient (REF) | payer MEDICARE | LOC: M SFHCPLAZ 17:42 | PROVIDERS: ATTEND Physician Assistant | DX: R35.0 Frequency of micturition (principal) ==

== ENCOUNTER → 2020-11-22 | Outpatient (REF) | payer MEDICARE | LOC: M LAB REF 18:47 | PROVIDERS: ATTEND Physician Assistant | DX: C44.229 Squamous cell carcinoma of skin of left ear and external auricular canal (principal) ==

== ENCOUNTER → 2021-01-26 | Outpatient (CLI) | payer MEDICARE ==
[~2021-01-26] MED LIST changes: -IBUP200T45 PO; +IBUP200T46 PO
[2021-01-26 14:22] LABS: APPEARANCE, URINE HAZY (CLEAR); BACTERIA, URINE AUTO 1+ (NEGATIVE); BILIRUBIN, URINE AUTO NEGATIVE (NEGATIVE); BLOOD, URINE BLOOD NEGATIVE (NEGATIVE); COLOR, URINE YELLOW (YELLOW); GLUCOSE, URINE (UA) AUTO NEGATIVE (NEGATIVE); KETONE, URINE AUTO NEGATIVE (NEGATIVE); LEUKOCYTE ESTERASE, URINE AUTO 2+ (NEGATIVE); NITRITE, URINE AUTO POSITIVE (NEGATIVE); PROTEIN, URINE AUTO NEGATIVE (NEGATIVE); RBC, URINE AUTO 0 /HPF (0-3); SPECIFIC GRAVITY URINE AUTO 1.009 (1.002-1.035); SQUAMOUS EPITHELIAL CELL UR AU 0 /HPF (0-6); UROBILINOGEN, URINE AUTO 0.2 mg/dL (0.0-2.0); WBC, URINE AUTO 60 /HPF (0-3)
[2021-01-26 14:43] LABS: HEMOGLOBIN A1c 6.3 %
== END ==
LOC: M PLALAB 11:54
PROVIDERS: ATTEND Family Medicine
DX: R30.0 Dysuria (principal); E11.9 Type 2 diabetes mellitus without complications

== ENCOUNTER → 2021-03-08 | Outpatient (REF) | payer MEDICARE ==
[~2021-03-08] MED LIST changes: +CETI-25 PO; -CETI10TA8 PO
== END ==
LOC: M LAB REF 17:26
PROVIDERS: ATTEND Dermatology
DX: Z48.02 Encounter for removal of sutures (principal)

== ENCOUNTER → 2021-08-15 | Outpatient (REF) | payer MEDICARE ==
[~2021-08-15] MED LIST changes: -D31000TA2 PO; +VITA100093 PO
== END ==
LOC: M SFHCDERM 17:06
PROVIDERS: ATTEND Nurse Practitioner Family
DX: L57.0 Actinic keratosis (principal); L57.8 Other skin changes due to chronic exposure to nonionizing radiation

== ENCOUNTER → 2021-08-23 | Outpatient (REF) | payer MEDICARE ==
[2021-08-23 18:14] LABS: TOTAL PROTEIN 7.3 GM/DL (6.4-8.2)
[2021-08-25 14:04] LABS: ALBUMIN 4.42 GM/DL (3.29-5.55); ALBUMIN % 60.5 % (55.8-66.1); ALPHA-1-GLOBULIN % 4.3 % (2.9-4.9); ALPHA-1-GLOBULINS 0.31 GM/DL (0.17-0.41); ALPHA-2-GLOBULINS 0.79 GM/DL (0.42-0.99); ALPHA-2-GLOBULINS % 10.8 % (7.1-11.8); BETA-1-GLOBULINS 0.47 GM/DL (0.28-0.60); BETA-1-GLOBULINS % 6.4 % (4.7-7.2); BETA-2-GLOBULINS 0.38 GM/DL (0.19-0.55); BETA-2-GLOBULINS % 5.2 % (3.2-6.5); GAMMA GLOBULIN % 12.8 % (11.1-18.8); GAMMA GLOBULINS 0.93 GM/DL (0.65-1.58)
== END ==
LOC: M LAB REF 17:15
PROVIDERS: ATTEND Nurse Practitioner Family
DX: E83.52 Hypercalcemia (principal)

== ENCOUNTER → 2021-09-19 | Outpatient (CLI) | payer MEDICARE ==
[2021-09-19 17:49] LABS: BASO % 0.3 % (0.0-1.0); EOS # 0.4 10^3/uL (0.0-0.5); EOS % 3.9 % (0.0-3.0); HEMATOCRIT 45.5 % (36.0-47.0); HEMOGLOBIN 14.9 g/dl (12.0-15.5); LYMPH # 2.3 10^3/uL (1.5-5.0); MEAN CORPUSCULAR HEMOGLOBIN 29.5 pg (27.0-33.0); MEAN CORPUSCULAR HGB CONC 32.7 g/dl (32.0-36.5); MEAN CORPUSCULAR VOLUME 90.1 fl (80.0-96.0); MONO # 0.8 10^3/uL (0.0-0.8); MONO % 8.1 % (2.0-8.0); NEUTROPHILS # 6.1 10^3/uL (1.5-8.5); NEUTROPHILS % 63.3 % (36.0-66.0); PLATELET COUNT, AUTOMATED 272 10^3/uL (150-450); RED BLOOD COUNT 5.05 10^6/uL (4.00-5.40); WHITE BLOOD COUNT 9.6 10^3/uL (4.0-10.0)
[2021-09-19 18:06] LABS: BILIRUBIN,TOTAL 0.5 MG/DL (0.2-1.0); CALCIUM LEVEL 10.9 MG/DL (8.8-10.2); CREATININE FOR GFR 0.98 MG/DL (0.55-1.30); POTASSIUM SERUM 4.7 MEQ/L (3.5-5.1); TOTAL PROTEIN 7.8 GM/DL (6.4-8.2)
[2021-09-19 18:07] LABS: HEMOGLOBIN A1c 6.3 %
== END ==
LOC: M PLALAB 15:31
PROVIDERS: ATTEND Physician Assistant
DX: R07.89 Other chest pain (principal); E11.9 Type 2 diabetes mellitus without complications

== ENCOUNTER → 2021-09-21 | Outpatient (CLI) | payer MEDICARE ==
[2021-09-21 15:43] LABS: ALBUMIN 4.4 GM/DL (3.2-5.2); BILIRUBIN,TOTAL 0.9 MG/DL (0.2-1.0); CALCIUM LEVEL 11.4 MG/DL (8.8-10.2); CREATININE FOR GFR 1.12 MG/DL (0.55-1.30); GLOMERULAR FILTRATION RATE 49.7 (>32); MAGNESIUM LEVEL 2.4 MG/DL (1.8-2.4); POTASSIUM SERUM 4.4 MEQ/L (3.5-5.1); PTH INTACT 95.9 PG/ML (18.5-88.0); TOTAL PROTEIN 7.2 GM/DL (6.4-8.2)
== END ==
LOC: M CARPUL 13:03
PROVIDERS: ATTEND Physician Assistant
DX: R07.89 Other chest pain (principal)

== ENCOUNTER → 2021-10-05 | Outpatient (CLI) | payer MEDICARE ==
[2021-10-05 17:59] LABS: BILIRUBIN,TOTAL 0.4 MG/DL (0.2-1.0); CALCIUM LEVEL 11.1 MG/DL (8.8-10.2); CREATININE FOR GFR 0.99 MG/DL (0.55-1.30); GLOMERULAR FILTRATION RATE 57.3 (>32); POTASSIUM SERUM 4.4 MEQ/L (3.5-5.1); TOTAL PROTEIN 7.5 GM/DL (6.4-8.2)
== END ==
LOC: M PLALAB 16:06
PROVIDERS: ATTEND Physician Assistant
DX: I51.7 Cardiomegaly (principal); E83.52 Hypercalcemia; R07.89 Other chest pain

== ENCOUNTER → 2022-01-22 | Outpatient (CLI) | payer MEDICARE ==
[~2022-01-22] MED LIST changes: +FAMO1TAB11 PO; +PROBCAP14 PO
== END ==
LOC: M LABSMTC 09:21
PROVIDERS: ATTEND Anesthesiology
DX: Z01.812 Encounter for preprocedural laboratory examination (principal); Z20.822 Contact with and (suspected) exposure to COVID-19

== ENCOUNTER 2022-01-24 10:00 | Day surgery (SDC) | payer MEDICARE ==
[~2022-01-24] VITALS: Ht 162.6 cm; Wt 64.3 kg
[~2022-01-24 10:00] MED LIST changes: +BSS IRRIG/VANCO(10MG)/TOBRA(5MG)/EPINEPH(1:1000-0.5CC)500ML BAG-ORONLY IR ONE; +CEFUROXIME 1MG/0.1ML INTRACAMERAL INJ As Ordered ONE; +LIDOCAINE 1% SDV 5ML VIAL As Ordered ONE; +LIDOCAINE 3.5 % 1ML OPHTH TOPICAL GEL OU ONE; +OFLOXACIN 0.3 % (OCUFLOX) OPTH SOL 5ML OD ONE; +PHENYLEPHRINE HCL 10 % OPHTH. SOL 5ML OD PRN
[2022-01-24] MEDS: CYCLOPENTOLATE 1% OPHTH SOLN 2 ML BTL OD SCH ×2 (10:50→11:02)
[2022-01-24] MEDS: TROPICAMIDE 1% OPHTH SOLN 2ML OD SCH ×2 (10:50→11:02)
[2022-01-24] MEDS: PHENYLEPHRINE 2.5% OPHTH SOL 2ML OD SCH ×2 (10:50→11:02)
[2022-01-24] MEDS ORDERED: MIDAZOLAM INJ 2MG/2ML VIAL (J2250 PER 1MG) As Ordered ONE (11:49)
[2022-01-24 12:43] VITALS: BP 164/77
== END 2022-01-24 12:58 | disposition home or self-care (01) ==
LOC: M SDC 10:00
PROVIDERS: ATTEND Ophthalmology
DX: H25.11 Age-related nuclear cataract, right eye (principal); I10 Essential (primary) hypertension; E78.5 Hyperlipidemia, unspecified; E11.9 Type 2 diabetes mellitus without complications; J45.909 Unspecified asthma, uncomplicated; E03.9 Hypothyroidism, unspecified; N18.4 Chronic kidney disease, stage 4 (severe); I25.10 Atherosclerotic heart disease of native coronary artery without angina pectoris; I50.9 Heart failure, unspecified; F41.9 Anxiety disorder, unspecified; F32.A Depression, unspecified; Z79.82 Long term (current) use of aspirin; Z79.899 Other long term (current) drug therapy; K57.92 Diverticulitis of intestine, part unspecified, without perforation or abscess without bleeding; Z88.8 Allergy status to other drugs, medicaments and biological substances; K58.8 Other irritable bowel syndrome; K21.9 Gastro-esophageal reflux disease without esophagitis
CPT/HCPCS: 66984; J0697; J2250; V2788

== ENCOUNTER → 2022-02-05 | Outpatient (CLI) | payer MEDICARE ==
[~2022-02-05] MED LIST changes: -BSS IRRIG/VANCO(10MG)/TOBRA(5MG)/EPINEPH(1:1000-0.5CC)500ML BAG-ORONLY IR ONE; -CEFUROXIME 1MG/0.1ML INTRACAMERAL INJ As Ordered ONE; -LIDOCAINE 1% SDV 5ML VIAL As Ordered ONE; -LIDOCAINE 3.5 % 1ML OPHTH TOPICAL GEL OU ONE; -OFLOXACIN 0.3 % (OCUFLOX) OPTH SOL 5ML OD ONE; -PHENYLEPHRINE HCL 10 % OPHTH. SOL 5ML OD PRN
== END ==
LOC: M LABSMTC 10:34
PROVIDERS: ATTEND Anesthesiology
DX: Z01.812 Encounter for preprocedural laboratory examination (principal); Z11.52 Encounter for screening for COVID-19

== ENCOUNTER 2022-02-07 09:38 | Day surgery (SDC) | payer MEDICARE ==
[~2022-02-07] VITALS: Ht 162.6 cm; Wt 63.9 kg
[~2022-02-07 09:38] MED LIST changes: +CEFUROXIME 1MG/0.1ML INTRACAMERAL INJ As Ordered ONE; +LIDOCAINE 1% 1ML PF SYRINGE (OR EYE CASES) As Ordered ONE
[2022-02-07] MEDS ORDERED: MIDAZOLAM INJ 2MG/2ML VIAL (J2250 PER 1MG) As Ordered ONE (10:21)
[2022-02-07] MEDS ORDERED: fentaNYL 100 MCG/2 ML INJECTION As Ordered ONE (10:21)
[2022-02-07 11:35] VITALS: BP 154/71
[2022-02-07] MEDS ORDERED: PHENYLEPHRINE HCL 10 % OPHTH. SOL 5ML OS PRN (11:35)
[2022-02-07] MEDS ORDERED: BSS IRRIG/VANCO(10MG)/TOBRA(5MG)/EPINEPH(1:1000-0.5CC)500ML BAG-ORONLY IR ONE (11:35)
[2022-02-07] MEDS ORDERED: PHENYLEPHRINE 2.5% OPHTH SOL 2ML OS SCH (11:35)
[2022-02-07] MEDS ORDERED: TROPICAMIDE 1% OPHTH SOLN 2ML OS SCH (11:35)
[2022-02-07] MEDS ORDERED: OFLOXACIN 0.3 % (OCUFLOX) OPTH SOL 5ML OS ONE (11:35)
[2022-02-07] MEDS ORDERED: LIDOCAINE 3.5 % 1ML OPHTH TOPICAL GEL OU ONE (11:35)
[2022-02-07] MEDS ORDERED: CYCLOPENTOLATE 1% OPHTH SOLN 2 ML BTL OS SCH (11:35)
== END 2022-02-07 12:29 | disposition home or self-care (01) ==
LOC: M SDC 09:38
PROVIDERS: ATTEND Ophthalmology
DX: H25.12 Age-related nuclear cataract, left eye (principal); I25.10 Atherosclerotic heart disease of native coronary artery without angina pectoris; I12.9 Hypertensive chronic kidney disease with stage 1 through stage 4 chronic kidney disease, or unspecified chronic kidney disease; N18.4 Chronic kidney disease, stage 4 (severe); E78.5 Hyperlipidemia, unspecified; E11.9 Type 2 diabetes mellitus without complications; E03.9 Hypothyroidism, unspecified; K58.8 Other irritable bowel syndrome; K21.9 Gastro-esophageal reflux disease without esophagitis; F41.9 Anxiety disorder, unspecified; F32.A Depression, unspecified; Z86.73 Personal history of transient ischemic attack (TIA), and cerebral infarction without residual deficits; D64.9 Anemia, unspecified; Z79.82 Long term (current) use of aspirin; Z79.899 Other long term (current) drug therapy; J45.909 Unspecified asthma, uncomplicated
CPT/HCPCS: 66984; J0697; J2250; J3010; V2632

== ENCOUNTER → 2022-02-28 | Outpatient (REF) | payer MEDICARE ==
[~2022-02-28] MED LIST changes: -CEFUROXIME 1MG/0.1ML INTRACAMERAL INJ As Ordered ONE; -LIDOCAINE 1% 1ML PF SYRINGE (OR EYE CASES) As Ordered ONE
== END ==
LOC: M LAB REF 17:36
PROVIDERS: ATTEND Nurse Practitioner Family
DX: N39.0 Urinary tract infection, site not specified (principal)

== ENCOUNTER → 2022-07-10 | Outpatient (REF) | payer MEDICARE ==
[2022-07-10 17:55] LABS: BASO % 0.2 % (0.0-1.0); EOS # 0.2 10^3/uL (0.0-0.5); EOS % 2.2 % (0.0-3.0); HEMATOCRIT 44.6 % (36.0-47.0); HEMOGLOBIN 14.7 g/dl (12.0-15.5); LYMPH # 2.3 10^3/uL (1.5-5.0); LYMPH % 25.4 % (24.0-44.0); MONO # 0.7 10^3/uL (0.0-0.8); NEUTROPHILS # 5.9 10^3/uL (1.5-8.5); NEUTROPHILS % 63.9 % (36.0-66.0); PLATELET COUNT, AUTOMATED 267 10^3/uL (150-450); RED BLOOD COUNT 5.07 10^6/uL (4.00-5.40); WHITE BLOOD COUNT 9.2 10^3/uL (4.0-10.0)
[2022-07-10 18:15] LABS: HEMOGLOBIN A1c 6.6 % (4.0-6.0)
[2022-07-10 18:16] LABS: ALKALINE PHOSPHATASE 138 U/L (46-116); ALT/SGPT 17 U/L (7.0-40); AST/SGOT 13 U/L (<34); BILIRUBIN,TOTAL 0.4 MG/DL (0.3-1.2); BLOOD UREA NITROGEN 25 MG/DL (9-23); CALCIUM LEVEL 10.5 MG/DL (8.3-10.6); CARBON DIOXIDE LEVEL 27 MMOL/L (20-31); CHLORIDE LEVEL 104 MMOL/L (98-107); CHOLESTEROL LEVEL 149 MG/DL (<200); CHOLESTEROL RISK RATIO 3.09 (<5); CREATININE FOR GFR 0.77 MG/DL (0.55-1.30); GLOMERULAR FILTRATION RATE > 60.0 (>32); GLUCOSE, FASTING 114 MG/DL (74-106); HDL CHOLESTEROL 48.2 MG/DL (>40); LDL CHOLESTEROL 74.8 MG/DL (<100); NON-HDL-C 100.8 MG/DL; POTASSIUM SERUM 4.3 MMOL/L (3.5-5.1); SODIUM LEVEL 138 MMOL/L (136-145); THYROID STIMULATING HORMONE 0.349 uIU/ML (0.55-4.78); TOTAL PROTEIN 7.1 G/DL (5.7-8.2); TRIGLYCERIDES LEVEL 130 MG/DL (<150)
[2022-07-10 18:17] LABS: TOTAL 25(OH) VITAMIN D 20.1 NG/ML (20.0-100.0)
[2022-07-11 13:13] LABS: APPEARANCE, URINE HAZY (CLEAR); BACTERIA, URINE AUTO NEGATIVE (NEGATIVE); BILIRUBIN, URINE AUTO NEGATIVE (NEGATIVE); BLOOD, URINE BLOOD NEGATIVE (NEGATIVE); CALCIUM OXALATE CRYSTALS LARGE; COLOR, URINE YELLOW (YELLOW); GLUCOSE, URINE (UA) AUTO NEGATIVE (NEGATIVE); KETONE, URINE AUTO NEGATIVE (NEGATIVE); LEUKOCYTE ESTERASE, URINE AUTO 3+ (NEGATIVE); MUCUS, URINE SMALL (NEGATIVE); NITRITE, URINE AUTO NEGATIVE (NEGATIVE); PROTEIN, URINE AUTO 2+ mg/dL (NEGATIVE); RBC, URINE AUTO 3 /HPF (0-3); SPECIFIC GRAVITY URINE AUTO 1.016 (1.002-1.035); SQUAMOUS EPITHELIAL CELL UR AU 3 /HPF (0-6); UROBILINOGEN, URINE AUTO 0.2 mg/dL (0.0-2.0); WBC, URINE AUTO 46 /HPF (0-3)
== END ==
LOC: M LAB REF 16:43
PROVIDERS: ATTEND Nurse Practitioner Family
DX: E11.9 Type 2 diabetes mellitus without complications (principal); Z68.24 Body mass index [BMI] 24.0-24.9, adult; E55.9 Vitamin D deficiency, unspecified; R53.83 Other fatigue; R30.0 Dysuria

== ENCOUNTER → 2022-08-16 | Outpatient (REF) | payer MEDICARE | LOC: M LAB REF 18:53 | PROVIDERS: ATTEND Nurse Practitioner Adult Health | DX: R30.0 Dysuria (principal) ==

== ENCOUNTER → 2022-09-14 | Outpatient (REF) | payer MEDICARE | LOC: M LAB REF 17:06 | PROVIDERS: ATTEND Nurse Practitioner Family | DX: N39.0 Urinary tract infection, site not specified (principal) ==

== ENCOUNTER → 2022-09-24 | Outpatient (REF) | payer MEDICARE ==
[2022-09-26 12:09] LABS: APPEARANCE, URINE CLEAR (CLEAR); BACTERIA, URINE AUTO NEGATIVE (NEGATIVE); BILIRUBIN, URINE AUTO NEGATIVE (NEGATIVE); BLOOD, URINE BLOOD NEGATIVE (NEGATIVE); COLOR, URINE STRAW (YELLOW); GLUCOSE, URINE (UA) AUTO NEGATIVE (NEGATIVE); KETONE, URINE AUTO NEGATIVE (NEGATIVE); LEUKOCYTE ESTERASE, URINE AUTO 2+ (NEGATIVE); NITRITE, URINE AUTO NEGATIVE (NEGATIVE); PROTEIN, URINE AUTO 1+ mg/dL (NEGATIVE); RBC, URINE AUTO 1 /HPF (0-3); SPECIFIC GRAVITY URINE AUTO 1.011 (1.002-1.035); SQUAMOUS EPITHELIAL CELL UR AU 0 /HPF (0-6); UROBILINOGEN, URINE AUTO 0.2 mg/dL (0.0-2.0); WBC, URINE AUTO 68 /HPF (0-3)
== END ==
LOC: M LAB REF 11:18
PROVIDERS: ATTEND Nurse Practitioner Family
DX: R30.0 Dysuria (principal)

== ENCOUNTER → 2023-07-11 | Outpatient (REF) | payer MEDICARE ==
[~2023-07-11] MED LIST changes: -ASPI-161 PO; +ASPI-615 PO
[2023-07-12 12:21] LABS: APPEARANCE, URINE HAZY (CLEAR); BACTERIA, URINE AUTO NEGATIVE (NEGATIVE); BILIRUBIN, URINE AUTO NEGATIVE (NEGATIVE); BLOOD, URINE BLOOD NEGATIVE (NEGATIVE); CALCIUM OXALATE CRYSTALS SMALL; COLOR, URINE YELLOW (YELLOW); GLUCOSE, URINE (UA) AUTO NEGATIVE (NEGATIVE); KETONE, URINE AUTO NEGATIVE (NEGATIVE); LEUKOCYTE ESTERASE, URINE AUTO TRACE (NEGATIVE); MUCUS, URINE SMALL (NEGATIVE); NITRITE, URINE AUTO NEGATIVE (NEGATIVE); PROTEIN, URINE AUTO 2+ mg/dL (NEGATIVE); RBC, URINE AUTO 3 /HPF (0-3); SPECIFIC GRAVITY URINE AUTO 1.026 (1.002-1.035); SQUAMOUS EPITHELIAL CELL UR AU 2 /HPF (0-6); UROBILINOGEN, URINE AUTO 0.2 mg/dL (0.0-2.0); WBC, URINE AUTO 16 /HPF (0-3)
[2023-07-12 13:37] LABS: CREATININE, URINE 140.6 MG/DL
== END ==
LOC: M LAB REF 11:26
PROVIDERS: ATTEND Nurse Practitioner Family
DX: E11.9 Type 2 diabetes mellitus without complications (principal); Z79.899 Other long term (current) drug therapy

== ENCOUNTER → 2023-10-24 | Outpatient (REF) | payer MEDICARE ==
[2023-10-25 13:44] LABS: HEMOGLOBIN A1c 6.1 % (4.0-6.0)
[2023-10-25 14:04] LABS: CHOLESTEROL RISK RATIO 3.33 (<5); HDL CHOLESTEROL 47.1 MG/DL (>40); LDL CHOLESTEROL 79.1 MG/DL (<100); NON-HDL-C 109.9 MG/DL
[2023-10-25 14:07] LABS: THYROID STIMULATING HORMONE 0.442 uIU/ML (0.55-4.78)
== END ==
LOC: M LAB REF 12:34
PROVIDERS: ATTEND Nurse Practitioner Family
DX: E11.9 Type 2 diabetes mellitus without complications (principal)

== ENCOUNTER 2024-03-22 13:19 | Emergency (ER) | payer MEDICARE ==
[~2024-03-22] VITALS: Ht 162.6 cm; Wt 62.7 kg
[~2024-03-22 13:19] MED LIST changes: +GABA-1172 PO; -GABA-282 PO
[2024-03-22 13:23] VITALS: BP 182/86; TEMP 96.3; O2SAT 97
[2024-03-22] MEDS ORDERED: AMLO1TAB24 (13:32)
[2024-03-22] MEDS ORDERED: METF-838 (13:32)
[2024-03-22] MEDS ORDERED: OXYB5TAB14 (13:32)
[2024-03-22] MEDS ORDERED: SULF1TAB23 PO (15:58)
== END 2024-03-22 16:18 | disposition home or self-care (01) ==
LOC: M ED 13:19
DX: N30.00 Acute cystitis without hematuria (principal); Z88.8 Allergy status to other drugs, medicaments and biological substances; Z79.899 Other long term (current) drug therapy

== ENCOUNTER → 2024-04-30 | Outpatient (REF) | payer MEDICARE ==
[~2024-04-30] MED LIST changes: +AMLO1TAB24; +METF-838; +OXYB5TAB14; +SULF1TAB23 PO
[2024-04-30 17:11] LABS: APPEARANCE, URINE CLOUDY (CLEAR); BACTERIA, URINE AUTO 1+ (NEGATIVE); BILIRUBIN, URINE AUTO NEGATIVE (NEGATIVE); BLOOD, URINE BLOOD NEGATIVE (NEGATIVE); COLOR, URINE YELLOW (YELLOW); GLUCOSE, URINE (UA) AUTO NEGATIVE (NEGATIVE); KETONE, URINE AUTO NEGATIVE (NEGATIVE); LEUKOCYTE ESTERASE, URINE AUTO 3+ (NEGATIVE); MUCUS, URINE SMALL (NEGATIVE); NITRITE, URINE AUTO NEGATIVE (NEGATIVE); PROTEIN, URINE AUTO 2+ mg/dL (NEGATIVE); RBC, URINE AUTO 1 /HPF (0-3); SQUAMOUS EPITHELIAL CELL UR AU 0 /HPF (0-6); UROBILINOGEN, URINE AUTO 0.2 mg/dL (0.0-2.0); WBC, URINE AUTO TNTC /HPF (0-3)
== END ==
LOC: M SMT 16:50
PROVIDERS: ATTEND Physician Assistant
DX: N39.0 Urinary tract infection, site not specified (principal)

== ENCOUNTER → 2024-05-04 | Outpatient (REF) | payer MEDICARE ==
[2024-05-05 13:30] LABS: FREE T4 1.22 NG/DL (0.89-1.76); THYROID STIMULATING HORMONE 0.648 uIU/ML (0.55-4.78)
== END ==
LOC: M LAB REF 12:22
PROVIDERS: ATTEND Nurse Practitioner Family
DX: R94.6 Abnormal results of thyroid function studies (principal)

== ENCOUNTER → 2024-05-20 | Outpatient (REF) | payer MEDICARE | LOC: M LAB REF 16:49 | PROVIDERS: ATTEND Nurse Practitioner Family | DX: N39.0 Urinary tract infection, site not specified (principal) ==

== ENCOUNTER → 2024-06-10 | Outpatient (REF) | payer MEDICARE | LOC: M SFHCDERM 18:07 | PROVIDERS: ATTEND Physician Assistant | DX: L57.0 Actinic keratosis (principal) | CPT/HCPCS: 11102; 17004; 88305; G0463 ==

== ENCOUNTER → 2024-07-22 | Outpatient (REF) | payer MEDICARE ==
[~2024-07-22] MED LIST changes: -FLOM0.4C39 PO; +TAMS-18 PO
[2024-07-23 13:31] LABS: APPEARANCE, URINE HAZY (CLEAR); BACTERIA, URINE AUTO 1+ (NEGATIVE); BILIRUBIN, URINE AUTO NEGATIVE (NEGATIVE); BLOOD, URINE BLOOD 2+ (NEGATIVE); COLOR, URINE AMBER (YELLOW); GLUCOSE, URINE (UA) AUTO NEGATIVE (NEGATIVE); KETONE, URINE AUTO NEGATIVE (NEGATIVE); LEUKOCYTE ESTERASE, URINE AUTO 2+ (NEGATIVE); NITRITE, URINE AUTO POSITIVE (NEGATIVE); PROTEIN, URINE AUTO 2+ mg/dL (NEGATIVE); RBC, URINE AUTO 20 /HPF (0-3); SPECIFIC GRAVITY URINE AUTO 1.011 (1.002-1.035); SQUAMOUS EPITHELIAL CELL UR AU 0 /HPF (0-6); WBC, URINE AUTO 154 /HPF (0-3)
== END ==
LOC: M SMT 12:58
PROVIDERS: ATTEND Physician Assistant
DX: R39.9 Unspecified symptoms and signs involving the genitourinary system (principal)

== ENCOUNTER → 2024-07-30 | Outpatient (REF) | payer MEDICARE ==
[2024-07-30 18:48] LABS: BASO # 0.1 10^3/uL (0.0-0.2); BASO % 0.6 % (0.0-1.0); EOS # 0.4 10^3/uL (0.0-0.5); EOS % 4.7 % (0.0-3.0); HEMOGLOBIN 13.7 g/dl (12.0-15.5); LYMPH # 2.6 10^3/uL (1.5-5.0); LYMPH % 30.6 % (24.0-44.0); MEAN CORPUSCULAR HEMOGLOBIN 29.1 pg (27.0-33.0); MEAN CORPUSCULAR HGB CONC 32.6 g/dl (32.0-36.5); MEAN CORPUSCULAR VOLUME 89.2 fl (80.0-96.0); MONO # 0.8 10^3/uL (0.0-0.8); MONO % 8.8 % (2.0-8.0); NEUTROPHILS # 4.7 10^3/uL (1.5-8.5); NEUTROPHILS % 54.9 % (36.0-66.0); PLATELET COUNT, AUTOMATED 271 10^3/uL (150-450); RED BLOOD COUNT 4.71 10^6/uL (4.00-5.40); WHITE BLOOD COUNT 8.6 10^3/uL (4.0-10.0)
[2024-07-30 19:12] LABS: HEMOGLOBIN A1c 5.9 % (4.0-6.0)
[2024-07-30 19:23] LABS: CALCIUM LEVEL 10.5 MG/DL (8.3-10.6); CREATININE FOR GFR 0.79 MG/DL (0.55-1.30); GLOMERULAR FILTRATION RATE 73.7 (>32); MAGNESIUM LEVEL 2.3 MG/DL (1.8-2.4); POTASSIUM SERUM 4.8 MMOL/L (3.5-5.1); THYROID STIMULATING HORMONE 0.533 uIU/ML (0.55-4.78)
[2024-07-30 19:24] LABS: FREE T4 1.26 NG/DL (0.89-1.76)
== END ==
LOC: M LAB REF 17:18
PROVIDERS: ATTEND Nurse Practitioner Family
DX: E11.9 Type 2 diabetes mellitus without complications (principal); I10 Essential (primary) hypertension; R94.6 Abnormal results of thyroid function studies; R25.2 Cramp and spasm

== ENCOUNTER → 2024-10-13 | Outpatient (REF) | payer MEDICARE ==
[~2024-10-13] MED LIST changes: -BIOT1000 PO; +BIOT10002 PO
[2024-10-13 17:30] LABS: APPEARANCE, URINE TURBID (CLEAR); BACTERIA, URINE AUTO 1+ (NEGATIVE); BILIRUBIN, URINE AUTO NEGATIVE (NEGATIVE); BLOOD, URINE BLOOD 1+ (NEGATIVE); GLUCOSE, URINE (UA) AUTO NEGATIVE (NEGATIVE); KETONE, URINE AUTO NEGATIVE (NEGATIVE); LEUKOCYTE ESTERASE, URINE AUTO 2+ (NEGATIVE); NITRITE, URINE AUTO NEGATIVE (NEGATIVE); PROTEIN, URINE AUTO 2+ mg/dL (NEGATIVE); RBC, URINE AUTO 1 /HPF (0-3); SPECIFIC GRAVITY URINE AUTO 1.009 (1.002-1.035); SQUAMOUS EPITHELIAL CELL UR AU 0 /HPF (0-6); UROBILINOGEN, URINE AUTO 0.2 mg/dL (0.0-2.0); WBC, URINE AUTO TNTC /HPF (0-3)
== END ==
LOC: M SMT 16:46
PROVIDERS: ATTEND Physician Assistant
DX: R39.9 Unspecified symptoms and signs involving the genitourinary system (principal)

== ENCOUNTER → 2024-10-26 | Outpatient (CLI) | payer MEDICARE | LOC: M LAB 14:39 | PROVIDERS: ATTEND Orthopaedic Surgery | DX: M25.559 Pain in unspecified hip (principal) ==

== ENCOUNTER → 2024-10-29 | Outpatient (CLI) | payer MEDICARE ==
[2024-10-29 16:28] LABS: BASO # 0.0 10^3/uL (0.0-0.2); BASO % 0.4 % (0.0-1.0); EOS # 0.4 10^3/uL (0.0-0.5); EOS % 3.6 % (0.0-3.0); LYMPH # 2.8 10^3/uL (1.5-5.0); LYMPH % 29.5 % (24.0-44.0); MONO # 0.7 10^3/uL (0.0-0.8); MONO % 7.7 % (2.0-8.0); NEUTROPHILS # 5.6 10^3/uL (1.5-8.5); NEUTROPHILS % 58.4 % (36.0-66.0); PLATELET COUNT, AUTOMATED 259 10^3/uL (150-450)
[2024-10-29 16:43] LABS: IRON (FE) 50.0 UG/DL (50-170); PERCENT SATURATION 16.3 % (13.2-45.0)
[2024-10-29 17:05] LABS: ESTIMATED AVERAGE GLUCOSE 117.0 MG/DL (60-110)
== END ==
LOC: M LAB 15:33
PROVIDERS: ATTEND Orthopaedic Surgery
DX: M25.559 Pain in unspecified hip (principal); R94.6 Abnormal results of thyroid function studies; Z79.899 Other long term (current) drug therapy

== ENCOUNTER → 2024-10-29 | Outpatient (CLI) | payer MEDICARE | LOC: M LAB 15:29 | PROVIDERS: ATTEND Nurse Practitioner Family | DX: R94.6 Abnormal results of thyroid function studies (principal) ==

== ENCOUNTER → 2024-11-18 | Outpatient (REF) | payer MEDICARE | LOC: M LAB REF 17:24 | PROVIDERS: ATTEND Nurse Practitioner Family | DX: N39.0 Urinary tract infection, site not specified (principal) ==

== ENCOUNTER → 2024-12-07 | Outpatient (CLI) | payer MEDICARE | LOC: M RAD 11:12 | PROVIDERS: ATTEND Nurse Practitioner Family | DX: M17.11 Unilateral primary osteoarthritis, right knee (principal) ==

== ENCOUNTER 2025-01-30 09:45 | Emergency (ER) | payer MEDICARE ==
[~2025-01-30] VITALS: Ht 170.2 cm; Wt 51.2 kg
[2025-01-30] MEDS ORDERED: ROSU5TAB49 (10:00)
[2025-01-30] MEDS ORDERED: CINA30TA5 (10:00)
[2025-01-30 10:30] LABS: BASO # 0.0 10^3/uL (0.0-0.2); BASO % 0.3 % (0.0-1.0); EOS # 0.3 10^3/uL (0.0-0.5); EOS % 3.9 % (0.0-3.0); LYMPH # 1.4 10^3/uL (1.5-5.0); LYMPH % 19.3 % (24.0-44.0); MONO # 0.5 10^3/uL (0.0-0.8); MONO % 6.1 % (2.0-8.0); NEUTROPHILS # 5.2 10^3/uL (1.5-8.5); NEUTROPHILS % 70.1 % (36.0-66.0); PLATELET COUNT, AUTOMATED 282 10^3/uL (150-450)
[2025-01-30 10:46] LABS: KETONE, URINE AUTO RFX NEGATIVE (NEGATIVE); LEUKOCYTE ESTERASE UR AUTO RFX TRACE (NEGATIVE); MUCUS, URINE RFX SMALL (NEGATIVE); NITRITE, URINE AUTO RFX POSITIVE (NEGATIVE); RBC, URINE AUTO RFX 6 /HPF (0-3); SQUAM EPITHELIAL CELL UR AURFX 0 /HPF (0-6); WBC, URINE AUTO RFX 35 /HPF (0-3)
[2025-01-30 10:59] LABS: CALCIUM LEVEL 10.2 MG/DL (8.3-10.6); CARBON DIOXIDE LEVEL 26.0 MMOL/L (20-31); CHLORIDE LEVEL 103.0 MMOL/L (98-107); CREATININE FOR GFR 0.82 MG/DL (0.55-1.30); GLOMERULAR FILTRATION RATE 70.5 (>32); POTASSIUM SERUM 3.6 MMOL/L (3.5-5.1); SODIUM LEVEL 142.0 MMOL/L (136-145)
[2025-01-30 11:47] VITALS: TEMP 98
[2025-01-30 12:38] VITALS: BP 180/80
[2025-01-30] MEDS: amLODIPine 5 MG TAB PO ONE (12:38)
[2025-01-30] MEDS ORDERED: CEFP200T PO (12:42)
[2025-01-30 14:15] VITALS: BP 143/89; O2SAT 95
== END 2025-01-30 14:45 | disposition home or self-care (01) ==
LOC: M ED 09:45
DX: N30.00 Acute cystitis without hematuria (principal); E11.9 Type 2 diabetes mellitus without complications; K58.9 Irritable bowel syndrome, unspecified; I10 Essential (primary) hypertension; I50.9 Heart failure, unspecified; Z88.5 Allergy status to narcotic agent; Z88.6 Allergy status to analgesic agent; Z88.8 Allergy status to other drugs, medicaments and biological substances; Z79.1 Long term (current) use of non-steroidal anti-inflammatories (NSAID); Z79.82 Long term (current) use of aspirin; Z79.899 Other long term (current) drug therapy; Z79.4 Long term (current) use of insulin

== ENCOUNTER → 2025-02-15 | Outpatient (REF) | payer MEDICARE ==
[~2025-02-15] MED LIST changes: +CEFP200T PO; +CINA30TA5; +ROSU5TAB49; +SULF-7 PO; -SULF1TAB23 PO
[2025-02-15 15:26] LABS: BASO # 0.0 10^3/uL (0.0-0.2); BASO % 0.3 % (0.0-1.0); EOS # 0.5 10^3/uL (0.0-0.5); EOS % 5.2 % (0.0-3.0); LYMPH # 1.5 10^3/uL (1.5-5.0); LYMPH % 16.6 % (24.0-44.0); MONO # 0.9 10^3/uL (0.0-0.8); MONO % 9.3 % (2.0-8.0); NEUTROPHILS # 6.3 10^3/uL (1.5-8.5); NEUTROPHILS % 68.2 % (36.0-66.0); PLATELET COUNT, AUTOMATED 332 10^3/uL (150-450)
[2025-02-15 15:32] LABS: IRON (FE) 27.0 UG/DL (50-170); PERCENT SATURATION 8.9 % (13.2-45.0)
[2025-02-15 15:35] LABS: FREE T4 1.29 NG/DL (0.89-1.76)
[2025-02-15 16:07] LABS: ESTIMATED AVERAGE GLUCOSE 111.0 MG/DL (60-110)
== END ==
LOC: M LAB REF 14:14
PROVIDERS: ATTEND Nurse Practitioner Family
DX: E11.9 Type 2 diabetes mellitus without complications (principal); R53.83 Other fatigue